=== PATIENT | female | born 1995 | race Caucasian/White ===

== ENCOUNTER 2023-03-31 14:00 | Outpatient (AMB) | payer OTHER, SELFPAY ==
--- NOTE | 2023-03-31 14:40 | AM.OFFWIN_ITS ---
Intake Vital Signs 03/31/23 15:24 Height 5 ft 2 in Weight 261 lb BMI 47.7 BP 114/70 Blood Pressure Location Lt brachial Position Sitting Pulse 96 Pulse Source Pulse Oximeter Temp 98.1 F Temp Source Temporal Artery Scan Pulse Oximetry (%) 99 Oxygen Delivery Method Room Air Intake Visit Reasons: EST/sore throat (lobby masked) Intake Note: pt is here today for sore throat started yesterday Allergies No Known Allergies Allergy (Verified 03/31/23 15:41) Medication List - Last Reconciled 03/31/23 by Bruce Mcgrath MD No Known Home Meds Do you need a note to return to daycare/school/sports/work: Yes HPI EST/sore throat (lobby masked) HPI Details Patient presents for a sick visit. Reporting symptoms of sinus congestion, sore throat and difficulty swallowing. Low-grade fever. No family member is sick. No recent travel. Patient reports symptoms of malaise and fatigue. HPI Comments History of Present Illness Details Patient is a 28-year-old female in today for a sick visit. Physical Exam Vital Signs: Last Vital Signs Temp 98.1 F 03/31/23 15:24 Pulse 96 03/31/23 15:24 BP 114/70 03/31/23 15:24 Pulse Ox 99 03/31/23 15:24 Oxygen Delivery Method Room Air 03/31/23 15:24 BMI result Body Mass Index 47.7 Const General: cooperative and healthy appearing Nutritional Appearance: well nourished Orientation/consciousness: patient oriented x3 Limitations: no limitations HEENT Head: Yes normal to inspection Eyes General: appearance normal, both eyes and all related structures Neck Neck: Yes normal visual inspection Chest Chest palpation & inspection: normal palpation of entire chest wall Resp Effort & Inspection: normal respiratory effort Neuro General: patient oriented x3 Results AMB Rapid Strep AMB Rapid Strep Negative Last Edit by SKYLER Taylor on 03/31/23 15: 52 Results Reviewed Results Reviewed: Laboratory Last Values Strep Scn [facility] Negative 03/31/23 15:51 Assessment & Plan Assessment & Plan (1) Upper respiratory tract infection: Code(s): J06.9 - Acute upper respiratory infection, unspecified Plan: Antibiotics ordered. Increase fluid intake. Tylenol for aches and pains. If symptoms worsen, follow-up here for a recheck. Orders: Orders AMB Rapid Strep Screen 03/31/23 Z13.9 - Encounter for screening, unspecified Medications: New azithromycin take 500 mg today (day 1), then 250 mg for 4 days (days 2-5) PO 6 tabs 0RF Coding Level of Care Code Est Pt Level 3 (35071) Diagnoses Upper respiratory tract infection J06.9
[2023-03-31 15:24] VITALS: BP 114/70; PULSE 96; TEMP 36.7; O2SAT 99; BMI 47.7
== END 2023-03-31 17:06 | disposition home or self-care (01) ==
PROVIDERS: Visit Provider Internal Medicine
DX: J06.9 Acute upper respiratory infection, unspecified (principal)
CPT/HCPCS: 87880; 99213

== ENCOUNTER 2023-12-17 10:24 | Outpatient (AMB) | payer OTHER, SELFPAY ==
--- NOTE | 2023-12-17 10:56 | MHC.PC.OV ---
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 Physical Exam Intake Note: New patient visit Talent Development Coordinator Required: No Allergies No Known Allergies Allergy (Verified 12/17/23 11:05) Medication List - Last Reconciled 12/17/23 by Becca Miller, [facility] albuterol sulfate 90 mcg/actuation 2 puffs inhalation Q6H PRN Tobacco use date assessed: 12/17/23 Dental Screening Dental Screen Date: 12/17/23 Did you have a dental visit in the last 12 months?: Yes Did you have a dental problem in the last 6 months where you did not have access to dental care?: No Was dental information given to patient?: Yes HPI HPI Comments History of Present Illness Details 28-year-old female with moderate persistent asthma, PCOS, morbid obesity, obstructive sleep apnea (home sleep study 05/18/2019), generalized anxiety disorder, seasonal allergies, prediabetes, hidradenitis suppurativa, fatty liver Status post appendectomy Family hx: Sister thyroid cancer 2022 age 27, Mom with MS, MGM DM, PGF COPD 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 Pediatric records reviewed prior to todays visit Sister dx w thyroid cancer 2022 HS - needs derm referral never had consult had nose bleed recently; came out left nares, + clot, lasted about 10 minutes, stopped. reports this is life long issue for her. denies signs of posterior bleeding. will be est care w new WASTEWATER T[employer]ATMENT PLANT SUPERVISOR leaving [facility] therapist in the past never been on meds, no hosp, no si/hi JETT not on CPAP, last sleep study 2019 Asthma PRN Varsha only, was active w/ pulm in the past. Declined flu Plan Routine screening labs today SBE edu provided today, do monthly on the same day as your birthday as your periods are irregular d/t PCOS Declined flu vaccine Refer to [facility] [place] endocrinology for evaluation of PCOS, prediabetes as well as for surveillance given the family history of thyroid cancer. Refer to dermatology for hidradenitis suppurativa Follow up with scale installer for routine fuel technician care Check sleep study to evaluate the degree of sleep apnea. It was mild in 2019. Not currently maintained on CPAP. Continue Varsha for asthma. Does not feel a maintenance inhaler as needed at this point. Check soft tissue ultrasound of the left lower extremity to evaluate the mass that is there. Return to the office in 6-8 weeks to follow up on labs consults and asthma, sooner as needed. This note is constructed using voice recognition software. While every effort has been made to ensure accuracy in network operations analyst, still errors may have been included Sometimes, these errors may affect the content or meaning of the given sentence . [facility] Medical History (Updated 12/18/23 @ 14:49 by Becca Miller [facility]) Anxiety IBS (irritable bowel syndrome) Asthma Surgical History (Updated 12/17/23 @ 11:10 by Patricia Reeves CMA) Hx of appendectomy Family History (Updated 12/17/23 @ 11:09 by Patricia Reeves CMA) Father HTN (hypertension) Maternal Grandmother Diabetes Mother Cancer Other Thyroid cancer Social History (Updated 12/17/23 @ 11:10 by Patricia Reeves CMA) Housing: House Patient Tobacco Use Status: Never used Tobacco e-Cigarette/Vaping Use: Never Used Second Hand Smoke Exposure: No service: No Current occupational status: employed 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 1. Little interest or pleasure in doing things: several days 2. Feeling down, depressed, or hopeless: several days 3. Trouble falling or staying asleep, or sleeping too much: more than half the days 4. Feeling tired or having little energy: several days 5. Poor appetite or overeating: not at all 6. Feeling bad about yourself - or that you are a failure or have let yourself or your family down: not at all 7. Trouble concentrating on things, such as reading the newspaper or watching television: not at all 8. Moving or speaking so slowly that other people could have noticed. Or the opposite - being so fidgety or restless that you have been moving around a lot more than usual: not at all 9. Thoughts that you would be better off or of hurting yourself in some way: not at all Total score: 5 Depression Screening Interpretation: Positive Depression Screening Done: Yes 13854 - PHQ-9 Billing: Yes Source: Developed by Drs. Avtar Tanner, Doris Akins, Raza Lobato and colleagues, with an educational viktor from [employer]. Thrive Questionnaire Date Thrive assessed: 12/17/23 I am a: Patient What is your living situation today?: I have a steady place to live Within the past 12 months, did the food you bought not last and you didn't have the money to get more?: Never true Within the past 12 months, did you worry whether your food would run out before you got money to buy more?: Never true Do you have trouble paying for medicines?: No Do you have trouble getting transportation to medical appointments?: No Do you have trouble paying your heating and electricity bill?: No Do you have trouble taking care of your child, family member or friend?: No Are you currently unemployed and looking for a job?: No Are you interested in more education?: Yes Please select the resources that you would like help with: Education Currently or been in a relationship where the following occur: No concerns reported THRIVE Score: 0 AUDIT C Alcohol Use Questionnaire (AUDIT-C) 1. How often do you have a drink containing alcohol?: Monthly or less 2. How many drinks containing alcohol do you have on a typical day when you are drinking?: 3 or 4 3. How often do you have six or more drinks on one occasion?: Never Total Score: 2 Score Reviewed/Action Taken: Yes FRANKLIN-7 AMB Questionnaire FRANKLIN-7 Date FRANKLIN - 7 assessed: 12/17/23 Feeling nervous, anxious, or on edge: 1 = Several days Not being able to stop or control worryin = Several days Worrying too much about different things: 1 = Several days Trouble relaxin = Several days Being so restless that it is hard to sit still: 0 = Not at all Becoming easily annoyed or irritable: 1 = Several days Feeling afraid as if something awful might happen: 0 = Not at all Total FRANKLIN-7 score (0-4 normal; 5-9 mild; 10-14 moderate; 15-21 severe): 5 Source: Developed by Drs. Avtar Tanner, Doris Akins, Raza Lobato and colleagues, with an educational viktor from [employer]. FRANKLIN-7 Assessment Billing FRANKLIN-7 Assessment Tool: FRANKLIN-7 Assessment 44654 ACT Questionnaire In the past 4 weeks, how much of the time did your asthma keep you from getting as much done at work, school or at home?: None of the time During the past 4 weeks, how often have you had shortness of breath?: 1-2 times a week During the past 4 weeks, how often did your asthma symptoms wake you up at night or earlier than usual in the morning?: Not at all During the past 4 weeks, how often have you had to use your rescue inhaler or nebulizer medication?: Once a week or less How would you rate your asthma control during the past 4 weeks?: Well controlled ACT Interpretation: Negative Score: 22 Review of Systems Const Details: Constitutional: Denies fever. Skin: Denies rash. Eye: Denies eye pain. ENMT: Denies sore throat and nasal congestion. Respiratory: Denies shortness of breath and cough. Gastrointestinal: Denies nausea, vomiting or abdominal pain. Cardiovascular: Denies chest pain and syncope. Genitourinary: Denies dysuria. Musculoskeletal: Denies back pain and extremity pain. Neurologic: Denies headaches, confusion, and weakness. Psychiatric: Denies suicidal thoughts and substance abuse. Allergy/ Immunologic: Denies impaired immunity. Physical exam (Primary Care) Vital Signs: Last Vital Signs Temp 98.8 F 12/17/23 11:01 Pulse 96 12/17/23 11:01 Resp 14 12/17/23 11:01 BP 108/84 12/17/23 11:01 Pulse Ox 97 12/17/23 11:01 Oxygen Delivery Method Room Air 12/17/23 11:01 BMI result Body Mass Index 47.2 BMI Assessment/Plan discussion: High BMI High, discussed plan: lifestyle Tobacco/Smoking Status: Tobacco use Status Tobacco use date assessed 12/17/23 12/17/23 11:11 Patient Tobacco Use Status Never used Tobacco 12/17/23 11:11 e-Cigarette/Vaping Use Never Used 12/17/23 11:11 PHQ-9: PHQ-9 Score PHQ-9: Total score 5 12/17/23 12:07 Depression Screening Interpretation: Positive Thrive Assessment: Date of Thrive Assessment Date Thrive assessed 12/17/23 12/17/23 11:11 Currently or been in a relationship where the following occur: No concerns reported Const Other: General: Well developed, well nourished, in no acute distress. Appears stated age. Head: Normocephalic, atraumatic. Eyes: Pupils are equal, round and reactive to light and accommodation. Conjunctivae are clear. Vision grossly normal. Ears: TMs clear AU, EACS WNL Nose: Patent, without discharge. Mouth: There are no ulcers or lesions noted. No inflammation, no post nasal drip, no plaques nor exudates. Neck: Supple, no adenopathy or thyromegaly. Acanthosis nigricans Lungs: Clear to auscultation bilaterally. No rales, rhonchi or wheeze noted. Good air flow in all kennedy. Heart: Regular rate and rhythm. No murmurs, click, rubs or gallops are noted. Abdomen: Bowel sounds present in all quadrants. The abdomen is soft, nontender, with no masses or organomegaly noted. No hernias are noted. Musculoskeletal: Joints are nontender, without swelling, redness, or effusions. Range of motion is observed to be normal. Lateral aspect of left lower extremity there is a soft mobile mass about the size of a grape. Patient states that this developed after an injury and has been there ever since. She reports that it gets larger with activity. Pulses: Peripheral pulses are equal and palpable bilaterally. Extremities: No clubbing, cyanosis nor edema is noted. Neurologic: Gait and station normal. Cranial Nerves 2-12 intact. Motor strength grossly symmetrical and intact. No sensory loss. Balance normal. Skin: No rashes, ulcers, or lesions noted. Turgor is good. Skin color is good. Hair and nails are without abnormalities. Psych: Normal eye contact, affect and mood appropriate, and normal interactions. Patient is alert and appropriate to context. Assessment and Plan Assessment & Plan (1) Encounter for general adult medical examination without abnormal findings: Code(s): Z00.00 - Encounter for general adult medical examination without abnormal findings (2) Family history of thyroid cancer: Comment: sister Code(s): Z80.8 - Family history of malignant neoplasm of other organs or systems (3) PCOS (polycystic ovarian syndrome): Code(s): E28.2 - Polycystic ovarian syndrome (4) Prediabetes: Code(s): R73.03 - Prediabetes (5) Hidradenitis suppurativa: Code(s): L73.2 - Hidradenitis suppurativa (6) JETT (obstructive sleep apnea): Code(s): G47.33 - Obstructive sleep apnea (adult) (pediatric) (7) Mass of left lower leg: Code(s): R22.42 - Localized swelling, mass and lump, left lower limb (8) Morbid obesity with BMI of 45.0-49.9, adult: Code(s): E66.01 - Morbid (severe) obesity due to excess calories; Z68.42 - Body mass index [BMI] 45.0-49.9, adult (9) Hepatic steatosis: Code(s): K76.0 - Fatty (change of) liver, not elsewhere classified (10) FRANKLIN (generalized anxiety disorder): Code(s): F41.1 - Generalized anxiety disorder (11) Moderate persistent asthma: Code(s): J45.40 - Moderate persistent asthma, uncomplicated Qualifiers: Asthma complication type: uncomplicated Qualified Code(s): J45.40 - Moderate persistent asthma, uncomplicated (12) Laboratory exam ordered as part of routine general medical examination: Code(s): Z00.00 - Encounter for general adult medical examination without abnormal findings Orders: Orders Hemoglobin A1c 12/17/23 E28.2 - Polycystic ovarian syndrome, R73.03 - Prediabetes, Z00.00 - Encounter for general adult medical examination without abnormal findings Lipid Panel 12/17/23 E28.2 - Polycystic ovarian syndrome, R73.03 - Prediabetes, Z00.00 - Encounter for general adult medical examination without abnormal findings Microalbumin, Random (w Creat) 12/17/23 E28.2 - Polycystic ovarian syndrome, R73.03 - Prediabetes, Z00.00 - Encounter for general adult medical examination without abnormal findings TSH reflex Free T4 12/17/23 E28.2 - Polycystic ovarian syndrome, R73.03 - Prediabetes, Z00.00 - Encounter for general adult medical examination without abnormal findings Vitamin B12 and Folate 12/17/23 E28.2 - Polycystic ovarian syndrome, R73.03 - Prediabetes, Z00.00 - Encounter for general adult medical examination without abnormal findings Vitamin D 1,25 dihydroxy 12/17/23 E28.2 - Polycystic ovarian syndrome, R73.03 - Prediabetes, Z00.00 - Encounter for general adult medical examination without abnormal findings Comprehensive [place]. Panel Fast 12/17/23 E28.2 - Polycystic ovarian syndrome, R73.03 - Prediabetes, Z00.00 - Encounter for general adult medical examination without abnormal findings Complete Blood Count no Diff 12/17/23 E28.2 - Polycystic ovarian syndrome, R73.03 - Prediabetes, Z00.00 - Encounter for general adult medical examination without abnormal findings RT home sleep study 12/17/23 G47.33 - Obstructive sleep apnea (adult) (pediatric) US extremity nonvascular 12/17/23 R22.42 - Localized swelling, mass and lump, left lower limb Referrals Endocrinology Referral E28.2 - Polycystic ovarian syndrome, R73.03 - Prediabetes, Z80.8 - Family history of malignant neoplasm of other organs or systems Dermatology Referral L73.2 - Hidradenitis suppurativa Medications: New albuterol sulfate 90 mcg/actuation 2 puffs inhalation Q6H PRN 8.5 grams 1RF bronchospasm Patient Instructions: Walk-In Care (Urgent Care): We Make it Easy Walk-in for urgent medical issues such as: ? Seasonal Allergies ? Insect Bites ? Cough ? Diarrhea ? Acute Asthma Attacks ? Back, Knee or Joint Pain ? Ear Infection ? Fever without a Rash ? Headaches ? Nausea ? [place], Rash or Skin Irritation ? Sore Throat ? Sports Physicals ? Vomiting Most insurances are accepted. Patients do not need to be part of the [facility] to seek care at the walk-in clinic. Locations [facility] [address], [place] [address] ? [phone] [facility] in [place] provides services to ages 18 and over. Open Wednesday-Wednesday: 8 a.m. to 5 p.m. and Wednesday: 9 a.m. to 3 p.m.* *Hours may vary due to staffing availability. To confirm Walk-In Care hours in [place], please call [phone]. [address] [place] [address] ? [phone] [facility] Walk-In Care in [place] provides services to ages 12 and over. Open Wednesday-Wednesday: 8 a.m. to 5 p.m. Hours may vary due to staffing availability. To confirm Walk-In Care hours in [place], please call [phone]. LABORATORY SERVICES: [facility] ? Primary Location [address] [place] [address] Wednesday through Wednesday 6:00 AM ? 5:00 PM Wednesday 7:00 AM ? 11:00 AM* [phone] The [facility] is centrally located near the front entrance of the [facility] for easy outpatient access. Convenient parking is provided for outpatients. *Hours may vary due to staffing availability. To confirm Laboratory hours for any location, please call [phone]. Offsite Location For your convenience, we offer offsite laboratory draw stations at the following locations: [address] [place] [address] ? [address], [address] Wednesday through Wednesday 7:30 AM ? 1:00 PM* [phone] *Hours may vary due to staffing availability. To confirm Laboratory hours for any location, please call [phone]. [place] ? [address] Wednesday through Wednesday 6:00 AM ? 3:30 PM* Wednesday 6:30 AM ? 3 PM* [phone] *Hours may vary due to staffing availability. To confirm Laboratory hours for any location, please call [phone] [place] [address] Wednesday through Wednesday 7:30 AM ? 4:00 PM* [phone] *Hours may vary due to staffing availability. To confirm Laboratory hours for any location, please call [phone] [place] [address] Wednesday through 9:00 AM ? 4:00 PM* *Hours may vary due to staffing availability. To confirm Laboratory hours for any location, please call [phone]. Appointments are not necessary. Walk-ins are welcome. Like all the departments throughout the [facility], our Lab undergoes frequent reviews to ensure the quality and accuracy of test results, and our staff takes special pride in its status as a nationally accredited facility. Patient Portal: ONE PATIENT. ONE RECORD. BETTER CARE. [facility] has a fully integrated, cutting-edge mobile electronic health information system that has revolutionized the way we care for our patients and manage our organization. This system improves communication and coordination enabling us to provide safe, higher-quality care, and an overall positive experience for staff and patients. Our first priority, as always, is to deliver the highest quality care possible. The system is running in the background supporting that priority. This portal is for all [facility] services and practices. If you are experiencing any technical difficulties with enrolling or logging into the Patient Portal please complete the [facility] Patient Portal Technical Support Form. [facility] now offers a new secure on-line interactive tool for patients to review their health information ? ?Patient Portal. This interactive web portal will enable patients and their families to take an active role in their care by providing easy, secure access to their health information via the internet. The Patient Portal provides patients with instant access to their health information, including laboratory results, medications, allergies, demographic information, visit history, and more. In addition to managing their own care, parents and health care proxies with authorized consent will appreciate the ability to access the records of those individuals for whom they provide care. Please note: if you wish to gain access (Proxy) to another patient?s portal, you will be required to come to the Medical Records Department in person at [facility]. Both the patient giving proxy access and the proxy will need to provide photo identification and complete the appropriate authorization. The Patient Portal also allows track their appointments online. The [facility] Patient Portal also saves patients time by allowing them to submit updates to their demographic and contact information prior to their visits. Portal email notifications will also alert patients to any new activity on their portal, such as test results and new appointments. In order to initially enroll in the [facility] Patient Portal, you will need to enter some required information including the following: your [facility] Medical Record number your personal home email address name date of Please note: In order to enroll in the [facility] Patient Portal, we need to have your email address on file in your electronic medical record. ?The email address needs to be specific for one person (yourself) in order for your Portal enrollment to be successful. ?You can update your email address in person with our Registration staff when you are registering for a hospital visit. ?Otherwise, you will need to come to the Health Information Management (Medical Records) Department at [facility]. ?We are open from Wednesday ? Wednesday from 7:30 a.m. ? 4:30 p.m. ?You will be required to present a photo id. Once you have successfully enrolled in the Patient Portal, you will receive a one-time user id and password for the Portal, sent to your email address. ?This will allow you to log into the Patient Portal within 99 hrs and reset your own logon id and password, and define personal security questions. ?Once your permanent login and password have been set, you can log into the [facility] Patient Portal at any time via the blue button above or from the Portal Logon button on any page of the [facility] website. [facility] and [facility] encourage all of our patients to enroll in Patient Portal as it presents a valuable opportunity for patients and their families to actively participate in their care and stay healthy Welcome to [facility]. ?We look forward to working with you. Health screenings for women You should visit your health care provider from time to time, even if you are healthy. The purpose of these visits is to: Screen for medical issues Assess your risk for future medical problems Encourage a healthy lifestyle Update vaccinations and other preventive care services Help you get to know your provider in case of an illness Information Even if you feel fine, you should still see your provider for regular checkups. These visits can help you avoid problems in the future. For example, the only way to find out if you have high blood pressure is to have it checked regularly. High blood sugar and high cholesterol levels also may not have any symptoms in the early stages. A simple blood test can check for these conditions. There are specific times when you should see your provider or receive specific health screenings. The [place] Preventive Services Task Force publishes a list of recommended screenings. Below are screening guidelines for women ages 18 to 39. BLOOD PRESSURE SCREENING Your blood pressure should be checked at least once every 3 to 5 years if: Your blood pressure is in the normal range (top number less than 120 mm Hg and bottom number less than 80 mm Hg) You don't have risk factors for high blood pressure Ask your provider if you need your blood pressure checked more often if: The top number is 120 to 129 mm Hg or the bottom number is 70 to 79 mm Hg You have diabetes, heart disease, kidney problems, are overweight, or have certain other health conditions You have a first-degree relative with high blood pressure You are Black You had high blood pressure during a If the top number is 130 mm Hg or greater or the bottom number is 80 mm Hg or greater, this is considered stage 1 hypertension. Schedule an appointment with your provider to learn how you can reduce your blood pressure. Watch for blood pressure screenings in your area. Ask your provider if you can stop in to have your blood pressure checked. BREAST CANCER SCREENING Experts do not agree about the benefits of breast self-exams in finding breast cancer or saving lives. Talk to your provider about what is best for you. A screening mammogram is not recommended for most women under age 40. Your provider may discuss and recommend mammograms, MRI scans, or ultrasounds if you have an increased risk for breast cancer, such as: A mother or sister who had breast cancer at a young age (most often starting screening earlier than the age the close relative was diagnosed) You carry a high-risk genetic marker CERVICAL CANCER SCREENING Cervical cancer screening should start at age 21 years unless your provider advises otherwise. After the first test: Women ages 21 through 29 should have a Pap test every 3 years. Exoprts do not agree on whether HPV testing is recommended for this age group. Women ages 30 through 65 should be screened with either a Pap test every 3 years or the HPV test every 5 years or both tests every 5 years (called cotesting ). Women who have been treated for precancer (cervical dysplasia) should continue to have Pap tests for 20 years after treatment or until age 65, whichever is longer. If you have had your uterus and cervix removed (total hysterectomy), and you have not been diagnosed with cervical cancer or precancer (high grade cervical neoplasia), you do not need cervical cancer screening. CHOLESTEROL SCREENING Cholesterol screening should begin at: Age 45 for women with no known risk factors for coronary heart disease Age 20 for women with known risk factors for coronary heart disease Repeat cholesterol screening should take place: Every 5 years for women with normal cholesterol levels More often if changes occur in lifestyle (including weight gain and diet) More often if you have diabetes, heart disease, kidney problems, or certain other conditions DIABETES SCREENING You should be screened for diabetes starting at age 35 and then repeated every 3 years if you have no risk factors for diabetes. Screening may need to start earlier and be repeated more often if you have other risk factors for diabetes, such as: You have a first degree relative with diabetes. You are overweight or have obesity. You have high blood pressure, prediabetes, or a history of heart disease. Screening for diabetes should be done if you are planning to become and you are overweight and have other risk factors such as high blood pressure. DENTAL EXAM Go to the dentist once or twice every year for an exam and cleaning. Your dentist will evaluate if you need more frequent visits. EYE EXAM Have an eye exam every 5 to 10 years before age 40. If you have vision problems, have an eye exam every 2 years or more often if recommended by your provider. You should have an eye exam that includes an examination of your retina (back of your eye) at least every year if you have diabetes. IMMUNIZATIONS Commonly needed vaccines include: Flu shot: get one every year. COVID-19 vaccine: ask your provider what is best for you. Tetanus-diphtheria and acellular pertussis (Tdap) vaccine: have one at or after age 19 as one of your tetanus-diphtheria vaccines if you did not receive it as an adolescent. Tetanus-diphtheria: have a booster (or Tdap) every 10 years. Varicella vaccine: receive 2 doses if you never had chickenpox or the varicella vaccine. Hepatitis B vaccine: receive 2, 3, or 4 doses, depending on your exact circumstances. Measles, mumps, and rubella (MMR) vaccine: receive 1 to 2 doses if you are not already immune to MMR. Your provider can tell you if you are immune. Ask your provider about the human papillomavirus (HPV) vaccine if: You have not received the HPV vaccine in the past You have not completed the full vaccine series (you should catch up on this shot) Ask your provider if you should receive other immunizations if you have certain health problems that increase your risk for some diseases such as pneumonia. INFECTIOUS DISEASE SCREENING Women who are sexually active should be screened for chlamydia and gonorrhea up until age 25. Women 25 years and older should be screened for chlamydia and gonorrhea if at high risk. Screening for hepatitis C: All adults ages 18 to 79 should get a one-time test for hepatitis C. people should be screened at every . Screening for human immunodeficiency virus (HIV): All people ages 15 to 65 should get a one-time test for HIV. Depending on your lifestyle and medical history, you may also need to be screened for infections such as syphilis and HIV, as well as other infections. PHYSICAL EXAM All adults should visit their provider from time to time, even if they are healthy. The purpose of these visits is to: Screen for disease Assess your risk of future medical problems Encourage a healthy lifestyle Update your vaccinations and other preventive care services Maintain a relationship with a provider in case of an illness Your height, weight, and BMI should be checked at every exam. During your exam, your provider may ask you about: Depression and anxiety Diet and exercise Alcohol and tobacco use Safety issues, such as using seat belts, smoke detectors, and intimate partner violence Your medicines and risk for interactions SKIN SELF-EXAM Your provider may check your skin for signs of skin cancer, especially if you're at high risk, such as if you: Have had skin cancer before Have close relatives with skin cancer Have a weakened immune system OTHER SCREENING Talk with your provider about colon cancer screening if you have a strong family history of colon cancer or polyps, or if you have had inflammatory bowel disease or polyps yourself. Routine bone density screening of women under 40 is not recommended. Review Flu Vaccine not done: patient reason Coding Level of Care Code New Pt Prev Care 18-39yr(52313 Diagnoses Encounter for general adult medical examination without abnormal findings Z00.00 Family history of thyroid cancer Z80.8 PCOS (polycystic ovarian syndrome) E28.2 Prediabetes R73.03 Hidradenitis suppurativa L73.2 JETT (obstructive sleep apnea) G47.33 Mass of left lower leg R22.42 Morbid obesity with BMI of 45.0-49.9, adult E66.01; Z68.42 Hepatic steatosis K76.0 FRANKLIN (generalized anxiety disorder) F41.1 Moderate persistent asthma without complication J45.40 Asthma complication type: uncomplicated Laboratory exam ordered as part of routine general medical examination Z00.00 Additional Codes FRANKLIN-7 Assessment Billing - FRANKLIN-7 Assessment Tool: FRANKLIN-7 Assessment 90297 ([id number])
[2023-12-17 11:01] VITALS: BP 108/84; PULSE 96; RESP 14; TEMP 37.1; O2SAT 97; BMI 47.2
== END 2023-12-17 11:48 | disposition home or self-care (01) ==
PROVIDERS: PCP Nurse Practitioner Family; Visit Provider Nurse Practitioner Family
DX: Z00.00 Encounter for general adult medical examination without abnormal findings (principal); E66.01 Morbid (severe) obesity due to excess calories; Z68.42 Body mass index [BMI] 45.0-49.9, adult; Z80.8 Family history of malignant neoplasm of other organs or systems; E28.2 Polycystic ovarian syndrome; R73.03 Prediabetes; L73.2 Hidradenitis suppurativa; G47.33 Obstructive sleep apnea (adult) (pediatric); R22.42 Localized swelling, mass and lump, left lower limb; K76.0 Fatty (change of) liver, not elsewhere classified; F41.1 Generalized anxiety disorder; J45.40 Moderate persistent asthma, uncomplicated
CPT/HCPCS: 99385

== ENCOUNTER 2024-01-13 12:34 | Outpatient (REF) | payer OTHER, SELFPAY ==
--- NOTE | ~2024-01-13 | US_ITS ---
EXAMINATION: US THYROID CLINICAL INFORMATION: Family history of malignant neoplasm of other organs or systems. COMPARISON: None available. TECHNIQUE: Linear transducer grayscale and color Doppler examination with attention to the region of the thyroid. FINDINGS: SIZE: Measurements of the thyroid lobes and nodules are given in sagittal, anteroposterior and transverse dimensions respectively. Right Thyroid Lobe: 5.1 x 1.9 x 2.2 cm, volume 11 mL. Parenchyma: The gland echotexture is homogeneous. Thyroid vascularity is normal. Left Thyroid Lobe: 4.9 x 1.6 x 2.0 cm, volume 8 mL. Parenchyma: The gland echotexture is homogeneous. Thyroid vascularity is normal. Isthmus: 0.3 cm in maximum AP dimension. Estimated total number of nodules greater than or equal to 1 cm: 2. Claims Vice President nodules are described as follows: 1. Location: Right mid. Size: 0.9 x 0.5 x 0.7 cm, volume 0.16 mL. Nodule characteristics: Composition: Solid (2). Echogenicity: Hypoechoic (2). Shape: Not taller than wide (0). Margins: Ill-defined (0). Echogenic Foci: None (0). ACR TI-RADS total points: 4 ACR TI-RADS category: 4 2. Location: Right inferior. Size: 1.1 x 1.2 x 1.0 cm, volume 0.8 mL. Nodule characteristics: Composition: Mixed cystic and solid (1). Echogenicity: Isoechoic (1). Shape: Not taller than wide (0). Margins: Ill-defined (0). Echogenic Foci: None (0). ACR TI-RADS total points: 5 ACR TI-RADS category: 4 3. Location: Right inferior. Size: 0.7 x 0.6 x 0.8 cm, volume 0.16 mL. Nodule characteristics: Composition: Solid/almost completely solid (2). Echogenicity: Isoechoic (1). Shape: Not taller than wide (0). Margins: Ill-defined (0). Echogenic Foci: None (0). ACR TI-RADS total points: 3 ACR TI-RADS category: 3 4. Location: Left inferior. Size: 1.3 x 0.7 x 1.1 cm, volume 0.5 mL. Nodule characteristics: Composition: Mixed cystic and solid (1). Echogenicity: Isoechoic (1). Shape: Not taller than wide (0). Margins: Ill-defined (0). Echogenic Foci: None (0). ACR TI-RADS total points: 2 ACR TI-RADS category: 2 5. Location: Left inferior. Size: 1.2 x 0.6 x 0.7 cm, volume 0.3 mL. Nodule characteristics: Composition: Solid/almost completely solid (2). Echogenicity: Isoechoic (1). Shape: Not taller than wide (0). Margins: Ill-defined (0). Echogenic Foci: None (0). ACR TI-RADS total points: 3 ACR TI-RADS category: 3 NODES: No lymphadenopathy is seen in the tissue surrounding the thyroid gland. US/US thyroid IMPRESSION: Right inferior pole 1.2 cm TI-RADS 4 nodule. Remaining nodules do not meet size criteria for follow-up. ACR TI-RADS RECOMMENDATION REFERENCE: Ultrasound-guided fine-needle aspiration, followup ultrasound, no further follow up. * TR1 (0 point) and TR2 (2 points): No FNA or follow up. * TR3 (3 points): FNA if more than or equal to 2.5 cm in maximum dimension, followup ultrasound in 1, 3 and 5 years if 1.5 to 2.4 cm in maximum dimension. * TR4 (4-6 points): FNA if more than or equal to 1.5 cm in maximum dimension, followup ultrasound in 1, 2, 3 and 5 years if 1 to 1.4 cm in maximum dimension. * TR5 (more than or equal to 7 points): FNA if more than or equal to 1 cm in maximum dimension, followup ultrasound every year for 5 years if 0.5 to 0.9 cm in maximum dimension. * TR3, TR4 or TR5 nodules that are below the size threshold for followup receive no follow up. Electronically signed by: Katheryn Loyd MD 01/24/2024 06:00 PM EDT
--- NOTE | ~2024-01-13 | US_ITS ---
EXAMINATION: ULTRASOUND SOFT TISSUES LEFT LOWER EXTREMITY CLINICAL INDICATION: Localized swelling, mass and lump left lower lobe limb. COMPARISON: None available. TECHNIQUE: Targeted ultrasound images were obtained by the narcotics detective of the area of concern as indicated by the patient in the distal lateral left calf. Radiologist was not in attendance. Images were later provided for interpretation. FINDINGS: No discrete mass or fluid collection is identified in the area of concern indicated by the patient in the distal lateral left calf. US/US extremity nonvascular IMPRESSION: No discrete mass or fluid collection is identified in the area of concern indicated by the patient in the distal lateral left calf. Decisions regarding further imaging, treatment or biopsy should be based on the clinical exam, as not all abnormalities are detectable on ultrasound studies. Electronically signed by: Petra Calderon MD 01/25/2024 01:07 PM EDT
== END 2024-01-13 12:35 | disposition home or self-care (01) ==
LOC: HO.US 12:34
PROVIDERS: PCP Nurse Practitioner Family; Visit Provider Nurse Practitioner Family
DX: R22.42 Localized swelling, mass and lump, left lower limb (principal); E01.0 Iodine-deficiency related diffuse (endemic) goiter; E28.2 Polycystic ovarian syndrome; R73.03 Prediabetes; Z80.8 Family history of malignant neoplasm of other organs or systems
CPT/HCPCS: 76536; 76882

== ENCOUNTER 2024-01-24 08:44 | Outpatient (AMB) | payer OTHER, SELFPAY ==
--- NOTE | 2024-01-24 08:45 | MHC.PC.OV ---
Vital Signs 01/24/24 08:50 01/24/24 09:33 Height 5 ft 2 in Weight 256 lb 8 oz BMI 46.9 BP 122/72 Blood Pressure Location Lt brachial Position Sitting Respiration 14 Pulse 111 H 91 Pulse Source Pulse Oximeter Auscultation Pulse Oximetry (%) 97 Oxygen Delivery Method Room Air Intake Visit Reasons: 6-8 weeks f/u on consults, labs, asthma Intake Note: follow up on labs and ultrasound Allergies No Known Allergies Allergy (Verified 01/24/24 09:13) Medication List - Last Reconciled 01/24/24 by Becca Miller, ADOBE BALL MIXER- albuterol sulfate 90 mcg/actuation 2 puffs inhalation Q6H PRN Tobacco use date assessed: 12/17/23 Dental Screening Dental Screen Date: 12/17/23 HPI HPI Comments History of Present Illness Details 28-year-old female with moderate persistent asthma, PCOS, morbid obesity, obstructive sleep apnea (home sleep study 05/18/2019), generalized anxiety disorder, seasonal allergies, prediabetes, hidradenitis suppurativa, fatty liver Status post appendectomy Family hx: Sister thyroid cancer 2022 age 27, Mom with MS, MGM DM, PGF COPD 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 Using LINDA. More so with colder weather. This does seem to help. Denies any cough at night. Plan: Start Arnuity 50mcg/dl Endo: [facility] endo referral placed, not accepting patients. US of thyroid done 01/13/24 .... Results pending at this time. Rad insurance case manager sent message for a read pending of the cause at this note PCOS: cont w irregular periods; heavy at times; has initial consult w/ [facility]ET[facility]ALL CO[facility] in Mar. Discussed today, will wait to see what happens at this consult before starting any medications. Derm: referred - out to [place], [facility] appt 06/2024. This is the only place that works w/ her insurance. Sleep study to be done at home 10.23.24 FRANKLIN: feeling anxious, worse over the last few weeks. Has never been on meds. Interested in counseling. Labs from 01/04/2024 done at [facility] and [facility] show a WBC of 11.2, MCHC 31.5, platelets 410 otherwise normal CBC, normal folate and B12, glucose 101 with a hemoglobin A1c of 5.7%, otherwise normal CMP, normal lipid profile, normal TSH and vitamin-D, normal urine microalbumin creatinine ratio Exam Awake alert oriented no acute distress Acanthosis nigricans Regular rate and rhythm Lung sounds clear to auscultation bilat Tearful when talking about mood otherwise appropriate Plan: Start Arnuity 50mcg/day, goal LINDA use < 2 x week FU with BASKETBALL COACH - let me know via portal if they wont manage the PCOS FU with Derm as scheduled, call and see if somewhere local takes you insurance, make appt and let me know via portal so i can update referral Counseling referral Start buspar 5mg po BID. titrate to effect I will send US image reports via portal once avail we can discuss sleep study results at fu appt 6 weeks 30 min, sooner PRN This note is constructed using voice recognition software. While every effort has been made to ensure accuracy in assistant program manager, still errors may have been included Sometimes, these errors may affect the content or meaning of the given sentence . Total time spent caring for the patient today was 30 minutes. This includes time spent before the visit reviewing the chart, time spent during the visit, and time spent after the visit on documentation [facility] Medical History (Updated 12/18/23 @ 14:49 by Becca Miller [facility] Anxiety IBS (irritable bowel syndrome) Asthma Surgical History (Updated 12/17/23 @ 11:10 by Patricia Reeves CMA) Hx of appendectomy Family History (Updated 12/17/23 @ 11:09 by Patricia Reeves CMA) Father HTN (hypertension) Maternal Grandmother Diabetes Mother Cancer Other Thyroid cancer Social History (Updated 12/17/23 @ 11:10 by Patricia Reeves CMA) Housing: House Patient Tobacco Use Status: Never used Tobacco e-Cigarette/Vaping Use: Never Used Second Hand Smoke Exposure: No service: No Current occupational status: employed 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 1. Little interest or pleasure in doing things: not at all 2. Feeling down, depressed, or hopeless: several days 3. Trouble falling or staying asleep, or sleeping too much: more than half the days 4. Feeling tired or having little energy: several days 5. Poor appetite or overeating: not at all 6. Feeling bad about yourself - or that you are a failure or have let yourself or your family down: several days 7. Trouble concentrating on things, such as reading the newspaper or watching television: several days 8. Moving or speaking so slowly that other people could have noticed. Or the opposite - being so fidgety or restless that you have been moving around a lot more than usual: not at all 9. Thoughts that you would be better off or of hurting yourself in some way: not at all Total score: 6 63711 - PHQ-9 Billing: Yes Source: Developed by Drs. Avtar Tanner, Doris Akins, Raza Lobato and colleagues, with an educational viktor from [employer]. Thrive Questionnaire Date Thrive assessed: 12/17/23 AUDIT C Alcohol Use Questionnaire (AUDIT-C) 2. How many drinks containing alcohol do you have on a typical day when you are drinking?: 3 or 4 3. How often do you have six or more drinks on one occasion?: Less than monthly Total Score: 2 FRANKLIN-7 AMB Questionnaire FRANKLIN-7 Date FRANKLIN - 7 assessed: 12/17/23 Feeling nervous, anxious, or on edge: 2 = More than half the days Not being able to stop or control worryin = More than half the days Worrying too much about different things: 2 = More than half the days Trouble relaxin = Several days Being so restless that it is hard to sit still: 1 = Several days Becoming easily annoyed or irritable: 2 = More than half the days Feeling afraid as if something awful might happen: 2 = More than half the days Total FRANKLIN-7 score (0-4 normal; 5-9 mild; 10-14 moderate; 15-21 severe): 12 Source: Developed by Drs. Avtar Tanner, DorisRaza Ortiz and colleagues, with an educational viktor from [employer]. FRANKLIN-7 Assessment Billing FRANKLIN-7 Assessment Tool: FRANKLIN-7 Assessment 87367 ACT Questionnaire In the past 4 weeks, how much of the time did your asthma keep you from getting as much done at work, school or at home?: None of the time During the past 4 weeks, how often have you had shortness of breath?: 1-2 times a week During the past 4 weeks, how often did your asthma symptoms wake you up at night or earlier than usual in the morning?: Not at all During the past 4 weeks, how often have you had to use your rescue inhaler or nebulizer medication?: 2-3 times a week How would you rate your asthma control during the past 4 weeks?: Somewhat controlled Score: 20 Physical exam (Primary Care) Vital Signs: Last Vital Signs Pulse 91 01/24/24 09:33 Resp 14 01/24/24 08:50 BP 122/72 01/24/24 08:50 Pulse Ox 97 01/24/24 08:50 Oxygen Delivery Method Room Air 01/24/24 08:50 BMI result Body Mass Index 46.9 Tobacco/Smoking Status: Tobacco use Status Tobacco use date assessed 12/17/23 01/24/24 08:47 Patient Tobacco Use Status Never used Tobacco 01/24/24 08:47 e-Cigarette/Vaping Use Never Used 01/24/24 08:47 PHQ-9: PHQ-9 Score PHQ-9: Total score 6 01/24/24 09:35 Thrive Assessment: Date of Thrive Assessment Date Thrive assessed 12/17/23 01/24/24 08:47 Coding Level of Care Code Est Pt Level 4 (27769) Complex EM visit Add On G2211 Diagnoses FRANKLIN (generalized anxiety disorder) F41.1 Moderate persistent asthma without complication J45.40 Asthma complication type: uncomplicated Morbid obesity with BMI of 45.0-49.9, adult E66.01; Z68.42 Mass of left lower leg R22.42 JETT (obstructive sleep apnea) G47.33 Prediabetes R73.03 PCOS (polycystic ovarian syndrome) E28.2 Additional Codes FRANKLIN-7 Assessment Billing - FRANKLIN-7 Assessment Tool: FRANKLIN-7 Assessment 78279 ([id number]) Assessment & Plan Assessment & Plan (1) FRANKLIN (generalized anxiety disorder): Code(s): F41.1 - Generalized anxiety disorder Category: Medical Plan: . (2) Moderate persistent asthma: Code(s): J45.40 - Moderate persistent asthma, uncomplicated Category: Medical Qualifiers: Asthma complication type: uncomplicated Qualified Code(s): J45.40 - Moderate persistent asthma, uncomplicated Plan: . (3) Morbid obesity with BMI of 45.0-49.9, adult: Code(s): E66.01 - Morbid (severe) obesity due to excess calories; Z68.42 - Body mass index [BMI] 45.0-49.9, adult Category: Medical Plan: . (4) Mass of left lower leg: Code(s): R22.42 - Localized swelling, mass and lump, left lower limb Category: Medical Plan: . (5) JETT (obstructive sleep apnea): Code(s): G47.33 - Obstructive sleep apnea (adult) (pediatric) Category: Medical Plan: . (6) Prediabetes: Code(s): R73.03 - Prediabetes Category: Medical Plan: . (7) PCOS (polycystic ovarian syndrome): Code(s): E28.2 - Polycystic ovarian syndrome Category: Medical Plan: . Orders: Referrals Nurse Navigator Referral F41.1 - Generalized anxiety disorder Medications: New fluticasone furoate 50 mcg/actuation (Arnuity Ellipta) 1 inh inhalation ONCE 30 ea 3RF buspirone 5 mg PO BID 60 tabs 1RF
[2024-01-24 08:50] VITALS: BP 122/72; PULSE 111; RESP 14; O2SAT 97; BMI 46.9
[2024-01-24 09:33] VITALS: PULSE 91
== END 2024-01-24 09:34 | disposition home or self-care (01) ==
PROVIDERS: PCP Nurse Practitioner Family; Visit Provider Nurse Practitioner Family
DX: F41.1 Generalized anxiety disorder (principal); J45.40 Moderate persistent asthma, uncomplicated; E66.01 Morbid (severe) obesity due to excess calories; Z68.42 Body mass index [BMI] 45.0-49.9, adult; R22.42 Localized swelling, mass and lump, left lower limb; G47.33 Obstructive sleep apnea (adult) (pediatric); R73.03 Prediabetes; E28.2 Polycystic ovarian syndrome

== ENCOUNTER → 2024-01-24 08:44 | Outpatient (BNVA) | payer OTHER, SELFPAY | PROVIDERS: PCP Nurse Practitioner Family; Visit Provider Nurse Practitioner Family | DX: F41.1 Generalized anxiety disorder (principal); J45.40 Moderate persistent asthma, uncomplicated; E66.01 Morbid (severe) obesity due to excess calories; Z68.42 Body mass index [BMI] 45.0-49.9, adult; R22.42 Localized swelling, mass and lump, left lower limb; G47.33 Obstructive sleep apnea (adult) (pediatric); R73.03 Prediabetes; E28.2 Polycystic ovarian syndrome | CPT/HCPCS: 96127; 99212 ==

== ENCOUNTER → 2024-02-02 07:51 | Outpatient (REF) | payer OTHER, SELFPAY | LOC: HO.SL 07:51 | PROVIDERS: PCP Nurse Practitioner Family; Visit Provider Nurse Practitioner Family | DX: G47.33 Obstructive sleep apnea (adult) (pediatric) (principal) | CPT/HCPCS: 95806 ==

== ENCOUNTER → 2024-02-02 08:19 | Outpatient (BNV) | payer OTHER, SELFPAY | PROVIDERS: PCP Nurse Practitioner Family; Visit Provider Internal Medicine | DX: G47.33 Obstructive sleep apnea (adult) (pediatric) (principal) | CPT/HCPCS: 95806 ==

== ENCOUNTER 2024-02-18 14:59 | Outpatient (AMB) | payer OTHER, SELFPAY ==
--- NOTE | 2024-02-18 14:54 | MHC.PC.OV ---
Intake Visit Reasons: schedule mri Intake Note: Discuss getting MRI for back and shoulder pain left side. Allergies No Known Allergies Allergy (Verified 02/18/24 16:28) Medication List - Last Reconciled 02/18/24 by Becca Miller [facility]- albuterol sulfate 90 mcg/actuation 2 puffs inhalation Q6H PRN buspirone 5 mg PO BID fluticasone furoate 50 mcg/actuation (Arnuity Ellipta) 1 inh inhalation ONCE Tobacco use date assessed: 12/17/23 Dental Screening Dental Screen Date: 12/17/23 HPI HPI Comments History of Present Illness Details 29-year-old female with moderate persistent asthma, PCOS, morbid obesity, obstructive sleep apnea (home sleep study 02/08/24), generalized anxiety disorder, seasonal allergies, prediabetes, hidradenitis suppurativa, fatty liver, family hx thyroid CA Status post appendectomy Family hx: Sister thyroid cancer 2022 age 27, Mom with MS, MGM DM, PGF COPD 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 Reports that she was in her normal state of health until 1 week ago when she developed a weird finger twitching affecting only her index finger on her left hand. This continued for 1 week and then she developed a pinched nerve sensation in her neck and into her left shoulder. She reports that when she leans her head to the left such as when trying to hold the phone on her shoulder this causes a lot of pain. Turning her head to the left also causes pain. The pain radiates from the arm into the left shoulder. As soon as pain in back started, finger twitch stopped. Has not returned. Alleviating: keeping head neutral, Tylenol taking twice per day Initially she had disruption in her sleep but this is now improved. Denies any numbness or tingling. No loss of function. Normal strength. Denies any overt trauma. Buspirone is helping w/ anxiety. The voices in head will calm down. Met w/ [facility] endo for thyroid nodules; hx of thyroid ca. Working w/ same Endo who dx her Sister. Has FNBx scheduled 03/15/24 Discuss with her different treatment options which include: watch and wait PT Chiro imaging Pt would like to watch and wait. Advised to let me know if this cont, if that is the case, will pursue PT. Use home exercises, look on the internet for things that can help cervical spine. Talk to work and see if there are any ergonomic changes that they can help with. Cont APAP BID PRN, no more than 3 gm/24 hours. Continue buspirone Continue follow up endocrinology. Please ask for reports to be forwarded to me for review. Return to the office as scheduled, sooner as needed This note is constructed using voice recognition software. While every effort has been made to ensure accuracy in drupal web developer, still errors may have been included Sometimes, these errors may affect the content or meaning of the given sentence . Total time spent caring for the patient today was 22 minutes. This includes time spent before the visit reviewing the chart, time spent during the visit, and time spent after the visit on documentation [facility] Medical History (Updated 01/26/24 @ 08:06 by Becca Miller, ADJUNCT PHLEBOTOMY INSTRUCTOR-) Anxiety IBS (irritable bowel syndrome) Asthma Surgical History (Updated 12/17/23 @ 11:10 by Patricia Reeves CMA) Hx of appendectomy Family History (Updated 12/17/23 @ 11:09 by Patricia Reeves CMA) Father HTN (hypertension) Maternal Grandmother Diabetes Mother Cancer Other Thyroid cancer Social History (Updated 12/17/23 @ 11:10 by Patricia Reeves CMA) Housing: House Patient Tobacco Use Status: Never used Tobacco e-Cigarette/Vaping Use: Never Used Second Hand Smoke Exposure: No service: No Current occupational status: employed 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 Avtar Tanner, Doris Akins, Raza Lobato and colleagues, with an educational viktor from [employer]. Physical exam (Primary Care) Tobacco/Smoking Status: Tobacco use Status Tobacco use date assessed 12/17/23 02/18/24 14:56 Patient Tobacco Use Status Never used Tobacco 02/18/24 14:56 e-Cigarette/Vaping Use Never Used 02/18/24 14:56 Thrive Assessment: Date of Thrive Assessment Date Thrive assessed 12/17/23 02/18/24 14:56 Telehealth Telehealth Telehealth Platform: [facility] Location of provider rendering services: practice address Location of patient: address on file Patient Identification confirmed using: Name, : Yes Telehealth method: voice only Patient verbally consented to treatment: Yes Patient verbally consented to billing insurance company: Yes Patient informed of any privacy concerns related to visit: Yes Minutes spent on Phone/Video with Pt.: 11 Coding Level of Care Code Tele Est Pt Level 3 (29483) Complex EM visit Add On G2211 Diagnoses Multiple thyroid nodules E04.2 Family history of thyroid cancer Z80.8 Cervical pain (neck) M54.2 Pain radiating to left shoulder M25.512 FRANKLIN (generalized anxiety disorder) F41.1 Assessment & Plan Assessment & Plan (1) Multiple thyroid nodules: Comment: 01/10/24 CLINICAL INFORMATION: Family history of malignant neoplasm of other organs or systems. COMPARISON: None available. TECHNIQUE: Linear transducer grayscale and color Doppler examination with attention to the region of the thyroid. FINDINGS: SIZE: Measurements of the thyroid lobes and nodules are given in sagittal, anteroposterior and transverse dimensions respectively. Right Thyroid Lobe: 5.1 x 1.9 x 2.2 cm, volume 11 mL. Parenchyma: The gland echotexture is homogeneous. Thyroid vascularity is normal. Left Thyroid Lobe: 4.9 x 1.6 x 2.0 cm, volume 8 mL. Parenchyma: The gland echotexture is homogeneous. Thyroid vascularity is normal. Isthmus: 0.3 cm in maximum AP dimension. Estimated total number of nodules greater than or equal to 1 cm: 2. Furniture Removalist'S Assistant nodules are described as follows: 1. Location: Right mid. Size: 0.9 x 0.5 x 0.7 cm, volume 0.16 mL. Nodule characteristics: Composition: Solid (2). Echogenicity: Hypoechoic (2). Shape: Not taller than wide (0). Margins: Ill-defined (0). Echogenic Foci: None (0). ACR TI-RADS total points: 4 ACR TI-RADS category: 4 2. Location: Right inferior. Size: 1.1 x 1.2 x 1.0 cm, volume 0.8 mL. Nodule characteristics: Composition: Mixed cystic and solid (1). Echogenicity: Isoechoic (1). Shape: Not taller than wide (0). Margins: Ill-defined (0). Echogenic Foci: None (0). ACR TI-RADS total points: 5 ACR TI-RADS category: 4 3. Location: Right inferior. Size: 0.7 x 0.6 x 0.8 cm, volume 0.16 mL. Nodule characteristics: Composition: Solid/almost completely solid (2). Echogenicity: Isoechoic (1). Shape: Not taller than wide (0). Margins: Ill-defined (0). Echogenic Foci: None (0). ACR TI-RADS total points: 3 ACR TI-RADS category: 3 4. Location: Left inferior. Size: 1.3 x 0.7 x 1.1 cm, volume 0.5 mL. Nodule characteristics: Composition: Mixed cystic and solid (1). Echogenicity: Isoechoic (1). Shape: Not taller than wide (0). Margins: Ill-defined (0). Echogenic Foci: None (0). ACR TI-RADS total points: 2 ACR TI-RADS category: 2 5. Location: Left inferior. Size: 1.2 x 0.6 x 0.7 cm, volume 0.3 mL. Nodule characteristics: Composition: Solid/almost completely solid (2). Echogenicity: Isoechoic (1). Shape: Not taller than wide (0). Margins: Ill-defined (0). Echogenic Foci: None (0). ACR TI-RADS total points: 3 ACR TI-RADS category: 3 NODES: No lymphadenopathy is seen in the tissue surrounding the thyroid gland. US/US thyroid IMPRESSION: Right inferior pole 1.2 cm TI-RADS 4 nodule. Remaining nodules do not meet size criteria for follow-up. Code(s): E04.2 - Nontoxic multinodular goiter Category: Medical Plan: . (2) Family history of thyroid cancer: Comment: sister Code(s): Z80.8 - Family history of malignant neoplasm of other organs or systems Category: Medical Plan: . (3) Cervical pain (neck): Code(s): M54.2 - Cervicalgia Plan: . (4) Pain radiating to left shoulder: Code(s): M25.512 - Pain in left shoulder Plan: . (5) FRANKLIN (generalized anxiety disorder): Code(s): F41.1 - Generalized anxiety disorder Category: Medical Plan: . Plan .
== END 2024-02-18 16:45 | disposition home or self-care (01) ==
LOC: HO.HMCFM 14:59
PROVIDERS: PCP Nurse Practitioner Family; Visit Provider Nurse Practitioner Family
DX: E04.2 Nontoxic multinodular goiter (principal); Z80.8 Family history of malignant neoplasm of other organs or systems; M54.2 Cervicalgia; M25.512 Pain in left shoulder; F41.1 Generalized anxiety disorder

== ENCOUNTER → 2024-02-18 14:59 | Outpatient (BNVA) | payer OTHER, SELFPAY | PROVIDERS: PCP Nurse Practitioner Family; Visit Provider Nurse Practitioner Family ==

== ENCOUNTER 2024-03-06 15:25 | Outpatient (AMB) | payer OTHER, SELFPAY ==
--- NOTE | 2024-03-06 15:27 | A.OFFPC_ITS ---
Vital Signs 03/06/24 15:30 Height 5 ft 2 in Weight 257 lb 6 oz BMI 47.1 BP 126/72 Blood Pressure Location Lt brachial Position Sitting Respiration 13 Pulse 94 Pulse Source Pulse Oximeter Pulse Oximetry (%) 96 Oxygen Delivery Method Room Air Intake Visit Reasons: 6wk 30 min fu FRANKLIN, start med/imaging Intake Note: follow up on med and sleep study Linux Server Engineer Required: No Allergies No Known Allergies Allergy (Verified 03/06/24 15:39) Medication List - Last Reconciled 03/06/24 by Becca Miller, [facility] albuterol sulfate 90 mcg/actuation 2 puffs inhalation Q6H PRN buspirone 5 mg PO BID fluticasone furoate 50 mcg/actuation (Arnuity Ellipta) 1 inh inhalation ONCE Tobacco use date assessed: 12/17/23 Dental Screening Dental Screen Date: 12/17/23 HPI HPI Comments History of Present Illness Details 29-year-old female with moderate persist ent asthma, PCOS, morbid obesity, obstructive sleep apnea (home sleep study 02/08/24), generalized anxiety disorder, seasonal allergies, prediabetes, hidradenitis suppurativa, fatty liver, thyroid nodules Status post appendectomy Family hx: Sister thyroid cancer 2022 age 27, Mom with MS, MGM DM, PGF COPD 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 b.i.d. to help with her generalized anxiety disorder. She is taking as directed. She was also started counseling. Counseling has been wonderful for her. Seeing her counselor weekly. The BuSpar has helped to decrease her anxiety however she continues to have severe anxiety with bouts of panic. She was also suffering some depression. Her symptoms are worse around the time of her period which continues to be very irregular. She is following up with dry wall installer next month. In regards to her asthma, she was started on Arnuity. She reports that she was taking as directed however she started to develop dizzy spells. She stopped the Arnuity and is no longer having any dizzy spells. She reports that her asthma is well controlled. Has not needed her albuterol inhaler. But does have it on hand should she need it. An ultrasound was done of her neck which confirmed thyroid nodules. Family history of thyroid cancer in her sister diagnosed in her 20s. Patient has lots of anxiety regarding this. She will undergo a biopsy in March at [facility] endocrinology. She had a home sleep study done given a history of sleep apnea. She has never been on CPAP machine. Results reviewed with her today. 02/08/24 home sleep study BAEZA 5.1, 0AI 1 .3, CARI, 0, lowest desaturation 63% Diagnosis of obstructive sleep apnea, AHI 5, most obstructive events were in the supine position with supine AHI 7.6, moderate amount of snoring about 20% of the time mild nocturnal hypoxemia with average O2 sat 93% and O2 sat below 88% for 5 minutes highest heart rate was over 200 Recommend aggressive weight reduction and position therapy, could consider CPAP She is willing to use CPAP machine. Finally I followed up on her neck pain and twitching of her hands and fingers reported at the last visit. This is no longer occurring. Exam Awake alert oriented no acute distress Acanthosis nigricans Regular rate and rhythm Lung sounds clear to auscultation bilat Tearful when talking about mood otherwise appropriate Plan Start Paxil 10 mg p.o. daily. Okay to continue buspirone however use only as needed. Continue care with counselor. Plan will be to titrate the Paxil to effect to help control anxiety and depression symptoms. Okay to continue off the Arnuity as asthma is well controlled off of it. Continue with p.r.n. Varsha. Please let me know if you are using this more than twice per week as we can we will need to consider starting you back on a daily maintenance inhaler. Continue care with [facility] endocrinology as well as dry wall installer. Please make sure these notes are CC to me. Please keep me updated via the portal. Start CPAP machine, orders will be sent to [facility]. Return to the office in 6 weeks to follow up on the above, sooner as needed. This note is constructed using voice recognition software. While every effort has been made to ensure accuracy in director inbound sales, still errors may have been included Sometimes, these errors may affect the content or meaning of the given sentence . Total time spent caring for the patient today was 45 minutes. This includes time spent before the visit reviewing the chart, time spent during the visit, and time spent after the visit on documentation [facility] Medical History (Updated 03/06/24 @ 16:08 by Becca Miller, [facility]) Anxiety IBS (irritable bowel syndrome) Asthma Surgical History (Updated 12/17/23 @ 11:10 by Patricia Reeves CMA) Hx of appendectomy Family History (Updated 12/17/23 @ 11:09 by Patricia Reeves CMA) Father HTN (hypertension) Maternal Grandmother Diabetes Mother Cancer Other Thyroid cancer Social History (Updated 12/17/23 @ 11:10 by Patricia Reeves CMA) Housing: House Patient Tobacco Use Status: Never used Tobacco e-Cigarette/Vaping Use: Never Used Second Hand Smoke Exposure: No service: No Current occupational status: employed 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 1. Little interest or pleasure in doing things: several days 2. Feeling down, depressed, or hopeless: more than half the days 3. Trouble falling or staying asleep, or sleeping too much: more than half the days 4. Feeling tired or having little energy: several days 5. Poor appetite or overeating: not at all 6. Feeling bad about yourself - or that you are a failure or have let yourself or your family down: several days 7. Trouble concentrating on things, such as reading the newspaper or watching television: several days 8. Moving or speaking so slowly that other people could have noticed. Or the opposite - being so fidgety or restless that you have been moving around a lot more than usual: not at all 9. Thoughts that you would be better off or of hurting yourself in some way: not at all Total score: 8 95881 - PHQ-9 Billing: Yes Source: Developed by Drs. Avtar Tanner, Doris Akins, Raza Lobato and colleagues, with an educational viktor from [employer]. Thrive Questionnaire Date Thrive assessed: 03/06/24 I am a: Patient What is your living situation today?: I have a steady place to live Within the past 12 months, did the food you bought not last and you didn't have the money to get more?: Never true Within the past 12 months, did you worry whether your food would run out before you got money to buy more?: Never true Do you have trouble paying for medicines?: No Do you have trouble getting transportation to medical appointments?: No Do you have trouble paying your heating and electricity bill?: No Do you have trouble taking care of your child, family member or friend?: No Do you have trouble with day-to-day activities such as bathing, preparing meals, shopping, managing finances, etc.?: No Are you currently unemployed and looking for a job?: No Are you interested in more education?: No Please select the resources that you would like help with: None Currently or been in a relationship where the following occur: No concerns reported THRIVE Score: 0 AUDIT C Alcohol Use Questionnaire (AUDIT-C) 1. How often do you have a drink containing alcohol?: Monthly or less Total Score: 1 FRANKLIN-7 AMB Questionnaire FRANKLIN-7 Date FRANKLIN - 7 assessed: 03/06/24 Feeling nervous, anxious, or on edge: 1 = Several days Not being able to stop or control worryin = Several days Worrying too much about different things: 1 = Several days Trouble relaxin = More than half the days Being so restless that it is hard to sit still: 1 = Several days Becoming easily annoyed or irritable: 1 = Several days Feeling afraid as if something awful might happen: 1 = Several days Total FRANKLIN-7 score (0-4 normal; 5-9 mild; 10-14 moderate; 15-21 severe): 8 Source: Developed by Drs. Avtar Tanner, Doris Akins, Raza Lobato and colleagues, with an educational viktor from [employer]. FRANKLIN-7 Assessment Billing FRANKLIN-7 Assessment Tool: FRANKLIN-7 Assessment 19021 Physical exam (Primary Care) Vital Signs: Last Vital Signs Pulse 94 03/06/24 15:30 Resp 13 03/06/24 15:30 BP 126/72 03/06/24 15:30 Pulse Ox 96 03/06/24 15:30 Oxygen Delivery Method Room Air 03/06/24 15:30 BMI result Body Mass Index 47.1 Tobacco/Smoking Status: Tobacco use Status Tobacco use date assessed 12/17/23 03/06/24 15:31 Patient Tobacco Use Status Never used Tobacco 03/06/24 15:31 e-Cigarette/Vaping Use Never Used 03/06/24 15:31 PHQ-9: PHQ-9 Score PHQ-9: Total score 8 03/06/24 15:31 Thrive Assessment: Date of Thrive Assessment Date Thrive assessed 03/06/24 03/06/24 15:31 Currently or been in a relationship where the following occur: No concerns reported Coding Level of Care Code Est Pt Level 5 (36174) Complex EM visit Add On G2211 Diagnoses FRANKLIN (generalized anxiety disorder) F41.1 Family history of thyroid cancer Z80.8 Moderate persistent asthma without complication J45.40 Asthma complication type: uncomplicated Multiple thyroid nodules E04.2 JETT (obstructive sleep apnea) G47.33 Mild episode of recurrent major depressive disorder F33.0 Major depression episode severity: mild Additional Codes FRANKLIN-7 Assessment Billing - FRANKLIN-7 Assessment Tool: FRANKLIN-7 Assessment 86103 ([id number]) PHQ-9 - 20119 - PHQ-9 Billing: Yes ([id number]) Assessment & Plan Assessment & Plan (1) FRANKLIN (generalized anxiety disorder): Code(s): F41.1 - Generalized anxiety disorder Category: Medical (2) Family history of thyroid cancer: Comment: sister Code(s): Z80.8 - Family history of malignant neoplasm of other organs or systems Category: Medical (3) Moderate persistent asthma: Code(s): J45.40 - Moderate persistent asthma, uncomplicated Category: Medical Qualifiers: Asthma complication type: uncomplicated Qualified Code(s): J45.40 - Moderate persistent asthma, uncomplicated (4) Multiple thyroid nodules: Comment: 01/10/24 CLINICAL INFORMATION: Family history of malignant neoplasm of other organs or systems. COMPARISON: None available. TECHNIQUE: Linear transducer grayscale and color Doppler examination with attention to the region of the thyroid. FINDINGS: SIZE: Measurements of the thyroid lobes and nodules are given in sagittal, anteroposterior and transverse dimensions respectively. Right Thyroid Lobe: 5.1 x 1.9 x 2.2 cm, volume 11 mL. Parenchyma: The gland echotexture is homogeneous. Thyroid vascularity is normal. Left Thyroid Lobe: 4.9 x 1.6 x 2.0 cm, volume 8 mL. Parenchyma: The gland echotexture is homogeneous. Thyroid vascularity is normal. Isthmus: 0.3 cm in maximum AP dimension. Estimated total number of nodules greater than or equal to 1 cm: 2. Buckler And Lacer nodules are described as follows: 1. Location: Right mid. Size: 0.9 x 0.5 x 0.7 cm, volume 0.16 mL. Nodule characteristics: Composition: Solid (2). Echogenicity: Hypoechoic (2). Shape: Not taller than wide (0). Margins: Ill-defined (0). Echogenic Foci: None (0). ACR TI-RADS total points: 4 ACR TI-RADS category: 4 2. Location: Right inferior. Size: 1.1 x 1.2 x 1.0 cm, volume 0.8 mL. Nodule characteristics: Composition: Mixed cystic and solid (1). Echogenicity: Isoechoic (1). Shape: Not taller than wide (0). Margins: Ill-defined (0). Echogenic Foci: None (0). ACR TI-RADS total points: 5 ACR TI-RADS category: 4 3. Location: Right inferior. Size: 0.7 x 0.6 x 0.8 cm, volume 0.16 mL. Nodule characteristics: Composition: Solid/almost completely solid (2). Echogenicity: Isoechoic (1). Shape: Not taller than wide (0). Margins: Ill-defined (0). Echogenic Foci: None (0). ACR TI-RADS total points: 3 ACR TI-RADS category: 3 4. Location: Left inferior. Size: 1.3 x 0.7 x 1.1 cm, volume 0.5 mL. Nodule characteristics: Composition: Mixed cystic and solid (1). Echogenicity: Isoechoic (1). Shape: Not taller than wide (0). Margins: Ill-defined (0). Echogenic Foci: None (0). ACR TI-RADS total points: 2 ACR TI-RADS category: 2 5. Location: Left inferior. Size: 1.2 x 0.6 x 0.7 cm, volume 0.3 mL. Nodule characteristics: Composition: Solid/almost completely solid (2). Echogenicity: Isoechoic (1). Shape: Not taller than wide (0). Margins: Ill-defined (0). Echogenic Foci: None (0). ACR TI-RADS total points: 3 ACR TI-RADS category: 3 NODES: No lymphadenopathy is seen in the tissue surrounding the thyroid gland. US/US thyroid IMPRESSION: Right inferior pole 1.2 cm TI-RADS 4 nodule. Remaining nodules do not meet size criteria for follow-up. Code(s): E04.2 - Nontoxic multinodular goiter Category: Medical (5) JETT (obstructive sleep apnea): Comment: 02/08/24 home sleep study BEAZA 5.1, 0AI 1.3, CARI, 0, lowest desaturation 63% Diagnosis of obstructive sleep apnea, AHI 5, most obstructive events were in the supine position with supine AHI 7.6, moderate amount of snoring about 20% of the time mild nocturnal hypoxemia with average O2 sat 93% and O2 sat below 88% for 5 minutes highest heart rate was over 200 Recommend aggressive weight reduction and position therapy, could consider CPAP Code(s): G47.33 - Obstructive sleep apnea (adult) (pediatric) Category: Medical (6) MDD (major depressive disorder), recurrent episode: Code(s): F33.9 - Major depressive disorder, recurrent, unspecified Category: Medical Qualifiers: Major depression episode severity: mild Qualified Code(s): F33.0 - Major depressive disorder, recurrent, mild Plan . Medications: New paroxetine HCl 10 mg PO DAILY 30 tabs 1RF Changed From buspirone 5 mg PO BID 60 tabs 1RF To buspirone 5 mg PO BID PRN 60 tabs 1RF anxiety Patient Instructions[facility] ? [address], [address] [facility] [address]
[2024-03-06 15:30] VITALS: BP 126/72; PULSE 94; RESP 13; O2SAT 96; BMI 47.1
== END 2024-03-06 16:02 | disposition home or self-care (01) ==
PROVIDERS: PCP Nurse Practitioner Family; Visit Provider Nurse Practitioner Family
DX: G47.33 Obstructive sleep apnea (adult) (pediatric) (principal); F41.1 Generalized anxiety disorder; F33.0 Major depressive disorder, recurrent, mild; Z80.8 Family history of malignant neoplasm of other organs or systems; J45.40 Moderate persistent asthma, uncomplicated; E04.2 Nontoxic multinodular goiter

== ENCOUNTER → 2024-03-06 15:25 | Outpatient (BNVA) | payer OTHER, SELFPAY | PROVIDERS: PCP Nurse Practitioner Family; Visit Provider Nurse Practitioner Family | DX: F41.1 Generalized anxiety disorder (principal); J45.40 Moderate persistent asthma, uncomplicated; E04.2 Nontoxic multinodular goiter; G47.33 Obstructive sleep apnea (adult) (pediatric); F33.0 Major depressive disorder, recurrent, mild; Z80.8 Family history of malignant neoplasm of other organs or systems | CPT/HCPCS: 96127; 99212 ==

== ENCOUNTER 2024-04-20 13:06 | Outpatient (AMB) | payer OTHER, SELFPAY ==
--- NOTE | 2024-04-20 13:07 | A.OFFPC_ITS ---
Vital Signs 04/20/24 13:10 Height 5 ft 2 in Weight 253 lb BMI 46.3 BP 132/72 Blood Pressure Location Rt brachial Position Sitting Respiration 13 Pulse 69 Pulse Source Pulse Oximeter Pulse Oximetry (%) 97 Oxygen Delivery Method Room Air Intake Visit Reasons: 6 weeks 30 min fu on paxil start Intake Note: 6 week follow up Mailroom Manager Required: No Allergies No Known Allergies Allergy (Verified 04/20/24 13:27) Medication List - Last Reconciled 04/20/24 by JEANA CaseyP- albuterol sulfate 90 mcg/actuation 2 puffs inhalation Q6H PRN buspirone 5 mg PO BID PRN fluticasone furoate 50 mcg/actuation (Arnuity Ellipta) 1 inh inhalation ONCE paroxetine HCl 10 mg PO DAILY Tobacco use date assessed: 12/17/23 Dental Screening Dental Screen Date: 12/17/23 HPI HPI Comments History of Present Illness Details 29-year-old female with moderate persist ent asthma, PCOS, morbid obesity, obstructive sleep apnea (home sleep study 02/08/24), generalized anxiety disorder, seasonal allergies, prediabetes, hidradenitis suppurativa, fatty liver, thyroid nodules, JETT on CPAP Status post appendectomy Family hx: Sister thyroid cancer 2022 age 27, Mom with MS, MGM DM, PGF COPD 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 She was previously started on Paxil 10 mg daily for anxiety management and has been taking it in the morning without experiencing increased tiredness. Her mood has improved, and she reports feeling less anxious. No longer taking buspar. She was recently cleared for managing her thyroid nodules with annual ultrasounds, the last biopsy being negative. For her sleep apnea, she began using a CPAP machine two weeks ago and is adjusting to the device. While initially disrupting her sleep, it has started to show improvements in nocturnal symptoms. She finds some discomfort with the face mask but has not required adjustments. Regarding her menorrhagia, she describes irregular menstrual cycles with intermittent heavy bleeding and spotting, intercourse restarts bleed, expressed distress over its impact on her quality of life. Therefore, hormonal management options were discussed. The patient also reports nausea upon waking if she delays eating, suspecting a possible gastric ulcer, though no abdominal pain was noted. 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 - Plans to participate in exercise with her cousin three times a week. Physical Exam Awake alert oriented no acute distress Acanthosis nigricans Nodular thryoid, nontender Regular rate and rhythm Lung sounds clear to auscultation bilat Mood and affect appopriate. Smiling and laughing this visit, appears brighter. Results - FNA biopsy of thyroid nodules: Ivett garza (performed in March). - CPAP usage noted. Plan - Refill Paxil 90-day supply and discont inue Buspirone as it is not being used. - Order annual ultrasound of thyroid in January. - Issue Medroxyprogesterone to manage me nstrual irregularities with follow-up needed for efficacy. - Conduct H. pylori stool antigen test t o assess nausea and potential gastric ulcer. - Arrange follow-up in 6-8 weeks with ood work to reassess overall status and check CPAP adherence. Patient was informed and verbally consented to the use of an ambient scribe for clinic note documentation during this visit. Discussion Notes I discussed maintaining Paxil for anxiety management as it is effective without adverse effects, and the discontinuation of Buspirone due to intolerable side effects. We reviewed the importance of annual ultrasounds to monitor thyroid nodules. For sleep apnea management, I emphasized adherence to CPAP therapy, noting it is monitored for insurance purposes, and comfort adjustments can be made. We discussed the choice of Medroxyprogesterone to manage the patient's menorrhagia, explaining dosing regimens and the need for reporting outcomes for future treatment adjustments. I suggested testing for H. pylori due to the symptoms suggestive of a possible ulcer. All risks, benefits, and alternative therapies were thoroughly discussed, and the patient consented to these plans. The need for future follow-up was confirmed, along with parameters for contac ting the clinic sooner if symptoms worsen. Patient Instructions - Continue taking Paxil 10 mg daily in t he morning. - Stop taking Buspirone and monitor for any changes in symptoms. - Undergo annual thyroid ultrasound in O ctober; an order will be placed for scheduling. - Begin Medroxyprogesterone as directed and report progress by day 10 via the portal. - Collect stool sample for H. pylori ondina t as instructed after blood work. - Use CPAP regularly and report any diff iculties to the company for adjustments. - Follow up in 6-8 weeks for reassessmen t, fu on labs, cPAP recert - Maintain a regular diet to help preven t nausea, and eat within an hour of waking up. - Contact the clinic if symptoms worsen or with any concerns. This note is constructed using voice recognition software. While every effort has been made to ensure accuracy in passenger interline clerk, still errors may have been included Sometimes, these errors may affect the content or meaning of the given sentence . Total time spent caring for the patient today was 30 minutes. This includes time spent before the visit reviewing the chart, time spent during the visit, and time spent after the visit on documentation [facility] Medical History (Updated 04/20/24 @ 13:54 by Becca Miller [facility]) Anxiety IBS (irritable bowel syndrome) Asthma Surgical History (Updated 12/17/23 @ 11:10 by Patricia Reeves CMA) Hx of appendectomy Family History (Updated 12/17/23 @ 11:09 by Patricia Reeves CMA) Father HTN (hypertension) Maternal Grandmother Diabetes Mother Cancer Other Thyroid cancer Social History (Updated 12/17/23 @ 11:10 by Patricia Reeves CMA) Housing: House Patient Tobacco Use Status: Never used Tobacco e-Cigarette/Vaping Use: Never Used Second Hand Smoke Exposure: No service: No Current occupational status: employed 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 1. Little interest or pleasure in doing things: not at all 2. Feeling down, depressed, or hopeless: not at all 3. Trouble falling or staying asleep, or sleeping too much: not at all 4. Feeling tired or having little energy: not at all 5. Poor appetite or overeating: not at all 6. Feeling bad about yourself - or that you are a failure or have let yourself or your family down: not at all 7. Trouble concentrating on things, such as reading the newspaper or watching television: not at all 8. Moving or speaking so slowly that other people could have noticed. Or the opposite - being so fidgety or restless that you have been moving around a lot more than usual: not at all 9. Thoughts that you would be better off or of hurting yourself in some way : not at all Total score: 0 Depression Screening Interpretation: Negative Depression Screening Done: Yes 13025 - PHQ-9 Billing: Yes Source: Developed by Drs. Avtar Tanner, Doris Akins, Raza Lobato and colleagues, with an educational viktor from [email or web address]. Thrive Questionnaire Date Thrive assessed: 04/20/24 I am a: Patient What is your living situation today?: I have a steady place to live Within the past 12 months, did the food you bought not last and you didn't have the money to get more?: Never true Within the past 12 months, did you worry whether your food would run out before you got money to buy more?: Never true Do you have trouble paying for medicines?: No Do you have trouble getting transportation to medical appointments?: No Do you have trouble paying your heating and electricity bill?: No Do you have trouble taking care of your child, family member or friend?: No Do you have trouble with day-to-day activities such as bathing, preparing meals, shopping, managing finances, etc.?: No Are you currently unemployed and looking for a job?: No Are you interested in more education?: No Please select the resources that you would like help with: None Currently or been in a relationship where the following occur: No concerns reported THRIVE Score: 0 AUDIT C Alcohol Use Questionnaire (AUDIT-C) 1. How often do you have a drink containing alcohol?: Monthly or less 2. How many drinks containing alcohol do you have on a typical day when you are drinking?: 3 or 4 3. How often do you have six or more drinks on one occasion?: Less than monthly Total Score: 3 Score Reviewed/Action Taken: Yes FRANKLIN-7 AMB Questionnaire FRANKLIN-7 Date FARNKLIN - 7 assessed: 04/20/24 Feeling nervous, anxious, or on edge: 1 = Several days Not being able to stop or control worryin = Several days Worrying too much about different things: 1 = Several days Trouble relaxin = Several days Being so restless that it is hard to sit still: 1 = Several days Becoming easily annoyed or irritable: 1 = Several days Feeling afraid as if something awful might happen: 1 = Several days Total FRANKLIN-7 score (0-4 normal; 5-9 mild; 10-14 moderate; 15-21 severe): 7 Source: Developed by Drs. Avtar Tanner, Doris Akins, Raza Lobato and colleagues, with an educational viktor from [email or web address]. FRANKLIN-7 Assessment Billing FRANKLIN-7 Assessment Tool: FRANKLIN-7 Assessment 55476 Physical exam (Primary Care) Vital Signs: Last Vital Signs Pulse 69 04/20/24 13:10 Resp 13 04/20/24 13:10 BP 132/72 04/20/24 13:10 Pulse Ox 97 04/20/24 13:10 Oxygen Delivery Method Room Air 04/20/24 13:10 BMI result Body Mass Index 46.3 BMI Assessment/Plan discussion: High BMI High, discussed plan: lifestyle Tobacco/Smoking Status: Tobacco use Status Tobacco use date assessed 12/17/23 04/20/24 13:09 Patient Tobacco Use Status Never used Tobacco 04/20/24 13:09 e-Cigarette/Vaping Use Never Used 04/20/24 13:09 Depression Screening Interpretation: Negative Thrive Assessment: Date of Thrive Assessment Date Thrive assessed 04/20/24 04/20/24 13:09 Currently or been in a relationship where the following occur: No concerns reported Coding Level of Care Code Est Pt Level 4 (84626) Complex EM visit Add On G2211 Diagnoses FRANKLIN (generalized anxiety disorder) F41.1 Mild episode of recurrent major depressive disorder F33.0 Major depression episode severity: mild Morbid obesity with BMI of 45.0-49.9, adult E66.01; Z68.42 JETT (obstructive sleep apnea) G47.33 Multiple thyroid nodules E04.2 Family history of thyroid cancer Z80.8 Moderate persistent asthma without complication J45.40 Asthma complication type: uncomplicated PCOS (polycystic ovarian syndrome) E28.2 Nausea alone R11.0 Additional Codes FRANKLIN-7 Assessment Billing - FRANKLIN-7 Assessment Tool: FRANKLIN-7 Assessment 80783 ([id number]) PHQ-9 - 53976 - PHQ-9 Billing: Yes ([id number]) Assessment & Plan Assessment & Plan (1) FRANKLIN (generalized anxiety disorder): Code(s): F41.1 - Generalized anxiety disorder Category: Medical (2) MDD (major depressive disorder), recurrent episode: Code(s): F33.9 - Major depressive disorder, recurrent, unspecified Category: Medical Qualifiers: Major depression episode severity: mild Qualified Code(s): F33.0 - Major depressive disorder, recurrent, mild (3) Morbid obesity with BMI of 45.0-49.9, adult: Code(s): E66.01 - Morbid (severe) obesity due to excess calories; Z68.42 - Body mass index [BMI] 45.0-49.9, adult Category: Medical (4) JETT (obstructive sleep apnea): Comment: 02/08/24 home sleep study BAEZA 5.1, 0AI 1.3, CARI, 0, lowest desaturation 63% Diagnosis of obstructive sleep apnea, AHI 5, most obstructive events were in the supine position with supine AHI 7.6, moderate amount of snoring about 20% of the time mild nocturnal hypoxemia with average O2 sat 93% and O2 sat below 88% for 5 minutes highest heart rate was over 200 Recommend aggressive weight reduction and position therapy, could consider CPAP On CPAP [facility] home care Code(s): G47.33 - Obstructive sleep apnea (adult) (pediatric) Category: Medical (5) Multiple thyroid nodules: Comment: *FN bx negative 03/2024. Cleared by [facility] for PCP managed annual US, due in January. 01/10/24 CLINICAL INFORMATION: Family history of malignant neoplasm of other organs or systems. COMPARISON: None available. TECHNIQUE: Linear transducer grayscale and color Doppler examination with attention to the region of the thyroid. FINDINGS: SIZE: Measurements of the thyroid lobes and nodules are given in sagittal, anteroposterior and transverse dimensions respectively. Right Thyroid Lobe: 5.1 x 1.9 x 2.2 cm, volume 11 mL. Parenchyma: The gland echotexture is homogeneous. Thyroid vascularity is normal. Left Thyroid Lobe: 4.9 x 1.6 x 2.0 cm, volume 8 mL. Parenchyma: The gland echotexture is homogeneous. Thyroid vascularity is normal. Isthmus: 0.3 cm in maximum AP dimension. Estimated total number of nodules greater than or equal to 1 cm: 2. Engraver Wood nodules are described as follows: 1. Location: Right mid. Size: 0.9 x 0.5 x 0.7 cm, volume 0.16 mL. Nodule characteristics: Composition: Solid (2). Echogenicity: Hypoechoic (2). Shape: Not taller than wide (0). Margins: Ill-defined (0). Echogenic Foci: None (0). ACR TI-RADS total points: 4 ACR TI-RADS category: 4 2. Location: Right inferior. Size: 1.1 x 1.2 x 1.0 cm, volume 0.8 mL. Nodule characteristics: Composition: Mixed cystic and solid (1). Echogenicity: Isoechoic (1). Shape: Not taller than wide (0). Margins: Ill-defined (0). Echogenic Foci: None (0). ACR TI-RADS total points: 5 ACR TI-RADS category: 4 3. Location: Right inferior. Size: 0.7 x 0.6 x 0.8 cm, volume 0.16 mL. Nodule characteristics: Composition: Solid/almost completely solid (2). Echogenicity: Isoechoic (1). Shape: Not taller than wide (0). Margins: Ill-defined (0). Echogenic Foci: None (0). ACR TI-RADS total points: 3 ACR TI-RADS category: 3 4. Location: Left inferior. Size: 1.3 x 0.7 x 1.1 cm, volume 0.5 mL. Nodule characteristics: Composition: Mixed cystic and solid (1). Echogenicity: Isoechoic (1). Shape: Not taller than wide (0). Margins: Ill-defined (0). Echogenic Foci: None (0). ACR TI-RADS total points: 2 ACR TI-RADS category: 2 5. Location: Left inferior. Size: 1.2 x 0.6 x 0.7 cm, volume 0.3 mL. Nodule characteristics: Composition: Solid/almost completely solid (2). Echogenicity: Isoechoic (1). Shape: Not taller than wide (0). Margins: Ill-defined (0). Echogenic Foci: None (0). ACR TI-RADS total points: 3 ACR TI-RADS category: 3 NODES: No lymphadenopathy is seen in the tissue surrounding the thyroid gland. US/US thyroid IMPRESSION: Right inferior pole 1.2 cm TI-RADS 4 nodule. Remaining nodules do not meet size criteria for follow-up. Code(s): E04.2 - Nontoxic multinodular goiter Category: Medical (6) Family history of thyroid cancer: Comment: sister Code(s): Z80.8 - Family history of malignant neoplasm of other organs or systems Category: Medical (7) Moderate persistent asthma: Comment: well controlled w prn LINDA only Code(s): J45.40 - Moderate persistent asthma, uncomplicated Category: Medical Qualifiers: Asthma complication type: uncomplicated Qualified Code(s): J45.40 - Mo derate persistent asthma, uncomplicated (8) PCOS (polycystic ovarian syndrome): Code(s): E28.2 - Polycystic ovarian syndrome Category: Medical (9) Nausea alone: Code(s): R11.0 - Nausea Category: Medical Plan . Orders: Orders US thyroid 01/10/25 E04.2 - Nontoxic multinodular goiter, Z80.8 - Family history of malignant neoplasm of other organs or systems H pylori Ag Stool Today R11.0 - Nausea Medications: New medroxyprogesterone If bleeding occurs before the end of the 14-day cycle, you can double the dose and restart the cycle 2.5 mg PO DIRECTED 30 tabs 0RF Refilled paroxetine HCl 10 mg PO DAILY 90 tabs 1RF
[2024-04-20 13:10] VITALS: BP 132/72; PULSE 69; RESP 13; O2SAT 97; BMI 46.3
== END 2024-04-20 13:46 | disposition home or self-care (01) ==
PROVIDERS: PCP Nurse Practitioner Family; Visit Provider Nurse Practitioner Family
DX: F41.1 Generalized anxiety disorder (principal); F33.0 Major depressive disorder, recurrent, mild; E66.01 Morbid (severe) obesity due to excess calories; Z68.42 Body mass index [BMI] 45.0-49.9, adult; G47.33 Obstructive sleep apnea (adult) (pediatric); E04.2 Nontoxic multinodular goiter; Z80.8 Family history of malignant neoplasm of other organs or systems; J45.40 Moderate persistent asthma, uncomplicated; E28.2 Polycystic ovarian syndrome; R11.0 Nausea

== ENCOUNTER → 2024-04-20 13:06 | Outpatient (BNVA) | payer OTHER, SELFPAY | PROVIDERS: PCP Nurse Practitioner Family; Visit Provider Nurse Practitioner Family | DX: F41.1 Generalized anxiety disorder (principal); F33.0 Major depressive disorder, recurrent, mild; E66.01 Morbid (severe) obesity due to excess calories; Z68.42 Body mass index [BMI] 45.0-49.9, adult; G47.33 Obstructive sleep apnea (adult) (pediatric); E04.2 Nontoxic multinodular goiter; J45.40 Moderate persistent asthma, uncomplicated; E28.2 Polycystic ovarian syndrome; R11.0 Nausea; Z80.8 Family history of malignant neoplasm of other organs or systems | CPT/HCPCS: 96127; 99212 ==

== ENCOUNTER 2024-06-03 07:34 | Outpatient (REF) | payer OTHER, SELFPAY ==
--- OUTSIDE RECORDS SUMMARY | 2024-06-03 07:36 | XMS_ITS | Encounter Summary ---
Author Organization [facility] Address [address] [place] [address] Care Team Providers Care Parish Nurse Name Role Phone Community, Pcp Unavailable Unavailable Tanja Powell MD Primary Care Prov ider Reason for Visit * Reason Onset Date Comments Sore Throat 08/03/2022 With cough Encounter Details Date Type Department Care Team Description 08/03/2022 Pt. Non Urgent Medical Question Adult Medicine [address] [id number] Tanja Powell MD [address] [place] [address] [id number] Social History Tobacco Use Types Packs/Day Years Used Date Smoking Tobacco: Never Smokeless Tobacco: Never Alcohol Use Standard Drinks/Week Comments Yes 0 (1 standard drink = 0.6 oz pur e alcohol) rare Sex Assigned at Date Recorded Not on file Job Start Date Occupation Industry Not on file Not on file Not on file documented as of this encounter Miscellaneous Notes * Telephone Encounter - Rosalind Bobo M.A. - 08/03/2022 1:08 PM EDTFrom: Jane Marcos To: India Gordon Sent: 08/03/2022 11:17 AM EDT Subject: Appointment Hello! I was wondering if I can get in somewhere tomorrow or today. I have a very soar throat and renny cough. My asthma is also acting up, and a runny nose. I did take a covid test this morning and it was negative. Might be possible strep. Please let me know. Thank you documented in this encounter Plan of Treatment Not on file documented as of this encounter Visit Diagnoses Not on filedocumented in this encounter Care Teams Parish Nurse Relationship Specialty Start Date End Date Tanja Powell MD [address] [place] [id number] PCP - General Internal Medicine 11/10/21 [facility], Pcp Internal Medicine 08/06/16 documented as of this encounter
--- OUTSIDE RECORDS SUMMARY | 2024-06-03 07:36 | XMS_ITS | Encounter Summary ---
Author Organization [facility] Address [address] [place] [address] Care Team Providers Care Power Driven Brush Maker Name Role Phone Tanya Gamboa MD Primary Care Provider [facility], Pcp Unavailable Unavailable Tanja Powell MD Primary Care Prov ider Encounter Details Date Type Department Care Team Description 03/21/2017 Pt. Non Urgent Medic al Question OBGYN - [facility] [address] [place] [address] Melchor Garcia CNM Social History Tobacco Use Types Packs/Day Years Used Date Smoking Tobacco: Never Alcohol Use Standard Drinks/Week Comments No 0 (1 standard drink = 0.6 oz pur e alcohol) Sex Assigned at Date Recorded Not on file Job Start Date Occupation Industry Not on file Not on file Not on file documented as of this encounter Progress Notes * Lisette Tapia - 03/22/2017 11:13 AM ESTFrom: Jane Marcos To: Melchor Garcia CNM Sent: 03/21/2017 9:11 AM EST Subject: Question Hello so I have an appointment on and I am currently on my period which I should not be until next week so I still want to come in and talk to you is this ok? I have a couple questions to ask you and I don't know why I'm bleeding now when I should still have a week until I start. documented in this encounter Plan of Treatment Not on file documented as of this encounter Visit Diagnoses Not on filedocumented in this encounter Care Teams Power Driven Brush Maker Relationship Specialty Start Date End Date Tanya Gamboa MD PCP - General Internal Medicine 08/06/16 11/09/21 Tanja Powell MD [address] [place] [id number] PCP - General Internal Medicine 11/10/21 [facility] Internal Medicine 08/06/16 documented as of this encounter
--- OUTSIDE RECORDS SUMMARY | 2024-06-03 07:36 | XMS_ITS | Encounter Summary ---
Author Organization [facility] Address [address] [place] [address] Care Team Providers Care Stencil Machine Operator Name Role Phone Nica Marie MD Primary Care Provider [facility], Pcp Unavailable Unavailable Tanja Powell MD Primary Care Prov ider Reason for Visit * Reason Onset Date Comments Orders Call 07/14/2021 Encounter Details Date Type Department Care Team Description 07/14/2021 Telephone Adult Medicine [address] [address] Nica Marie MD Orders Call Social History Tobacco Use Types Packs/Day Years Used Date Smoking Tobacco: Never Smokeless Tobacco: Never Alcohol Use Standard Drinks/Week Comments Yes 0 (1 standard drink = 0.6 oz pur e alcohol) rare Sex Assigned at Date Recorded Not on file Job Start Date Occupation Industry Not on file Not on file Not on file COVID-19 Exposure Response Date Recorded In the last 10 days, have yo u been in contact with someone who was confirmed or suspected to have Coronavirus/COVID-19? No / Unsure 07/01/2021 3:10 PM EDT documented as of this encounter Miscellaneous Notes * Telephone Encounter - Angelika Byrne - 07/14/2021 1:52 PM EDT L/m for pt Make appt ? Reason for evaluation: elevated bp * Telephone Encounter - Angelika Byrne - 07/14/2021 1:52 PM EDT Patient Name: JANE JEFF([id number]) Sex: Female : 1995 ?PCP: NICA MARIE ?Center: [facility] ?? Level of Service:64216 ? PREVENTIVE [id number] Types of orders made on 07/01/2021: Medications, PATHOLOGY, Procedures Order Date:07/01/2021 Ordering User:JOHN DING CNM [[id number]] Encounter Provider:John Ding CNM [[id number]] Authorizing Provider: John Ding CNM [[id number]] Supervising Provider:TRACIE MATSON [[id number]] Type of Supervision:Indirect Supervision Department:[facility][90] Order Specific Information Order: REFER TO PCP [CPT(R): 17059] ??Order #: [id number]: 1 FUTURE ?Priority: Routine ?Future Order Information ?Expires on:07/02/2022 ?Expected by:07/01/2021 ?Comment:I request an evaluation in Adult Medicine ? Reason for evaluation: elevated bp ? Priority: the patient should be seen within 3-4 weeks ?Associated Diagnoses ?R03.0 Elevated blood pressure reading Disposition: Return in 1 year (on 07/01/2022) for ANNUAL EXAM 1 YEAR. ?Priority: Routine ??Class: Normal ?Future Or brynn Information ?Expires on:07/02/2022 ?Expected by:07/01/2021 ?Comment:I request an evaluation in Adult Medicine ? Reason for evaluation: elevated bp ? Priority: the patient should be seen within 3-4 weeks ?Associated Diagnoses ?R03.0 Elevated blood pressure reading Electronic Signature documented in this encounter Plan of Treatment Not on file documented as of this encounter Visit Diagnoses Not on filedocumented in this encounter Care Teams Stencil Machine Operator Relationship Specialty Start Date End Date Nica Marie MD PCP - General Internal Medicine 08/06/16 11/09/21 Tanja Powell MD [address] [place] [id number] PCP - General Internal Medicine 11/10/21 [facility] Internal Medicine 08/06/16 documented as of this encounter
--- OUTSIDE RECORDS SUMMARY | 2024-06-03 07:36 | XMS_ITS | Encounter Summary ---
Author Organization [facility] Address [address] [place] [address] Care Team Providers Care Passenger Service Representative Name Role Phone Tanya Gamboa MD Primary Care Provider Wilber Ojeda, Pcp Unavailable Unavailable Tanja Powell MD Primary Care Prov ider Encounter Details Date Type Department Care Team Description 11/07/2021 Hospital Medical Records [address] [place] [id number] Ramonita Herrera DO Social History Tobacco Use Types Packs/Day Years Used Date Smoking Tobacco: Never Smokeless Tobacco: Never Alcohol Use Standard Drinks/Week Comments Yes 0 (1 standard drink = 0.6 oz pur e alcohol) rare Sex Assigned at Date Recorded Not on file Job Start Date Occupation Industry Not on file Not on file Not on file documented as of this encounter Plan of Treatment Not on file documented as of this encounter Visit Diagnoses Not on filedocumented in this encounter Care Teams Passenger Service Representative Relationship Specialty Start Date End Date Tanya Gamboa MD PCP - General Internal Medicine 08/06/16 11/09/21 Tanja Powell MD [address] [place] [address] [phone] PCP - General Internal Medicine 11/10/21 [facility], Pcp Internal Medicine 08/06/16 documented as of this encounter
--- OUTSIDE RECORDS SUMMARY | 2024-06-03 07:36 | XMS_ITS | Encounter Summary ---
Author Organization [facility] Address [address] [place] [address] Care Team Providers Care Electromechanical Assembly Technician Name Role Phone Tanya Gamboa MD Primary Care Provider [facility], Pcp Unavailable Unavailable Tanja Powell MD Primary Care Prov ider Reason for Visit * Reason Onset Date Comments Ear Pain 04/22/2021 Encounter Details Date Type Department Care Team Description 04/22/2021 Pt. Non Urgent Medical Question Adult Medicine [address] [address] Maria Victoria Schmidt PA-C [address] [place] [id number] Social History Tobacco Use Types Packs/Day Years [...] encounter Miscellaneous Notes * Telephone Encounter - Katlyn Amaro L.P.N. - 05/05/2021 3:40 PM EST 05/05/21 Pt. Has not called back as of this date or scheduled an apt.. Closing encounter.Katlyn Amaro L.P.N. * Telephone Encounter - Rosalind Bobo M.A. - 04/22/2021 10:31 AM ESTFrom: Jane Marcos To: Florencia Schmidt Sent: 04/22/2021 10:30 AM EST Subject: Need appointment Jeronimolo I have been having ear pain since about April 08. I think I have a possible ear infection and would like to get it looked at. Thank you documented in this encounter Plan of Treatment Not on file documented as of this encounter Visit Diagnoses Not on filedocumented in this encounter Care Teams Electromechanical Assembly Technician Relationship Specialty Start Date End Date Tanya Gamboa MD PCP - General Internal Medicine 08/06/16 11/09/21 Tanja Powell MD [address] [place] [id number] PCP - General Internal Medicine 11/10/21 [facility], [facility] Internal Medicine 08/06/16 documented as of this encounter
--- OUTSIDE RECORDS SUMMARY | 2024-06-03 07:36 | XMS_ITS | Encounter Summary ---
Author Organization [facility] Address [address] [place] [address] Care Team Providers Care Concessions Manager Name Role Phone Tanya Gamboa MD Primary Care Provider [facility], Pcp Unavailable Unavailable Tanja Powell MD Primary Care Prov ider Encounter Details Date Type Department Care Team Description 02/23/2017 Pt. Non Urgent Medic al Question OBGYN - [place] [address] [place] [id number] Melchor Garcia CNM Social History Tobacco Use [...] encounter Progress Notes * Lisette Tapia - 02/24/2017 2:09 PM ESTFrom: Jane Marcos To: Melchor Garcia CNM Sent: 02/23/2017 8:40 PM EST Subject: control question Hello so I'm taking my control and I'm starting to bleed before I get to the white pills. Is that normal or no? It's not like a lot but I can tell that it's there. And it's not when I pee just when I wipe. I just want to know if I am supposed to bleed before I get to the white pills or not? Thank you documented in this encounter Plan of Treatment Not on file documented as of this encounter Visit Diagnoses Not on filedocumented in this encounter Care Teams Concessions Manager Relationship Specialty Start Date End Date Tanya Gamboa MD PCP - General Internal Medicine 08/06/16 11/09/21 Tanja Powell MD [address] [place] [id number] PCP - General Internal Medicine 11/10/21 [facility], [facility] Internal Medicine 08/06/16 documented as of this encounter
--- OUTSIDE RECORDS SUMMARY | 2024-06-03 07:36 | XMS_ITS | Encounter Summary ---
Author Organization [facility] Address [address] [place] [address] Care Team Providers Care Personnel Analyst Name Role Phone Tanya Gamboa MD Primary Care Provider [facility], Pcp Unavailable Unavailable Tanja Powell MD Primary Care Prov ider Encounter Details Date Type Department Care Team Description 03/08/2017 Pt. Non Urgent Medic al Question OBGYN - [place] [address] [place] [address] Melchor Garcia CNM Social History Tobacco Use [...] encounter Progress Notes * Lisette Tapia - 03/09/2017 7:51 AM ESTFrom: Jane Marcos To: Melchor Garcia CNM Sent: 03/08/2017 5:17 PM EST Subject: Bleeding Hello I have a few concerns. I have been having a discharge fluid since and I don't know why. And today it started with some blood also and I haven't missed a control pill or anything and I'm getting concerned. Please let me know if I should make an appointment to make it sure everything is ok. documented in this encounter Plan of Treatment Not on file documented as of this encounter Visit Diagnoses Not on filedocumented in this encounter Care Teams Personnel Analyst Relationship Specialty Start Date End Date Tanya Gamboa MD PCP - General Internal Medicine 08/06/16 11/09/21 Tanja Powell MD [address] [place] [phone] PCP - General Internal Medicine 11/10/21 [facility] Internal Medicine 08/06/16 documented as of this encounter
--- OUTSIDE RECORDS SUMMARY | 2024-06-03 07:36 | XMS_ITS | Encounter Summary ---
Author Organization [facility] Address [address] [place] [address] Care Team Providers Care Store Operations Specialist Name Role Phone Community, Pcp Unavailable Unavailable Tanja Powell MD Primary Care Prov ider Encounter Details Date Type Department Care Team Description 04/24/2022 Pt. Non Urgent Medical Question Adult Medicine [address] [id number] Tanja Powell MD [address] [place] [address] [phone] Social History Tobacco Use Types Packs/Day Years [...] suspected to have Coronavirus/COVID-19? No / Unsure 04/24/2022 11:08 AM EST documented as of this encounter Plan of Treatment Not on file documented as of this encounter Visit Diagnoses Not on filedocumented in this encounter Care Teams Store Operations Specialist Relationship Specialty Start Date End Date Tanja Powell MD [address] [place] [address] [phone] PCP - General Internal Medicine 11/10/21 [facility], Pcp Internal Medicine 08/06/16 documented as of this encounter
--- OUTSIDE RECORDS SUMMARY | 2024-06-03 07:36 | XMS_ITS | Data Portability ---
Author Organization [facility] Address [address] [place] [address] Assessment No assessment recorded. Plan of Treatment Reminders Order Date Submit Date Provider Last Modified By Organization Details Last Modified Time Details Appointments None recorded. Lab rapid strep group A, throat 2021 [facility], [address] [place] [address], [id number], 15:22:14 streptococc us group A, culture, throat 2021 [facility], [address] [place] [address], [place], [address], 12:06:25 Referral None recorded. Procedures None recorded. Surgeries None recorded. Imaging None recorded. Medication Orders amoxicillin 500 mg capsule 2021 [id number], [address] [facility], [address], [place], [address], 15:22:15 Patient TargetsNo targets recorded. Patient Instructions Encounter Date Encounter Id Patient Instructions Last Modified By Organization Details Last Modified Time 03/17/2022 [id number] sore throat: car e instructions [email or web address] Not available 03/17/2022 15:22:14 Based on your Presentation, Exam, and Lab Testing you are being diagnosed with Pharyngitis. Your Rapid Strep Test was Negative. Most likely your sore throat is being caused by a virus, post nasal drip, or silent acid reflux. I am going to send a Throat Culture to the lab for you to make sure you don't have a different form of strep in your throat. This will take about 72 hours for that result to return. We will contact you if it positive - if for some reason you don't get a copy of your results or hear from us - please contact our office. I am going to prescribe you and antibiotic to cover this infection. Please be sure to complete the full course of this antibiotic to prevent antibiotic resistance. It is also important to complete this antibiotic because this infection is what causes Scarlet Fever/Rheumatic Heart Disease. Antibiotics will typically take 4-5 days to start to work with symptom improvement. The following are my other recommendations to help with symptoms and is important for this diagnosis: 1. Do not share any food or drinks - strep is passed through direct saliva exchange (NOT IN THE AIR) 2. Change your toothbrush in 3-4 days so that you don't re-infect yourself after you complete the antibiotic. 3. Take Ibuprofen or Tylenol if you do not have any allergies to these medications. If you take a blood thinner you should not take NSAIDS like Ibuprofen. These medication will help with the inflammation in your respiratory tract which should help the cough. (I would alternate between Tylenol 650 mg and your Ibuprofen 600 mg every 4 hours) 4. Do not take any Cold Medications that have a Decongestant in it - this will dry out your throat and make the sore throat worse. 5. Drinking Hot Tea with honey can help coat and soothe your throat. 6. You would be considered contagious for the next 24-48 hours, or until fever resolves. I would be seen again if you develop any of the following symptoms. 1. Fever > 101.0 2. Stiff neck - where you can't turn your neck 3. Trouble swallowing your saliva - drooling 4. Swelling of a lymph node in your throat that is painful to touch 5. Difficulty breathing 6. Severe Headache Thank you for using [facility] today, please feel free to contact our office if you have any questions or concerns. [email or web address] Not available 03/17/2022 15:20:48 Reason for Referral None Reported. Results Created Date Observation Date Name Description Value Unit Range Abnormal Flag Note LastModifiedBy Organization Detail LastModifiedTime 03/17/20 22 03/20/2022 BETA STREP GP A CULTU RE beta strep gp A culture Negati ve Refer ence Range : Negat carly Not Available [facility] ([facility]) [address] [facility], [place], [address], 03/20/2022 14:06:37 03/17/20 22 03/17/2022 rapid strep group A, throa t Unknown Analyte negati ve Not Available [address] [place] [address], [phone], 03/17/2022 14:56:30 03/17/20 22 03/17/2022 rapid strep group A, throa t Unknown Analyte Normal = Negati ve Not Available [address] [place] [address], [phone], 03/17/2022 14:56:30 Result Notes None recorded. Problems Name Problem SNOMED Code Status Onset Date Resolution Date Notes Provider Name and Address Organization Details Recorded Time Asthma 449804476 Active 022 VISHAL Carrasquillo - [facility] 03/17/2022 14:57:44 Problem Notes None recorded. Procedures Surgical History Date Name Laterality Status Provider Name and Address Organization Details Recorded Time Appendectomy completed DENISE Bassett [facility] 03/17/2022 14:58:23 Imaging Results None recorded. Procedure Notes None recorded. Medical Equipment None Reported. Allergies No known drug allergies Medications Name Sig Start Date Stop Date Status Note LastModified by Organization Details LastModified Time amoxicillin 500 mg capsule Take 1 capsule 3 times a day by oral route for 10 days. 022 active Not Available Not Available Not Avai lable albuterol sulfate active Not Available Not Available Not Available Vitals Date Recorded Body height Body mass index (BMI) Body weight Oxygen saturation Oxygen saturation in Arterial blood by Pulse oximetry Heart rate Respiratory rate Body temperature Systolic blood pressure Diastolic blood pressure Provider Name and Address Organization Details Last Updated DateTime 157.48 cm 45.7 kg/m2 373021. 09 g 98 % 98 % 100 /min 18 /min 98.8 [degF] 118 mm[Hg] 77 mm[Hg] DENISE RODGERS - [facility] 14:59:17 Social History Question Answer Notes LastModified by Organizat ion Details LastModified Time Tobacco Smoking Status Never Smoker VISHAL Carrasquillo - [facility] 03/17/2022 14:58:04 What Is Your Level Of Alcohol Consumption? Occasional [email or web address] Information not available 03/17/2022 Do You Use Any Illicit Or Recreational Drugs? No [email or web address] Information not available 03/17/2022 Have You Recently Traveled Abroad? No Information not available 03/17/2022 Do You Or Have You Ever Used Any Other Forms Of Tobacco Or Nicotine? No [email or web address] Information not available 03/17/2022 Sex: Unknown Functional Status None recorded. Mental Status None recorded. Family History Relationship Description Onset Age of this Age Resolved Age Notes LastModified by Organization Details LastModified Time Father No current problems or disability [email or web address] Not available 03/17 14:57:49 Mother No current problems or disability [email or web address] Not available 03/17 14:57:49 Medical History No medical history recorded. Gynecological HistoryNo gynecological history recorded. Obstetrics History GPAL:G 0 P 0 0 0 0 Past Encounters Encounter ID Performer Location Encounter Start Date Encounter Closed Date Diagnosis/Indication Diagnosis SNOMED-CT Code Diagnosis ICD10 Code Diagnosis Note [id number] [address] [place] [address] 12/19/2016 11:43:47 12/19/2016 12:58:15 [id number] [place] [address] 11/30/2016 08:59:36 11/30/2016 10:04:56 [id number] VISHAL HIGGINS [address] [address] [place] [address] 03/17/2022 13:44:09 03/17/2022 15:23:30 Acute pharyngitis 353771138 J02.9 Health Concerns Section Related Observation LastModified by Organization Detai ls LastModified Time None Recorded Concern Status LastModified by Organization Details LastModified Time None Recorded Advance Directives Directive None Recorded Payers Encounter Date Sequence Insurance Name Policy Number Policy Cyr Covered Member ID Cyr Member ID Guarantor Name 11/30/2016 1 [facility] (O) [id number] Jane Marcos [id number] Jane Marcos 12/19/2016 1 [facility] (O) [id number] Jane Marcos [id number] Jane Marcos 03/17/2022 1 [place] [facility] Jane Marcos [id number] Jane Marcos Notes Date Note Type Note Provider Name and Address Organization Details Recorded Time 2 text/html Sore throatReported bypatient.Source of patient informationInformation obtained from patient; Patient arrived at Urgent Care ambulatory Location:throat Severity:mild Onset/Timin days Associated Symptoms:sore throat;weakness;fever;hoars eness;nausea VISHAL HIGGINS [address] [place], [address], [place] - [facility] 03/18/2022 08:19:34 OBGyn Episode No OBEpisode recorded.
--- OUTSIDE RECORDS SUMMARY | 2024-06-03 07:36 | XMS_ITS | Encounter Summary ---
Author Organization [facility] Address [address] [place] [address] Care Team Providers Care Banquet Supervisor Name Role Phone Tanya Gamboa MD Primary Care Provider Wilber Ojeda, Pcp Unavailable Unavailable Tanja Powell MD Primary Care Prov ider Encounter Details Date Type Department Care Team Description 11/07/2021 Hospital Medical Records [address] [place] [id number] Ramonita Herrera DO Social History Tobacco Use [...] on filedocumented in this encounter Care Teams Banquet Supervisor Relationship Specialty Start Date End Date Tanya Gamboa MD PCP - General Internal Medicine 08/06/16 11/09/21 Tanja Powell MD [address] [place] [address] [phone] PCP - General Internal Medicine 11/10/21 [facility], Pcp Internal Medicine 08/06/16 documented as of this encounter
[2024-06-03 11:29] LABS: Hematocrit 39.3 % (37.0-47.0); Hemoglobin 12.2 g/dl (12.0-16.0); Mean Corpuscular Hemoglobin 27.2 pg (27.0-33.0); Mean Corpuscular Volume 87.5 fL (80.0-98.0); Mean Platelet Volume 9.5 fL (9.4-12.3); Platelet Count 413 X10*3/uL (160-400); Red Blood Count 4.49 X10*6/uL (4.20-5.50); White Blood Count 9.4 X10*3/uL (4.8-10.8)
[2024-06-03 11:40] LABS: Estimated Average Glucose 111 mg/dL; Hemoglobin A1C 118.4048 umol/L; Hemoglobin A1c % 5.5 % (<6.0)
[2024-06-03 12:02] LABS: Creatinine Urine 143.29 mg/dL; Microalbum/Creatinine Ratio Ur 11.1 ug/mg cr (<30)
[2024-06-03 12:02] LABS: Alanine Aminotransferase 23 U/L (0-31); Albumin Level 3.7 g/dL (3.5-5.0); Alkaline Phosphatase 67 U/L (39-117); Anion Gap 13 (12-20); Aspartate Amino Transferase 24 U/L (5-31); Bilirubin Total 0.3 mg/dL (0.0-1.0); Blood Urea Nitrogen 11 mg/dL (9-16); Calcium 8.7 mg/dL (8.4-10.2); Carbon Dioxide 24 mmol/L (22-29); Chloride 107 mmol/L (96-108); Cholesterol 150 mg/dL (<200); Estimated Glomerular Filt Rate > 60; Glucose Fasting 112 mg/dL (60-99); HDL Cholesterol 46 mg/dL (>40); LDL Cholesterol Calculated 90 mg/dL (<100); Sodium 140 mmol/L (135-145); TSH reflex Free T4 1.36 uIU/mL (0.32-4.0); Total Protein 7.6 g/dL (6.5-8.0); Triglycerides 71 mg/dL (<150)
[2024-06-03 12:12] LABS: Folate 7.1 ng/mL (> or = 4.0); Vitamin B12 410 pg/mL (200-900)
[2024-06-08 05:19] LABS: VITAMIN D (1,25 OH) D3 49 pg/mL; Vit D (1,25-Dihydroxy) Total 49 pg/mL (18-72); Vitamin D (1,25 OH) D2 <8 pg/mL
== END 2024-06-03 07:35 | disposition home or self-care (01) ==
LOC: HO.HMGCLDS 07:34
PROVIDERS: PCP Nurse Practitioner Family; Visit Provider Nurse Practitioner Family
DX: Z00.00 Encounter for general adult medical examination without abnormal findings (principal); R73.03 Prediabetes; E28.2 Polycystic ovarian syndrome
CPT/HCPCS: 36415; 80053; 80061; 82043; 82570; 82607; 82652; 82746; 83036; 84443; 85027

== ENCOUNTER 2024-06-15 12:39 | Outpatient (AMB) | payer OTHER, SELFPAY ==
--- NOTE | 2024-06-15 12:40 | MHC.PC.OV ---
Vital Signs 06/15/24 12:45 Height 5 ft 2 in Weight 255 lb 2 oz BMI 46.7 BP 118/68 Blood Pressure Location Rt brachial Position Sitting Respiration 12 Pulse 84 Pulse Source Pulse Oximeter Temp 97.2 F Temp Source Oral Pulse Oximetry (%) 96 Oxygen Delivery Method Room Air Intake Visit Reasons: routine complex fu,labs 1 week before, CPAP recert Intake Note: routine follow up and review labs Laminating Machine Operator Helper Required: No Allergies No Known Allergies Allergy (Verified 06/15/24 13:07) Medication List - Last Reconciled 06/15/24 by Becca Miller, SIGNAL APPRENTICE- albuterol sulfate 90 mcg/actuation 2 puffs inhalation Q6H PRN drospirenone-ethinyl estradiol 3-0.03 mg 1 tab PO DAILY fluticasone furoate 50 mcg/actuation (Arnuity Ellipta) 1 inh inhalation ONCE medroxyprogesterone 2.5 mg PO DIRECTED paroxetine HCl 10 mg PO DAILY Tobacco use date assessed: 06/15/24 Dental Screening Dental Screen Date: 06/15/24 Did you have a dental visit in the last 12 months?: Yes Did you have a dental problem in the last 6 months where you did not have access to dental care?: No Was dental information given to patient?: Patient has dentist HPI HPI Comments History of Present Illness Details 29-year-old female with moderate persistent asthma, PCOS, morbid obesity, obstructive sleep apnea (home sleep study 02/08/24), generalized anxiety disorder, seasonal allergies, prediabetes, hidradenitis suppurativa, fatty liver, thyroid nodules, JETT on CPAP Status post appendectomy Family hx: Sister thyroid cancer 2022 age 27, Mom with MS, MGM DM, PGF COPD 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 [employer] Health maintenance Tdap 07/09/2016 Pulmonary function test 01/07/2022 Pap smear 02/14/2018 normal Declined flu Specialists Gasateria Attendant next appt 06/2024 Dermatology - pending somewhere that takes insurance Optho wears glasses, last eye exam 2023 at [facility] at [facility] History of Present Illness - The patient is a 29-year-old female presenting with a follow-up for chronic conditions - Diagnosed with sleep apnea, currently managed with a CPAP machine with noted improvement in sleep patterns but no substantial increase in daytime energy. CPAP use reviewed. Using 6 nights per week with great compliance. - Anxiety is controlled with paroxetine. Displays a good response with no overt anxiety symptoms reported. In counseling. - Polycystic Ovary Syndrome (PCOS) management included control initiation to regularize menstrual cycle, with a follow-up in three months. FFd by MILL OPERATOR at [facility] fatty liver, prediabetes and BMI > 46 is going to start cycling at [facility] well controlled. Derm consult still pending MILL OPERATOR told her she has fungal rash in groin and under breasts. Use OTC antifungal, has not started yet Physical Exam Awake alert oriented no acute distress Acanthosis nigricans Nodular thryoid, nontender Regular rate and rhythm Lung sounds clear to auscultation bilat Abd soft, nontender Under bilat breasts cystic areas ? HS Mood and affect appopriate. Results 05/2024 labs WNL, a1c 5.5% Fasting glucose 112 Discussion Notes During the visit, we revisited the patient's management of chronic conditions including sleep apnea, anxiety, and PCOS. For sleep apnea, compliance with CPAP use is commendable, although energy levels remain suboptimal. We reviewed the effectiveness of paroxetine for anxiety, finding no indications for change. For PCOS, fatty liver, prediabetes and obesity, I introduced metformin as a potential aid for weight loss, alongside existing lifestyle measures. We discussed the importance of adhering to the correct administration to minimize gastrointestinal side effects and the intended metabolic benefits. We emphasized the need for continued follow-up regarding the effectiveness of the current regimen on menstrual cycle regulation and weight management. I acknowledged the patient's proactive steps towards personal health improvement through physical activities and monitoring of dietary intake. We also discussed options for dermatology follow-up given the recent healthcare provider changes necessitated by insurance adjustments. use OTc antifungal. Assessment and Plan 1. Sleep Apnea: The patient remains compliant with CPAP therapy, resulting in improved sleep continuity. We will adhere to the current management, monitoring as needed. 2. Anxiety Disorder: Continues with 10 mg paroxetine, which is effectively controlling symptoms. No changes are required at present. 3. Polycystic Ovary Syndrome (PCOS): Managing with oral contraceptives, we will additionally start metformin at 500 mg for weight assistance, with evaluation scheduled in three months. Patient Instructions - Continue consistent CPAP use except when unable to like on Saturdays. - Maintain daily paroxetine, report any return of anxiety symptoms. - Start metformin 500 mg with dinner daily, ensure sufficient meal intake to prevent gastrointestinal discomfort. - submit stool for h pylori brandee - Attend cycling classes and other physical activities as planned. - Schedule follow-up with mobile security architect in three months and update on progress regarding weight and cycle regulation. - Coordinate dermatology care with insurance-compliant providers. - RTO 3 months to fu on wt loss/pcos/mood sooner prn Consent Patient provided informed consent for initiation of metformin therapy. Discussed potential benefits including weight management and improved insulin sensitivity related to PCOS. I reviewed the administration protocol emphasizing the need to take with meals to avoid common side effects such as gastrointestinal upset. Patient expressed understanding and agreed with the proposed management plan. Patient was informed and verbally consented to the use of an ambient scribe for clinic note documentation during this visit. Total time spent caring for the patient today was 40 minutes. This includes time spent before the visit reviewing the chart, time spent during the visit, and time spent after the visit on documentation, reviewing laboratory results, diagnostic imaging, medications, performing a medically necessary evaluation, counseling on diagnoses, care coordination, ordering appropriate tests, ordering appropriate medications, review of tests performed by other providers, reporting test results with the patient, communication with other healthcare providers. [facility] Medical History (Updated 04/20/24 @ 13:54 by [facility] Anxiety Asthma IBS (irritable bowel syndrome) Surgical History (Updated 12/17/23 @ 11:10 by Patricia Reeves CMA) Hx of appendectomy Family History (Updated 12/17/23 @ 11:09 by Patricia Reeves CMA) Father HTN (hypertension) Maternal Grandmother Diabetes Mother Cancer Other Thyroid cancer Social History (Updated 12/17/23 @ 11:10 by Patricia Reeves CMA) Housing: House Patient Tobacco Use Status: Never used Tobacco e-Cigarette/Vaping Use: Never Used Second Hand Smoke Exposure: No service: No Current occupational status: employed 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 1. Little interest or pleasure in doing things: not at all 2. Feeling down, depressed, or hopeless: not at all 3. Trouble falling or staying asleep, or sleeping too much: not at all 4. Feeling tired or having little energy: not at all 5. Poor appetite or overeating: not at all 6. Feeling bad about yourself - or that you are a failure or have let yourself or your family down: not at all 7. Trouble concentrating on things, such as reading the newspaper or watching television: not at all 8. Moving or speaking so slowly that other people could have noticed. Or the opposite - being so fidgety or restless that you have been moving around a lot more than usual: not at all 9. Thoughts that you would be better off or of hurting yourself in some way: not at all Total score: 0 Depression Screening Interpretation: Negative Depression Screening Done: Yes 35123 - PHQ-9 Billing: Yes Source: Developed by Drs. Avtar Tanner, Doris Akins, Raza Lobato and colleagues, with an educational viktor from [employer]. Thrive Questionnaire Date Thrive assessed: 06/15/24 I am a: Patient What is your living situation today?: I have a steady place to live Within the past 12 months, did the food you bought not last and you didn't have the money to get more?: Never true Within the past 12 months, did you worry whether your food would run out before you got money to buy more?: Never true Do you have trouble paying for medicines?: No Do you have trouble getting transportation to medical appointments?: No Do you have trouble paying your heating and electricity bill?: No Do you have trouble taking care of your child, family member or friend?: No Do you have trouble with day-to-day activities such as bathing, preparing meals, shopping, managing finances, etc.?: No Are you currently unemployed and looking for a job?: No Are you interested in more education?: No Please select the resources that you would like help with: None Currently or been in a relationship where the following occur: No concerns reported THRIVE Score: 0 AUDIT C Alcohol Use Questionnaire (AUDIT-C) 1. How often do you have a drink containing alcohol?: Monthly or less 2. How many drinks containing alcohol do you have on a typical day when you are drinking?: 1 or 2 3. How often do you have six or more drinks on one occasion?: Never Total Score: 1 Score Reviewed/Action Taken: Yes FRANKLIN-7 AMB Questionnaire FRANKLIN-7 Date FRANKLIN - 7 assessed: 06/15/24 Feeling nervous, anxious, or on edge: 0 = Not at all Not being able to stop or control worryin = Not at all Worrying too much about different things: 0 = Not at all Trouble relaxin = Not at all Being so restless that it is hard to sit still: 0 = Not at all Becoming easily annoyed or irritable: 0 = Not at all Feeling afraid as if something awful might happen: 0 = Not at all Total FRANKLIN-7 score (0-4 normal; 5-9 mild; 10-14 moderate; 15-21 severe): 0 Source: Developed by Drs. Avtar Tanner, Doris Akins, Raza Lobato and colleagues, with an educational viktor from [employer]. FRANKLIN-7 Assessment Billing FRANKLIN-7 Assessment Tool: FRANKLIN-7 Assessment 64467 Physical exam (Primary Care) Vital Signs: Last Vital Signs Temp 97.2 F 06/15/24 12:45 Pulse 84 06/15/24 12:45 Resp 12 06/15/24 12:45 BP 118/68 06/15/24 12:45 Pulse Ox 96 06/15/24 12:45 Oxygen Delivery Method Room Air 06/15/24 12:45 BMI result Body Mass Index 46.7 BMI Assessment/Plan discussion: High BMI High, discussed plan: lifestyle Tobacco/Smoking Status: Tobacco use Status Tobacco use date assessed 06/15/24 06/15/24 12:46 Patient Tobacco Use Status Never used Tobacco 06/15/24 12:41 e-Cigarette/Vaping Use Never Used 06/15/24 12:41 PHQ-9: PHQ-9 Score PHQ-9: Total score 0 06/15/24 13:15 Depression Screening Interpretation: Negative Thrive Assessment: Date of Thrive Assessment Date Thrive assessed 06/15/24 06/15/24 12:41 Currently or been in a relationship where the following occur: No concerns reported Coding Level of Care Code Est Pt Level 5 (07002) Complex EM visit Add On G2211 Diagnoses JETT (obstructive sleep apnea) G47.33 FRANKLIN (generalized anxiety disorder) F41.1 Mild episode of recurrent major depressive disorder F33.0 Major depression episode severity: mild Morbid obesity with BMI of 45.0-49.9, adult E66.01; Z68.42 PCOS (polycystic ovarian syndrome) E28.2 Prediabetes R73.03 Hepatic steatosis K76.0 Hidradenitis suppurativa L73.2 Moderate persistent asthma without complication J45.40 Asthma complication type: uncomplicated Additional Codes FRANKLIN-7 Assessment Billing - FRANKLIN-7 Assessment Tool: FRANKLIN-7 Assessment 36325 ([id number]) PHQ-9 - 63445 - PHQ-9 Billing: Yes ([id number]) Assessment & Plan Assessment & Plan (1) JETT (obstructive sleep apnea): Comment: 02/08/24 home sleep study BAEZA 5.1, 0AI 1.3, CARI, 0, lowest desaturation 63% Diagnosis of obstructive sleep apnea, AHI 5, most obstructive events were in the supine position with supine AHI 7.6, moderate amount of snoring about 20% of the time mild nocturnal hypoxemia with average O2 sat 93% and O2 sat below 88% for 5 minutes highest heart rate was over 200 Recommend aggressive weight reduction and position therapy, could consider CPAP On CPAP [facility] Code(s): G47.33 - Obstructive sleep apnea (adult) (pediatric) Category: Medical (2) FRANKLIN (generalized anxiety disorder): Code(s): F41.1 - Generalized anxiety disorder Category: Medical (3) MDD (major depressive disorder), recurrent episode: Code(s): F33.9 - Major depressive disorder, recurrent, unspecified Category: Medical Qualifiers: Major depression episode severity: mild Qualified Code(s): F33.0 - Major depressive disorder, recurrent, mild (4) Morbid obesity with BMI of 45.0-49.9, adult: Code(s): E66.01 - Morbid (severe) obesity due to excess calories; Z68.42 - Body mass index [BMI] 45.0-49.9, adult Category: Medical (5) PCOS (polycystic ovarian syndrome): Code(s): E28.2 - Polycystic ovarian syndrome Category: Medical (6) Prediabetes: Code(s): R73.03 - Prediabetes Category: Medical (7) Hepatic steatosis: Code(s): K76.0 - Fatty (change of) liver, not elsewhere classified Category: Medical (8) Hidradenitis suppurativa: Code(s): L73.2 - Hidradenitis suppurativa Category: Medical (9) Moderate persistent asthma: Comment: well controlled w prn LINDA only Code(s): J45.40 - Moderate persistent asthma, uncomplicated Category: Medical Qualifiers: Asthma complication type: uncomplicated Qualified Code(s): J45.40 - Moderate persistent asthma, uncomplicated Plan . Medications: New metformin ER 500 mg PO DAILY 90 tabs 0RF
[2024-06-15 12:45] VITALS: BP 118/68; PULSE 84; RESP 12; TEMP 36.2; O2SAT 96; BMI 46.7
--- OUTSIDE RECORDS SUMMARY | 2024-06-15 15:10 | XMS_ITS | Data Portability ---
Author Organization [facility], [address] Address [address] [place] [address] Assessment No assessment recorded. Plan of Treatment Reminders Order Date Submit Date Provider Last Modified By Organization Details Last Modified Time Details Appointments None recorded. Lab rapid strep group A, throat 2021 [email or web address] [facility], [address] [place] [address], [id number], 15:22:14 streptococc us group A, culture, throat 2021 [place] [facility], [address] [place] [address], [place], [address], 12:06:25 Referral None recorded. Procedures None recorded. Surgeries None recorded. Imaging None recorded. Medication Orders amoxicillin 500 mg capsule 2021 [facility], [address], [address], [place], [address], 15:22:15 Patient TargetsNo targets recorded. Patient Instructions Encounter Date Encounter Id Patient Instructions Last Modified By Organization Details Last Modified Time 03/17/2022 [id number] sore throat: car e instructions [email or web address] Not available 03/17/2022 15:22:14 Based on your [...] 6. Severe Headache Thank you for using [employer] today, please feel free to contact our office if you have any questions or concerns. [email or web address] Not available 03/17/2022 15:20:48 Reason for Referral None Reported. Results Created Date Observation Date Name Description Value Unit Range Abnormal Flag Note LastModifiedBy Organization Detail LastModifiedTime 03/17/20 22 03/20/2022 BETA STREP GP A CULTU RE beta strep gp A culture Negati ve Refer ence Range : Negat carly Not Available [facility] ([facility]) [address], [place], [address], 03/20/2022 14:06:37 03/17/20 22 03/17/2022 rapid strep group A, throa t Unknown Analyte negati ve Not Available [address] [place] [address], [id number], 03/17/2022 14:56:30 03/17/20 22 03/17/2022 rapid strep group A, throa t Unknown Analyte Normal = Negati ve Not Available [address] [place] [address], [id number], 03/17/2022 14:56:30 Result Notes None recorded. Problems Name Problem SNOMED Code Status Onset Date Resolution Date Notes Provider Name and Address Organization Details Recorded Time Asthma [id number] Active 022 VISHAL Carrasquillo - [facility] [...] Last Updated DateTime 157.48 cm 45.7 kg/m2 644564. 09 g 98 % 98 % 100 /min 18 /min 98.8 [degF] 118 mm[Hg] 77 mm[Hg] DENISE RODGERS - [facility] 14:59:17 Social History Question Answer Notes LastModified by Organizat ion Details LastModified Time Tobacco Smoking Status Never Smoker VISHAL Carrasquillo - [facility] 03/17/2022 14:58:04 What Is Your Level Of Alcohol Consumption? Occasional [email or web address] Information not available 03/17/2022 Do You Use Any Illicit Or Recreational Drugs? No [email or web address] Information not available 03/17/2022 Have You Recently Traveled Abroad? No [email or web address] Information not available 03/17/2022 Do You Or Have You Ever Used Any Other Forms Of Tobacco Or Nicotine? No [email or web address] Information not available 03/17/2022 Sex: Unknown Functional Status None recorded. Mental Status None recorded. Family History Relationship Description Onset Age of this Age Resolved Age Notes LastModified by Organization Details LastModified Time Father No current problems or disability [email or web address] Not available 03/17 14:57:49 Mother No current problems or disability Not available 03/17 14:57:49 Medical History No medical history recorded. Gynecological HistoryNo gynecological history recorded. Obstetrics History GPAL:G 0 P 0 0 0 0 Past Encounters Encounter ID Performer Location Encounter Start Date Encounter Closed Date Diagnosis/Indication Diagnosis SNOMED-CT Code Diagnosis ICD10 Code Diagnosis Note [id number] [address] [place] [address] 12/19/2016 11:43:47 12/19/2016 12:58:15 [id number] [place] [address] 11/30/2016 08:59:36 11/30/2016 10:04:56 [id number] VISHAL HIGGINS [address] [facility] [address] [place] [address] 03/17/2022 13:44:09 03/17/2022 15:23:30 Acute pharyngitis 076866480 J02.9 Health Concerns Section Related Observation LastModified by Organization Detai ls LastModified Time None Recorded Concern Status LastModified by Organization Details LastModified Time None Recorded Advance Directives Directive None Recorded Payers Encounter Date Sequence Insurance Name Policy Number Policy Cyr Covered Member ID Cyr Member ID Guarantor Name 11/30/2016 1 [facility] (O) [id number] Jane Marcos [id number] Jane Marcos 12/19/2016 1 [facility] (O) [id number] Jane Marcos [id number] Jane Marcos 03/17/2022 1 [place] [facility] Jane Marcos [id number] Jane Marcos Notes Date Note Type Note Provider Name and Address Organization Details Recorded Time 2 text/html Sore throatReported bypatient.Source of patient informationInformation obtained from patient; Patient arrived at Urgent Care ambulatory Location:throat Severity:mild Onset/Timin days Associated Symptoms:sore throat;weakness;fever;hoars eness;nausea VISHAL HIGGINS [address] [place], [address], [place] - [facility] 03/18/2022 08:19:34 OBGyn Episode No OBEpisode recorded.
== END 2024-06-15 13:22 | disposition home or self-care (01) ==
PROVIDERS: PCP Nurse Practitioner Family; Visit Provider Nurse Practitioner Family
DX: G47.33 Obstructive sleep apnea (adult) (pediatric) (principal); F41.1 Generalized anxiety disorder; F33.0 Major depressive disorder, recurrent, mild; E66.01 Morbid (severe) obesity due to excess calories; Z68.42 Body mass index [BMI] 45.0-49.9, adult; E28.2 Polycystic ovarian syndrome; R73.03 Prediabetes; K76.0 Fatty (change of) liver, not elsewhere classified; L73.2 Hidradenitis suppurativa; J45.40 Moderate persistent asthma, uncomplicated

== ENCOUNTER → 2024-06-15 12:39 | Outpatient (BNVA) | payer OTHER, SELFPAY | PROVIDERS: PCP Nurse Practitioner Family; Visit Provider Nurse Practitioner Family | DX: G47.33 Obstructive sleep apnea (adult) (pediatric) (principal); F41.1 Generalized anxiety disorder; F33.0 Major depressive disorder, recurrent, mild; E66.01 Morbid (severe) obesity due to excess calories; Z68.42 Body mass index [BMI] 45.0-49.9, adult; E28.2 Polycystic ovarian syndrome; R73.03 Prediabetes; K76.0 Fatty (change of) liver, not elsewhere classified; L73.2 Hidradenitis suppurativa; J45.40 Moderate persistent asthma, uncomplicated | CPT/HCPCS: 96127; 99212 ==

== ENCOUNTER 2024-08-11 08:39 | Outpatient (AMB) | payer OTHER, SELFPAY ==
--- NOTE | 2024-08-11 08:42 | MHC.OFFWIV ---
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 Allergies No Known Allergies Allergy (Verified 08/11/24 08:49) Medication List - Last Reconciled 08/11/24 by Becca Miller, [facility] albuterol sulfate 90 mcg/actuation 2 puffs inhalation Q6H PRN drospirenone-ethinyl estradiol 3-0.03 mg 1 tab PO DAILY fluticasone furoate 50 mcg/actuation (Arnuity Ellipta) 1 inh inhalation ONCE medroxyprogesterone 2.5 mg PO DIRECTED metformin ER 500 mg PO DAILY paroxetine HCl 10 mg PO DAILY Do you need a note to return to daycare/school/sports/work: No HPI HPI Comments History of Present Illness Details 29-year-old female with moderate persistent asthma, PCOS, morbid obesity, obstructive sleep apnea (home sleep study 02/08/24), generalized anxiety disorder, seasonal allergies, prediabetes, hidradenitis suppurativa, fatty liver, thyroid nodules, JETT on CPAP Status post appendectomy History - The patient is a 29-year-old female presenting with loss of voice, which commenced on Wednesday. A slight sore throat was noted over the preceding weekend, which has since resolved. - No associated fever, chills, or runny nose were initially reported; however, a runny nose was noticed in the morning - A dry cough was reported, and the patient is using her inhaler, without taking any allergy-specific medications like Zyrtec. - Improvement in voice noted since it was completely lost, though hoarseness persists. - No symptoms of acid reflux were reported. Physical Exam General: Awake, alert. No apparent distress Eyes: Sclera and conjunctiva clear bilaterally Nose: Nares with clear drainage bilat, worse on L, turbinates pale and edematous, no sinus tenderness with palpation bilaterally Ears: TM intact bilat, clear on R, mild congestion on L Throat: Moist mucosa membrane, pharynx within normal limits, + PND Cardiovascular: Regular rate and rhythm Respiratory: Clear to auscultation bilaterally, dim throughout Results Strep negative Discussion Notes I discussed with the patient the possibility of allergies contributing to her symptoms. We talked about environmental triggers, such as air quality and the use of a fan or open window, potentially worsening her condition. I proposed managing her symptoms as allergic rhinitis. The potential treatment includes prescribing an antihistamine, specifically levocetirizine 5 mg, to be taken once daily. The use of Flonase, despite her discomfort with nasal sprays, and saline rinses was discussed. Saltwater gargles were recommended for throat symptom relief. I advised the patient about potential gngf-ofk-fchqkue acquisition of these medications and maintaining a routine to avoid allergens. In the worst-case scenario, I assured her that she should reach out if symptoms exacerbate. Assessment and Plan 1. Laryngitis Likely secondary to postnasal drip potentially from allergic rhinitis. Recommended saltwater gargles for symptom relief. Advised to monitor and contact if the condition worsens. 2. Allergic Rhinitis Suggested management with levocetirizine 5 mg daily, saline rinses, and Flonase for her symptoms. Ensure avoidance of potential allergens and consider [id number]-wswkygu options if required. Patient Instructions - Take levocetirizine 5 mg once a day. You can buy generic at the pharmacy. - Perform saline rinses and use Flonase as advised. - Use saltwater gargles to help with throat symptoms. - Avoid using fans or opening windows when the air quality is bad. - Rinse off after coming indoors to remove allergens from your skin and clothes. - Contact us if your symptoms get worse or don?t improve. Consent Patient was informed and verbally consented to the use of an ambient scribe for clinic note documentation during this visit. [facility] Medical History (Updated 04/20/24 @ 13:54 by NAIDA Casey) Anxiety Asthma IBS (irritable bowel syndrome) Surgical History (Updated 12/17/23 @ 11:10 by Patricia Reeves CMA) Hx of appendectomy Family History (Updated 12/17/23 @ 11:09 by Patricia Reeves CMA) Father HTN (hypertension) Maternal Grandmother Diabetes Mother Cancer Other Thyroid cancer Social History (Updated 12/17/23 @ 11:10 by PAULA Argueta Housing: House Patient Tobacco Use Status: Never used Tobacco e-Cigarette/Vaping Use: Never Used Second Hand Smoke Exposure: No service: No Current occupational status: employed 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 Current occupational exposures/hazards: No Cognitive needs: No Hearing needs: No Vision needs: No Physical Exam Vital Signs: Last Vital Signs Temp 97.3 F 08/11/24 08:45 Pulse 93 08/11/24 08:45 Resp 12 08/11/24 08:45 BP 110/70 08/11/24 08:45 Pulse Ox 96 08/11/24 08:45 Oxygen Delivery Method Simple Mask 08/11/24 08:45 BMI result Body Mass Index 46.7 Results AMB Rapid Strep AMB Rapid Strep Negative Last Edit by Donavon Fox MA on 08/11/24 09:02 Assessment & Plan Assessment & Plan (1) Nasopharyngitis: Code(s): J00 - Acute nasopharyngitis [common cold] (2) Environmental allergies: Code(s): Z91.09 - Other allergy status, other than to drugs and biological substances Plan . Orders: Orders AMB Rapid Strep Screen Today Z13.9 - Encounter for screening, unspecified Medications: New levocetirizine 5 mg PO DAILY 90 tabs 0RF fluticasone propionate 50 mcg/actuation (Flonase Allergy Relief) administer into each nostril 1 spray intranasal BID 16 grams 2RF Coding Level of Care Code Est Pt Level 4 (18125) Diagnoses Nasopharyngitis J00 Environmental allergies Z91.09
[2024-08-11 08:45] VITALS: BP 110/70; PULSE 93; RESP 12; TEMP 36.3; O2SAT 96; BMI 46.7
--- OUTSIDE RECORDS SUMMARY | 2024-08-11 09:04 | XMS_ITS ---
Author Name [facility] Organization Unknown Care Team Organization Name Specialty Phone Email Start Date End Da te [facility] ([place])
== END 2024-08-11 09:11 | disposition home or self-care (01) ==
LOC: HO.HMCFM 08:40
PROVIDERS: PCP Nurse Practitioner Family; Visit Provider Nurse Practitioner Family
DX: J00 Acute nasopharyngitis [common cold] (principal); Z91.09 Other allergy status, other than to drugs and biological substances; Z13.9 Encounter for screening, unspecified

== ENCOUNTER → 2024-08-11 08:39 | Outpatient (BNVA) | payer OTHER, SELFPAY | PROVIDERS: PCP Nurse Practitioner Family; Visit Provider Nurse Practitioner Family | DX: J45.40 Moderate persistent asthma, uncomplicated (principal); E28.2 Polycystic ovarian syndrome; E66.01 Morbid (severe) obesity due to excess calories; G47.33 Obstructive sleep apnea (adult) (pediatric); F41.9 Anxiety disorder, unspecified; R73.03 Prediabetes; K76.0 Fatty (change of) liver, not elsewhere classified; L73.2 Hidradenitis suppurativa; E04.1 Nontoxic single thyroid nodule; Z99.89 Dependence on other enabling machines and devices; Z91.09 Other allergy status, other than to drugs and biological substances | CPT/HCPCS: 87880; 99212 ==

== ENCOUNTER 2024-09-27 12:45 | Outpatient (AMB) | payer OTHER, SELFPAY ==
--- NOTE | 2024-09-27 12:48 | MHC.PC.OV ---
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: No Allergies No Known Allergies Allergy (Verified 09/27/24 12:59) Medication List - Last Reconciled 09/27/24 by Becca Miller, [facility]- albuterol sulfate 90 mcg/actuation 2 puffs inhalation Q6H PRN drospirenone-ethinyl estradiol 3-0.03 mg 1 tab PO DAILY fluticasone furoate 50 mcg/actuation (Arnuity Ellipta) 1 inh inhalation ONCE fluticasone propionate 50 mcg/actuation (Flonase Allergy Relief) 1 spray intranasal BID levocetirizine 5 mg PO DAILY medroxyprogesterone 2.5 mg PO DIRECTED paroxetine HCl 10 mg PO DAILY Tobacco use date assessed: 09/27/24 Dental Screening Dental Screen Date: 09/27/24 Did you have a dental visit in the last 12 months?: Yes Did you have a dental problem in the last 6 months where you did not have access to dental care?: No Was dental information given to patient?: Patient has dentist HPI HPI Comments History of Present Illness Details 29-year-old female with moderate persistent asthma, PCOS, morbid obesity, obstructive sleep apnea (home sleep study 02/08/24), generalized anxiety disorder, seasonal allergies, prediabetes, hidradenitis suppurativa, fatty liver, thyroid nodules, JETT on CPAP Status post appendectomy Family hx: Sister thyroid cancer 2022 age 27, Mom with MS, MGM DM, PGF COPD 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 No wt loss. Stopped Metformin thought it made her depressed. This was in August. Spinning at [employer] appt end of this month Mood is good. In counseling. Paxil is working well. No more panic. JETT on CPAP: still using as directed. Did not use while sick but back to using as directed. Helps her sleep thru night; does not affect energy during the day. Still feels tired. Asthma/Allergies: Stopped taking Arnuity as this made her dizzy. Sx are not well controlled. Wonders about alternatives. HS - still has not heard from Derm about this. Provided info for [facility], referral placed 07/2024. So tired has to snack all day long to stay awake or she can nod off. This can happen at work and at home. Results 05/2024 labs WNL, a1c 5.5% Fasting glucose 112 Physical Exam Awake alert oriented no acute distress Acanthosis nigricans Scleras nonicteric TM intact bilat, clear on R, mild erythema on L Nares + congestion, turbinates erythematous and edematous, L>R Pharynx clear Nodular thryoid, nontender Regular rate and rhythm Lung sounds clear to auscultation bilat, dim throughout Abd soft, nontender No edema BLE Mood and affect appopriate. Plan Start Combivent use QID Ok to use as rescue inhaler too Re-start flonase Cont Xyzal Refer [place] [facility] for eval and tx of chronic fatigue in the setting of treated JETT ??? Narcolepsy component. FU with [facility] for HS Labs today to eval chronic conditions and investigate fatigue cont paxil and counseling refer to [facility] wt mgmt -- NON surgical treatment for wt loss RTO January for routine fu, sooner PRN Total time spent caring for the patient today was 45 minutes. This includes time spent before the visit reviewing the chart, time spent during the visit, and time spent after the visit on documentation, reviewing laboratory results, diagnostic imaging, medications, performing a medically necessary evaluation, counseling on diagnoses, care coordination, ordering appropriate tests, ordering appropriate medications, review of tests performed by other providers, reporting test results with the patient, communication with other healthcare providers. [facility] Medical History (Updated 09/27/24 @ 13:37 by Becca Miller, [facility]) Anxiety Asthma IBS (irritable bowel syndrome) Surgical History (Updated 12/17/23 @ 11:10 by Patricia Reeves CMA) Hx of appendectomy Family History (Updated 12/17/23 @ 11:09 by Patricia Reeves CMA) Father HTN (hypertension) Maternal Grandmother Diabetes Mother Cancer Other Thyroid cancer Social History (Updated 12/17/23 @ 11:10 by Patricia Reeves CMA) Housing: House Patient Tobacco Use Status: Never used Tobacco e-Cigarette/Vaping Use: Never Used Second Hand Smoke Exposure: No service: No Current occupational status: employed 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 Current occupational exposures/hazards: No Cognitive needs: No Hearing needs: No Vision needs: No Questionnaire Thrive Questionnaire Date Thrive assessed: 04/13/24 I am a: Patient What is your living situation today?: I have a steady place to live Within the past 12 months, did the food you bought not last and you didn't have the money to get more?: Never true Within the past 12 months, did you worry whether your food would run out before you got money to buy more?: Never true Do you have trouble paying for medicines?: No Do you have trouble getting transportation to medical appointments?: No Do you have trouble paying your heating and electricity bill?: No Do you have trouble taking care of your child, family member or friend?: No Do you have trouble with day-to-day activities such as bathing, preparing meals, shopping, managing finances, etc.?: No Are you currently unemployed and looking for a job?: No Are you interested in more education?: No Please select the resources that you would like help with: None Currently or been in a relationship where the following occur: No concerns reported THRIVE Score: 0 FRANKLIN-7 AMB Questionnaire FRANKLIN-7 Date FRANKLIN - 7 assessed: 06/15/24 Source: Developed by Drs. Avtar Tanner, Doris Akins, Raza Lobato and colleagues, with an educational viktor from [employer]. ACT Questionnaire In the past 4 weeks, how much of the time did your asthma keep you from getting as much done at work, school or at home?: Some of the time During the past 4 weeks, how often have you had shortness of breath?: 3-6 times a week During the past 4 weeks, how often did your asthma symptoms wake you up at night or earlier than usual in the morning?: 2-3 nights a week During the past 4 weeks, how often have you had to use your rescue inhaler or nebulizer medication?: 2-3 times a week How would you rate your asthma control during the past 4 weeks?: Somewhat controlled ACT Interpretation: Positive ACT Branch: New medication Score: 14 Physical exam (Primary Care) Vital Signs: Last Vital Signs Temp 97.5 F 09/27/24 12:50 Pulse 64 09/27/24 12:50 Resp 12 09/27/24 12:50 BP 104/67 09/27/24 12:50 Pulse Ox 98 09/27/24 12:50 Oxygen Delivery Method Room Air 09/27/24 12:50 BMI result Body Mass Index 48.5 BMI Assessment/Plan discussion: High BMI High, discussed plan: lifestyle and weight reduction Tobacco/Smoking Status: Tobacco use Status Tobacco use date assessed 09/27/24 09/27/24 12:52 Patient Tobacco Use Status Never used Tobacco 09/27/24 12:52 e-Cigarette/Vaping Use Never Used 09/27/24 12:52 Thrive Assessment: Date of Thrive Assessment Date Thrive assessed 04/13/24 09/27/24 12:52 Currently or been in a relationship where the following occur: No concerns reported Office Procedures Office Procedure Misc Details: 15 minutes spent Discussing different forms of medications to help with weight loss. Discouraged the use of GLP-1s due to the need to use lifelong, weight gain after discontinuation, cost and cancer risk. Educated about the use of Wellbutrin which can be used in patients without a seizure history. This medication works by blocking out the reward center related to mindless eating. It also has a mild stimulating effect. The side effect profile includes mild anxiety as well as a slight dizzy sensation. Another medication used is metformin, this is a diabetic medication. This medication has GI side effects. But can be very beneficial in aiding with weight loss in patients without diabetes. Topiramate was also discussed. This is a seizure medication with side effect profile that includes need to monitor LFTs as well as blood counts. One of the side effects is weight loss. Another medication, Phentermine is a stimulant/controlled substance. This is an anorexient that is used short-term medication used. =. Finally the use of a medication called Contrave, which is Wellbutrin + naltrexone can be used. The brand name is usually not cover therefore would have to prescribe the 2 medications individually. This medication works just as the Wellbutrin; naltrexone aides in further blocking of the reward center to aide in wt loss. Finally, referral to [facility]'s weight management offices was offered. Educated about the surgical and nonsurgical approaches to weight loss. After discussion of the above, the patient wishes to proceed with: Referral to medical weight management [facility] [id number] 15 MINUTE OBESITY EDUCATION Office Procedure Billing Code: AMB Procedure Billing Code (G0449 15 MINUTE OBESITY EDUCATION) Coding Level of Care Code Est Pt Level 5 (45549) Complex EM visit Add On G2211 Diagnoses JETT (obstructive sleep apnea) G47.33 Chronic fatigue R53.82 Morbid obesity with BMI of 45.0-49.9, adult E66.01; Z68.42 PCOS (polycystic ovarian syndrome) E28.2 Prediabetes R73.03 Hepatic steatosis K76.0 FRANKLIN (generalized anxiety disorder) F41.1 Hidradenitis suppurativa L73.2 Mild episode of recurrent major depressive disorder F33.0 Major depression episode severity: mild Moderate persistent asthma without complication J45.40 Asthma complication type: uncomplicated CPT Codes Office Procedure - Office Procedure Billing Code: AMB Procedure Billing Code ([id number]) Additional Codes Asthma Control Questionnaire - ACT Interpretation: Positive ([id number]) Assessment & Plan Assessment & Plan (1) JETT (obstructive sleep apnea): Comment: 02/08/24 home sleep study BAEZA 5.1, 0AI 1.3, CARI, 0, lowest desaturation 63% Diagnosis of obstructive sleep apnea, AHI 5, most obstructive events were in the supine position with supine AHI 7.6, moderate amount of snoring about 20% of the time mild nocturnal hypoxemia with average O2 sat 93% and O2 sat below 88% for 5 minutes highest heart rate was over 200 Recommend aggressive weight reduction and position therapy, could consider CPAP On CPAP [facility] Code(s): G47.33 - Obstructive sleep apnea (adult) (pediatric) Category: Medical (2) Chronic fatigue: Code(s): R53.82 - Chronic fatigue, unspecified Category: Medical (3) Morbid obesity with BMI of 45.0-49.9, adult: Code(s): E66.01 - Morbid (severe) obesity due to excess calories; Z68.42 - Body mass index [BMI] 45.0-49.9, adult Category: Medical (4) PCOS (polycystic ovarian syndrome): Code(s): E28.2 - Polycystic ovarian syndrome Category: Medical (5) Prediabetes: Code(s): R73.03 - Prediabetes Category: Medical (6) Hepatic steatosis: Code(s): K76.0 - Fatty (change of) liver, not elsewhere classified Category: Medical (7) FRANKLIN (generalized anxiety disorder): Code(s): F41.1 - Generalized anxiety disorder Category: Medical (8) Hidradenitis suppurativa: Code(s): L73.2 - Hidradenitis suppurativa Category: Medical (9) MDD (major depressive disorder), recurrent episode: Code(s): F33.9 - Major depressive disorder, recurrent, unspecified Category: Medical Qualifiers: Major depression episode severity: mild Qualified Code(s): F33.0 - Major depressive disorder, recurrent, mild (10) Moderate persistent asthma: Code(s): J45.40 - Moderate persistent asthma, uncomplicated Category: Medical Qualifiers: Asthma complication type: uncomplicated Qualified Code(s): J45.40 - Moderate persistent asthma, uncomplicated Plan . Orders: Orders Comprehensive Met. Panel Today E28.2 - Polycystic ovarian syndrome, K76.0 - Fatty (change of) liver, not elsewhere classified, R53.82 - Chronic fatigue, unspecified, R73.03 - Prediabetes Complete Blood Count no Diff Today E28.2 - Polycystic ovarian syndrome, K76.0 - Fatty (change of) liver, not elsewhere classified, R53.82 - Chronic fatigue, unspecified, R73.03 - Prediabetes Ferritin Today E28.2 - Polycystic ovarian syndrome, K76.0 - Fatty (change of) liver, not elsewhere classified, R53.82 - Chronic fatigue, unspecified, R73.03 - Prediabetes Lipid Panel Today E28.2 - Polycystic ovarian syndrome, K76.0 - Fatty (change of) liver, not elsewhere classified, R53.82 - Chronic fatigue, unspecified, R73.03 - Prediabetes TSH reflex Free T4 Today E28.2 - Polycystic ovarian syndrome, K76.0 - Fatty (change of) liver, not elsewhere classified, R53.82 - Chronic fatigue, unspecified, R73.03 - Prediabetes Hemoglobin A1c Today E28.2 - Polycystic ovarian syndrome, K76.0 - Fatty (change of) liver, not elsewhere classified, R53.82 - Chronic fatigue, unspecified, R73.03 - Prediabetes IRON PROFILE Today E28.2 - Polycystic ovarian syndrome, K76.0 - Fatty (change of) liver, not elsewhere classified, R53.82 - Chronic fatigue, unspecified, R73.03 - Prediabetes Vitamin D 25-OH Total Today E28.2 - Polycystic ovarian syndrome, K76.0 - Fatty (change of) liver, not elsewhere classified, R53.82 - Chronic fatigue, unspecified, R73.03 - Prediabetes Vitamin B12 and Folate Today E28.2 - Polycystic ovarian syndrome, K76.0 - Fatty (change of) liver, not elsewhere classified, R53.82 - Chronic fatigue, unspecified, R73.03 - Prediabetes Referrals Medical Weight Management Referral E66.01 - Morbid (severe) obesity due to excess calories, Z68.42 - Body mass index [BMI] 45.0-49.9, adult Neurology Referral G47.33 - Obstructive sleep apnea (adult) (pediatric), R53.82 - Chronic fatigue, unspecified Medications: New ipratropium-albuterol 20-100 mcg/actuation (Combivent Respimat) space evenly during waking hours 1 puff inhalation QID 4 grams 3RF prednisone 20 mg PO DAILY 5 tabs 0RF Refilled paroxetine HCl 10 mg PO DAILY 90 tabs 1RF Discontinued fluticasone furoate 50 mcg/actuation (Arnuity Ellipta) Discontinued Reason: Patient no longer taking 1 inh inhalation ONCE 30 ea 3RF Patient Instructions: [phone] Fax
[2024-09-27 12:50] VITALS: BP 104/67; PULSE 64; RESP 12; TEMP 36.4; O2SAT 98; BMI 48.5
== END 2024-09-27 13:35 | disposition home or self-care (01) ==
LOC: HO.HMCFM 12:46
PROVIDERS: PCP Nurse Practitioner Family; Visit Provider Nurse Practitioner Family
DX: G47.33 Obstructive sleep apnea (adult) (pediatric) (principal); E66.01 Morbid (severe) obesity due to excess calories; Z68.42 Body mass index [BMI] 45.0-49.9, adult; R53.82 Chronic fatigue, unspecified; E28.2 Polycystic ovarian syndrome; R73.03 Prediabetes; K76.0 Fatty (change of) liver, not elsewhere classified; F41.1 Generalized anxiety disorder; L73.2 Hidradenitis suppurativa; F33.0 Major depressive disorder, recurrent, mild; J45.40 Moderate persistent asthma, uncomplicated

== ENCOUNTER 2024-09-27 13:28 | Outpatient (REF) | payer OTHER, SELFPAY ==
[2024-09-27 18:16] LABS: Hematocrit 37.4 % (37.0-47.0); Hemoglobin 11.7 g/dl (12.0-16.0); Mean Corpuscular HGB Conc 31.3 g/dl (31.0-35.0); Mean Corpuscular Hemoglobin 26.8 pg (27.0-33.0); Mean Corpuscular Volume 85.6 fL (80.0-98.0); Platelet Count 418 X10*3/uL (160-400); Red Blood Count 4.37 X10*6/uL (4.20-5.50); Red Cell Distribution Width 14.7 % (11.0-16.0)
[2024-09-27 18:29] LABS: Alanine Aminotransferase 9 U/L (0-31); Albumin Level 3.7 g/dL (3.5-5.0); Alkaline Phosphatase 59 U/L (39-117); Anion Gap 12 (12-20); Aspartate Amino Transferase 20 U/L (5-31); Bilirubin Total 0.2 mg/dL (0.0-1.0); Blood Urea Nitrogen 6 mg/dL (9-16); Calcium 8.7 mg/dL (8.4-10.2); Carbon Dioxide 26 mmol/L (22-29); Chloride 107 mmol/L (96-108); Cholesterol 154 mg/dL (<200); Estimated Glomerular Filt Rate > 60; Glucose Random 92 mg/dL (60-115); HDL Cholesterol 52 mg/dL (>40); Iron 25 mcg/dL (30-160); LDL Cholesterol Calculated 72 mg/dL (<100); Percent Iron Saturation 9 % (15-50); Potassium 3.9 mmol/L (3.3-5.1); Sodium 141 mmol/L (135-145); Total Iron Binding Capacity 278 mcg/dL (228-428); Total Protein 7.2 g/dL (6.5-8.0); Triglycerides 151 mg/dL (<150); Unsaturated Iron Binding 253 ug/dL
[2024-09-27 18:46] LABS: Ferritin 61 ng/mL (10-122); TSH reflex Free T4 1.23 uIU/mL (0.32-4.0); Vitamin D 25-OH Total 35.1 ng/mL (>30)
[2024-09-27 18:51] LABS: Folate 5.4 ng/mL (> or = 4.0); Vitamin B12 331 pg/mL (200-900)
[2024-09-28 07:19] LABS: Estimated Average Glucose 114 mg/dL; Hemoglobin A1c % 5.6 % (<6.0)
== END 2024-09-27 13:29 | disposition home or self-care (01) ==
LOC: HO.WFDLDS 13:28
PROVIDERS: Visit Provider Nurse Practitioner Family
DX: J45.40 Moderate persistent asthma, uncomplicated (principal); G47.33 Obstructive sleep apnea (adult) (pediatric); R53.82 Chronic fatigue, unspecified; E66.01 Morbid (severe) obesity due to excess calories; Z68.42 Body mass index [BMI] 45.0-49.9, adult; E28.2 Polycystic ovarian syndrome; R73.03 Prediabetes; K76.0 Fatty (change of) liver, not elsewhere classified; F41.1 Generalized anxiety disorder; L73.2 Hidradenitis suppurativa; F33.0 Major depressive disorder, recurrent, mild; Z99.89 Dependence on other enabling machines and devices
CPT/HCPCS: 36415; 80053; 80061; 82306; 82607; 82728; 82746; 83036; 83540; 84443; 85027; 96160; 99212

== ENCOUNTER 2024-12-05 14:33 | Outpatient (AMB) | payer OTHER, SELFPAY ==
--- NOTE | 2024-12-05 14:32 | A.OFFPC_ITS ---
Intake Visit Reasons: ADHD Medication Intake Note: Telehealth to possibly start adhd meds. 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 Required: No Allergies No Known Allergies Allergy (Verified 12/05/24 15:43) Medication List - Last Reconciled 12/05/24 by Becca Miller, [facility]- albuterol sulfate 90 mcg/actuation 2 puffs inhalation Q6H PRN drospirenone-ethinyl estradiol 3-0.03 mg 1 tab PO DAILY ferrous sulfate 325 mg PO DAILY fluticasone propionate 50 mcg/actuation (Flonase Allergy Relief) 1 spray intranasal BID ipratropium-albuterol 0.5 mg-3 mg(2.5 mg base)/3 mL 3 mL inhalation QID PRN levocetirizine 5 mg PO DAILY magnesium oxide 250 mg PO DAILY nebulizers (Altera Nebulizer System) USE QID PRN WHEEZING paroxetine HCl 10 mg PO DAILY propranolol 10 mg PO DAILY PRN Tobacco use date assessed: 12/05/24 Dental Screening Dental Screen Date: 12/05/24 Did you have a dental visit in the last 12 months?: Yes Did you have a dental problem in the last 6 months where you did not have access to dental care?: No Was dental information given to patient?: Patient has dentist HPI HPI Comments History of Present Illness Details 29-year-old female with moderate persist ent asthma, PCOS, morbid obesity, obstructive sleep apnea (home sleep study 02/08/24), generalized anxiety disorder, seasonal allergies, prediabetes, hidradenitis suppurativa, fatty liver, thyroid nodules, JETT on CPAP Status post appendectomy Family hx: Sister thyroid cancer 2022 age 27, Mom with MS, MGM DM, PGF COPD 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 Paxil is working well. No more panic. PRN propanolol with good effect. 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 Helps her sleep thru night; does not affect energy during the day. Still feels tired. So tired has to snack all day long to stay awake or she can nod off. This can happen at work and at home. Appt w/ neuro not until 02/2025. Advised to call to see if cancellations occur for sooner appt. Plan [facility] for eval and tx of chronic fatigue in the setting of treated JETT ??? Narcolepsy component. - Initiate bupropion and monitor for eff ects. Denies Hx of sz. Side effects reviewed w/ her. Can consider psych referral prn. cont paxil, propanolol and counseling RTO January for routine fu, sooner PRN Telehealth Attestation This visit was conducted via telehealth, and the documentation accurately reflects the interaction and data obtained during the session. The patient has been explained that this is an interactive (audio/video) telehealth encounter and what that consists of. The patient understands and wishes to proceed. Collect platform was used. Total time spent caring for the patient today was 21 minutes. This includes time spent before the visit reviewing the chart, time spent during the visit, and time spent after the visit on documentation, reviewing laboratory results, diagnostic imaging, medications, performing a medically necessary evaluation, counseling on diagnoses, care coordination, ordering appropriate tests, ordering appropriate medications, review of tests performed by other providers, reporting test results with the patient, communication with other healthcare providers. REPLACED BY [facility] Medical History (Updated 12/05/24 @ 15:58 by Becca Miller, [facility]) Anxiety Asthma IBS (irritable bowel syndrome) Surgical History (Updated 10/30/24 @ 14:43 by Annalisa Harris CMA) Hx of appendectomy Hx of wisdom tooth extraction Family History (Updated 12/17/23 @ 11:09 by Patricia Reeves CMA) Father HTN (hypertension) Maternal Grandmother Diabetes Mother Cancer Other Thyroid cancer Social History (Updated 10/30/24 @ 14:43 by Annalisa Harris CMA) Housing: House Alcohol intake: current Alcohol intake frequency: holidays/special occasions only Patient Tobacco Use Status: Never used Tobacco e-Cigarette/Vaping Use: Never Used Second Hand Smoke Exposure: No service: No Current occupational status: employed 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 Current occupational exposures/hazards: No Cognitive needs: No Hearing needs: No Vision needs: No Questionnaire Thrive Questionnaire Date Thrive assessed: 04/13/24 I am a: Patient What is your living situation today?: I have a steady place to live Within the past 12 months, did the food you bought not last and you didn't have the money to get more?: Never true Within the past 12 months, did you worry whether your food would run out before you got money to buy more?: Never true Do you have trouble paying for medicines?: No Do you have trouble getting transportation to medical appointments?: No Do you have trouble paying your heating and electricity bill?: No Do you have trouble taking care of your child, family member or friend?: No Do you have trouble with day-to-day activities such as bathing, preparing meals, shopping, managing finances, etc.?: No Are you currently unemployed and looking for a job?: No Are you interested in more education?: No Please select the resources that you would like help with: None Currently or been in a relationship where the following occur: No concerns reported THRIVE Score: 0 FRANKLIN-7 AMB Questionnaire FRANKLIN-7 Date FRANKLIN - 7 assessed: 06/15/24 Source: Developed by Drs. Avtar Tanner, Doris Akins, Raza Lobato and colleagues, with an educational viktor from [employer]. Physical exam (Primary Care) Tobacco/Smoking Status: Tobacco use Status Tobacco use date assessed 12/05/24 12/05/24 14:33 Patient Tobacco Use Status Never used Tobacco 12/05/24 14:33 e-Cigarette/Vaping Use Never Used 12/05/24 14:33 Thrive Assessment: Date of Thrive Assessment Date Thrive assessed 04/13/24 12/05/24 14:33 Currently or been in a relationship where the following occur: No concerns re ported Telehealth Telehealth Telehealth Platform: [facility] Location of provider rendering services: practice address Location of patient: address on file Patient Identification confirmed using: Name, : Yes Telehealth method: voice only Patient verbally consented to treatment: Yes Patient verbally consented to billing insurance company: Yes Patient informed of any privacy concerns related to visit: Yes Minutes spent on Phone/Video with Pt.: 11 Coding Level of Care Code Tele Est Pt Level 3 (15810) Complex EM visit Add On G2211 Diagnoses FRANKLIN (generalized anxiety disorder) F41.1 Mild episode of recurrent major depressive disorder F33.0 Major depression episode severity: mild JETT (obstructive sleep apnea) G47.33 Chronic fatigue R53.82 Low motivation R46.89 Assessment & Plan Assessment & Plan (1) FRANKLIN (generalized anxiety disorder): Code(s): F41.1 - Generalized anxiety disorder Category: Medical (2) MDD (major depressive disorder), recurrent episode: Code(s): F33.9 - Major depressive disorder, recurrent, unspecified Category: Medical Qualifiers: Major depression episode severity: mild Qualified Code(s): F33.0 - Major depressive disorder, recurrent, mild (3) JETT (obstructive sleep apnea): Comment: 02/08/24 home sleep study BAEZA 5.1, 0AI 1.3, CARI, 0, lowest desaturation 63% Diagnosis of obstructive sleep apnea, AHI 5, most obstructive events were in the supine position with supine AHI 7.6, moderate amount of snoring about 20% of the time mild nocturnal hypoxemia with average O2 sat 93% and O2 sat below 88% for 5 minutes highest heart rate was over 200 Recommend aggressive weight reduction and position therapy, could consider CPAP On [facility]AP [facility] Code(s): G47.33 - Obstructive sleep apnea (adult) (pediatric) Category: Medical (4) Chronic fatigue: Code(s): R53.82 - Chronic fatigue, unspecified Category: Medical (5) Low motivation: Code(s): R46.89 - Other symptoms and signs involving appearance and behavior Category: Medical Plan . Medications: New bupropion HCl XL (Wellbutrin XL) 150 mg PO QAM 30 tabs 1RF Refilled propranolol 10 mg PO DAILY PRN 30 tabs 2RF anxiety
== END 2024-12-05 16:21 | disposition home or self-care (01) ==
LOC: HO.HMCFM 14:33
PROVIDERS: PCP Nurse Practitioner Family; Visit Provider Nurse Practitioner Family
DX: F41.1 Generalized anxiety disorder (principal); F33.0 Major depressive disorder, recurrent, mild; G47.33 Obstructive sleep apnea (adult) (pediatric); R53.82 Chronic fatigue, unspecified; R46.89 Other symptoms and signs involving appearance and behavior

== ENCOUNTER 2024-12-29 08:16 | Outpatient (AMB) | payer OTHER, SELFPAY ==
--- NOTE | 2024-12-29 08:30 | A.OFFVIS_ITS ---
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 *BMI 47.7* Allergies No Known Allergies Allergy (Verified 12/29/24 08:30) Medication List - Last Reconciled 12/29/24 by Justin Alvarado MD albuterol sulfate 90 mcg/actuation 2 puffs inhalation Q6H PRN bupropion HCl XL (Wellbutrin XL) 150 mg PO QAM drospirenone-ethinyl estradiol 3-0.03 mg 1 tab PO DAILY ferrous sulfate 325 mg PO DAILY fluticasone propionate 50 mcg/actuation (Flonase Allergy Relief) 1 spray intranasal BID ipratropium-albuterol 0.5 mg-3 mg(2.5 mg base)/3 mL 3 mL inhalation QID PRN levocetirizine 5 mg PO DAILY magnesium oxide 250 mg PO DAILY nebulizers (Altera Nebulizer System) USE QID PRN WHEEZING paroxetine HCl 10 mg PO DAILY propranolol 10 mg PO DAILY PRN HPI HPI 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 *BMI 47.7*: Details: Start time: 8.15am, End time: 9am ?I spent 40 minutes speaking with the patient on the phone plus an additional 5 minutes reviewing and updating records for a total of 45 minutes HPI Comments Details: Previous weight loss efforts: self diet and exercise Wakes up: 6am, Sleeps: 10pm Breakfast: 7.30am (apple with peanut butter, Nata wrap) Lunch: 12pm (tacos, salad) Dinner: 6pm (salad, wrap) Snacks: 10am (trail mix, granola) Exercise: Stepper Beverages: Coffee/Tea: none, Soda: rarely, Juice: (1 glass of juice x4/wk), ETOH: rarely PFSH Medical History (Updated 12/29/24 @ 08:34 by Justin Alvarado MD) Hypertension Anxiety IBS (irritable bowel syndrome) Asthma Surgical History (Updated 10/30/24 @ 14:43 by Annalisa Harris CMA) Hx of wisdom tooth extraction Hx of appendectomy Family History (Updated 12/17/23 @ 11:09 by Patricia Reeves [facility]) Father HTN (hypertension) Maternal Grandmother Diabetes Mother Cancer Other Thyroid cancer Social History (Updated 10/30/24 @ 14:43 by Annalisa Harris [facility]) Housing: House Alcohol intake: current Alcohol intake frequency: holidays/special occasions only Patient Tobacco Use Status: Never used Tobacco e-Cigarette/Vaping Use: Never Used Second Hand Smoke Exposure: No service: No Current occupational status: employed 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 Current occupational exposures/hazards: No Cognitive needs: No Hearing needs: No Vision needs: No Telehealth Telehealth Telehealth Platform: Telephone Location of provider rendering services: practice address Location of patient: address on file Patient Identification confirmed using: Name, : Yes Telehealth method: voice only Patient verbally consented to treatment: Yes Patient verbally consented to billing insurance company: Yes Patient informed of any privacy concerns related to visit: Yes Minutes spent on Phone/Video with Pt.: 45 Assessment & Plan Assessment & Plan (1) Morbid obesity with BMI of 45.0-49.9, adult: Code(s): E66.01 - Morbid (severe) obesity due to excess calories; Z68.42 - Body mass index [BMI] 45.0-49.9, adult Category: Medical Plan: 1. As we discussed, based on your present BMI you are approximately 145lbs overweight. In my opinion, for any weight loss strategy to be successful should have a high probability to help you lose at least 120lbs out of 145lbs of the extra weight you carry. We discussed in detail the available therapeutic options: 1) our lifestyle intervention program that has an average weight loss of 10% in 3 months.?Some patients continue it for longer and have lost over 50lbs but this is not common. Our lifestyle program can be provided by me or by using our software wilmer, the [employer] wilmer. I will provide you with a link to use the wilmer if you choose to do so. We use protein shakes and protein bars to replace some of the meals of the day and cover your appetite better. We will decide together the exact combination. 2) Weight loss medications: these can be used in conjunction with our lifestyle program or you may choose to use them without following a lifestyle program from my program but your own. The medication I use more often is called Zepbound and is one shot per week. My office will do the authorizations and we will train you how to use it properly. The medications will not be enough to lose 100lbs or more and once they are stopped most patients regain the weight back 3) We also discussed about the lap sleeve gastrectomy. In my opinion this is the best option to solve your problem based on your situation and should be used in conjunction with the two previous options. A good strategy to make this decision to proceed with surgery, is to set some goals with the lifestyle intervention and medication options: If you don't lose at least 10lbs the first 6 weeks after starting the program or at least 10% in 3 months. ?I emphasized the importance of close follow-up, adherence to instructions and good communication. The surgery does not replace the need to change your lifestlyle which is the cause of the obesity problem. The surgery provides the motivation to try again to change your lifestyle, it reduces the appetite and make the transition to a better lifestyle easier and doubles the amount of weight you would lose compared to doing the lifestyle change without the surgery. You will need to be on a liquid diet with protein shakes for 2 weeks before surgery to maximize weight loss and boost your nutritional status to recover better from surgery and also for the first two weeks after surgery to let the stomach heal before we introduce other foods. After the first 2 weeks we will introduce protein bars and soft foods like scrambled eggs, cottage cheese and yogurt and after the 6th week will introduce meat, fish and cooked vegetables in small amounts. Over time you should be able to eat everything in small amounts. Side effects like nausea, vomiting, heartburn or abdominal pain are not common in the practice unless you are not following in the practice. This operation requires lifetime commitment to following in our practice and communication with me. You will much less weight and experience side effects if you don?t communicate or not following in the practice. Complications are rare and in our practice is about 1/10 of the national average. The patient will consider these options and get back to me with her decision.
[2024-12-29 08:39] VITALS: BMI 47.7
== END 2024-12-29 09:00 | disposition home or self-care (01) ==
LOC: HO.HBS 08:16
PROVIDERS: PCP Nurse Practitioner Family; Visit Provider Surgery
DX: E66.01 Morbid (severe) obesity due to excess calories (principal); Z68.42 Body mass index [BMI] 45.0-49.9, adult
CPT/HCPCS: 98010

== ENCOUNTER 2025-01-11 12:44 | Outpatient (AMB) | payer OTHER, SELFPAY ==
--- NOTE | 2025-01-11 12:47 | MHC.PC.OV ---
Vital Signs 01/11/25 12:50 Height 5 ft 2 in Weight 259 lb 8 oz BMI 47.5 BP 118/70 Blood Pressure Location Lt brachial Position Sitting Respiration 12 Pulse 78 Pulse Source Pulse Oximeter Temp 97.2 F Temp Source Oral Pulse Oximetry (%) 98 Oxygen Delivery Method Room Air Intake Visit Reasons: Oct 30min routine fu/possible adhd Intake Note: Routine follow up possible adhd. Veterans Adviser Required: No Allergies No Known Allergies Allergy (Verified 01/11/25 12:48) Medication List - Last Reconciled 01/11/25 by Becca Miller, [facility]- albuterol sulfate 90 mcg/actuation 2 puffs inhalation Q6H PRN bupropion HCl XL (Wellbutrin XL) 300 mg PO QAM drospirenone-ethinyl estradiol 3-0.03 mg 1 tab PO DAILY ferrous sulfate 325 mg PO DAILY fluticasone propionate 50 mcg/actuation (Flonase Allergy Relief) 1 spray intranasal BID ipratropium-albuterol 0.5 mg-3 mg(2.5 mg base)/3 mL 3 mL inhalation QID PRN levocetirizine 5 mg PO DAILY magnesium oxide 250 mg PO DAILY nebulizers (Altera Nebulizer System) USE QID PRN WHEEZING paroxetine HCl 10 mg PO DAILY propranolol 10 mg PO DAILY PRN Tobacco use date assessed: 01/11/25 Dental Screening Dental Screen Date: 01/11/25 Did you have a dental visit in the last 12 months?: Yes Did you have a dental problem in the last 6 months where you did not have access to dental care?: No HPI HPI Comments History of Present Illness Details 29-year-old female with moderate persistent asthma, PCOS, morbid obesity, obstructive sleep apnea (home sleep study 02/08/24), generalized anxiety disorder, seasonal allergies, prediabetes, hidradenitis suppurativa, fatty liver, thyroid nodules, JETT on CPAP Status post appendectomy Family hx: Sister thyroid cancer 2022 age 27, Mom with MS, MGM DM, PGF COPD 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 Paxil is working well. No more panic. PRN propanolol with good effect. Has helped ADHD like sx (no dx of ADHD) Cont w/ extreme sleepiness despite CPAP use. Compliance reviewed. She is using QHS. Nodding off while working or doing things. Neuro consult 02/2025. Would like new referral for NON-surgical wt loss. [facility] was not a good fit. Cont Spinning at [employer], will increase to twice per week. completing 25th class tonight! Initiated dietary modifications. Determined to lose weight BReathing is good; declined flu shot. Lump L leg, bothers her w/ activity, gets painful. This started after a fracture in childhood of L leg. US done and non-revealing. Exam Awake alert, NAD RRR LS CTAB, dim throughout No edema BLE, + PP, palpable and visible mass to L lower leg. Mood and affect appropriate Plan Increase wellbutrin from 150 to 300mg QD Cont all other meds & care w/ team MRI of LLE RTO 8 weeks to fu on wellbutrin increase and mRI results,sooner as needed. Total time spent caring for the patient today was 41 minutes. This includes time spent before the visit reviewing the chart, time spent during the visit, and time spent after the visit on documentation, reviewing laboratory results, diagnostic imaging, medications, performing a medically necessary evaluation, counseling on diagnoses, care coordination, ordering appropriate tests, ordering appropriate medications, review of tests performed by other providers, reporting test results with the patient, communication with other healthcare providers. [facility] Medical History (Updated 01/11/25 @ 13:09 by Becca Miller, [facility]) Anxiety Asthma Hypertension IBS (irritable bowel syndrome) Surgical History (Updated 10/30/24 @ 14:43 by Annalisa Harris CMA) Hx of appendectomy Hx of wisdom tooth extraction Family History (Updated 12/17/23 @ 11:09 by Patricia Reeves CMA) Father HTN (hypertension) Maternal Grandmother Diabetes Mother Cancer Other Thyroid cancer Social History (Updated 10/30/24 @ 14:43 by Annalisa Harris CMA) Housing: House Alcohol intake: current Alcohol intake frequency: holidays/special occasions only Patient Tobacco Use Status: Never used Tobacco e-Cigarette/Vaping Use: Never Used Second Hand Smoke Exposure: No service: No Current occupational status: employed 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 1. Little interest or pleasure in doing things: not at all 2. Feeling down, depressed, or hopeless: not at all 3. Trouble falling or staying asleep, or sleeping too much: not at all 4. Feeling tired or having little energy: not at all 5. Poor appetite or overeating: not at all 6. Feeling bad about yourself - or that you are a failure or have let yourself or your family down: not at all 7. Trouble concentrating on things, such as reading the newspaper or watching television: not at all 8. Moving or speaking so slowly that other people could have noticed. Or the opposite - being so fidgety or restless that you have been moving around a lot more than usual: not at all 9. Thoughts that you would be better off or of hurting yourself in some way: not at all Total score: 0 Depression Screening Interpretation: Negative Depression Screening Done: Yes 65367 - PHQ-9 Billing: Yes Source: Developed by Drs. Avtar Tanner, Doris Akins, Raza Lobato and colleagues, with an educational viktor from [employer]. Thrive Questionnaire Date Thrive assessed: 01/11/25 I am a: Patient What is your living situation today?: I have a steady place to live Within the past 12 months, did the food you bought not last and you didn't have the money to get more?: Never true Within the past 12 months, did you worry whether your food would run out before you got money to buy more?: Never true Do you have trouble paying for medicines?: No Do you have trouble getting transportation to medical appointments?: No Do you have trouble paying your heating and electricity bill?: No Do you have trouble taking care of your child, family member or friend?: No Do you have trouble with day-to-day activities such as bathing, preparing meals, shopping, managing finances, etc.?: No Are you currently unemployed and looking for a job?: No Are you interested in more education?: No Please select the resources that you would like help with: None Currently or been in a relationship where the following occur: No concerns reported THRIVE Score: 0 FRANKLIN-7 AMB Questionnaire FRANKLIN-7 Date FRANKLIN - 7 assessed: 01/11/25 Feeling nervous, anxious, or on edge: 0 = Not at all Not being able to stop or control worryin = Not at all Worrying too much about different things: 0 = Not at all Trouble relaxin = Not at all Being so restless that it is hard to sit still: 0 = Not at all Becoming easily annoyed or irritable: 0 = Not at all Feeling afraid as if something awful might happen: 0 = Not at all Total FRANKLIN-7 score (0-4 normal; 5-9 mild; 10-14 moderate; 15-21 severe): 0 Source: Developed by Drs. Avtar Tanner, Doris Akins, Raza Lobato and colleagues, with an educational viktor from [employer]. FRANKLIN-7 Assessment Billing FRANKLIN-7 Assessment Tool: FRANKLIN-7 Assessment 02440 Physical exam (Primary Care) Vital Signs: Last Vital Signs Temp 97.2 F 01/11/25 12:50 Pulse 78 01/11/25 12:50 Resp 12 01/11/25 12:50 BP 118/70 01/11/25 12:50 Pulse Ox 98 01/11/25 12:50 Oxygen Delivery Method Room Air 01/11/25 12:50 BMI result Body Mass Index 47.5 Tobacco/Smoking Status: Tobacco use Status Tobacco use date assessed 01/11/25 01/11/25 12:52 Patient Tobacco Use Status Never used Tobacco 01/11/25 12:52 e-Cigarette/Vaping Use Never Used 01/11/25 12:52 PHQ-9: PHQ-9 Score PHQ-9: Total score 0 01/11/25 12:52 Depression Screening Interpretation: Negative Thrive Assessment: Date of Thrive Assessment Date Thrive assessed 01/11/25 01/11/25 12:52 Currently or been in a relationship where the following occur: No concerns reported Coding Level of Care Code Est Pt Level 5 (27625) Complex EM visit Add On G2211 Diagnoses Morbid obesity with BMI of 45.0-49.9, adult E66.01; Z68.42 JETT (obstructive sleep apnea) G47.33 Influenza vaccination declined Z28.21 Mass of left lower leg R22.42 FRANKLIN (generalized anxiety disorder) F41.1 Mild episode of recurrent major depressive disorder F33.0 Major depression episode severity: mild Low motivation R46.89 Moderate persistent asthma without complication J45.40 Asthma complication type: uncomplicated Additional Codes FRANKLIN-7 Assessment Billing - FRANKLIN-7 Assessment Tool: FRANKLIN-7 Assessment 42014 ([id number]) PHQ-9 - 54679 - PHQ-9 Billing: Yes ([id number]) Assessment & Plan Assessment & Plan (1) Morbid obesity with BMI of 45.0-49.9, adult: Code(s): E66.01 - Morbid (severe) obesity due to excess calories; Z68.42 - Body mass index [BMI] 45.0-49.9, adult Category: Medical (2) JETT (obstructive sleep apnea): Comment: 02/08/24 home sleep study BAEZA 5.1, 0AI 1.3, CARI, 0, lowest desaturation 63% Diagnosis of obstructive sleep apnea, AHI 5, most obstructive events were in the supine position with supine AHI 7.6, moderate amount of snoring about 20% of the time mild nocturnal hypoxemia with average O2 sat 93% and O2 sat below 88% for 5 minutes highest heart rate was over 200 Recommend aggressive weight reduction and position therapy, could consider CPAP [facility] Compliance done 01/11/25 Code(s): G47.33 - Obstructive sleep apnea (adult) (pediatric) Category: Medical (3) Influenza vaccination declined: Code(s): Z28.21 - Immunization not carried out because of patient refusal Category: Medical (4) Mass of left lower leg: Code(s): R22.42 - Localized swelling, mass and lump, left lower limb Category: Medical (5) FRANKLIN (generalized anxiety disorder): Code(s): F41.1 - Generalized anxiety disorder Category: Medical (6) MDD (major depressive disorder), recurrent episode: Code(s): F33.9 - Major depressive disorder, recurrent, unspecified Category: Medical Qualifiers: Major depression episode severity: mild Qualified Code(s): F33.0 - Major depressive disorder, recurrent, mild (7) Low motivation: Code(s): R46.89 - Other symptoms and signs involving appearance and behavior Category: Medical (8) Moderate persistent asthma: Code(s): J45.40 - Moderate persistent asthma, uncomplicated Category: Medical Qualifiers: Asthma complication type: uncomplicated Qualified Code(s): J45.40 - Moderate persistent asthma, uncomplicated Plan . Orders: Orders MR Tibia/Fib LT wo Contrast Today R22.42 - Localized swelling, mass and lump, left lower limb Referrals Medical Weight Management Referral E66.01 - Morbid (severe) obesity due to excess calories, Z68.42 - Body mass index [BMI] 45.0-49.9, adult Medications: New bupropion HCl XL (Wellbutrin XL) 300 mg PO QAM 90 tabs 0RF Discontinued bupropion HCl XL (Wellbutrin XL) Discontinued Reason: Patient Completed Course 150 mg PO QAM 30 tabs 1RF
[2025-01-11 12:50] VITALS: BP 118/70; PULSE 78; RESP 12; TEMP 36.2; O2SAT 98; BMI 47.5
== END 2025-01-11 13:23 | disposition home or self-care (01) ==
LOC: HO.HMCFM 12:45
PROVIDERS: PCP Nurse Practitioner Family; Visit Provider Nurse Practitioner Family
DX: E66.01 Morbid (severe) obesity due to excess calories (principal); Z68.42 Body mass index [BMI] 45.0-49.9, adult; G47.33 Obstructive sleep apnea (adult) (pediatric); Z28.21 Immunization not carried out because of patient refusal; R22.42 Localized swelling, mass and lump, left lower limb; F41.1 Generalized anxiety disorder; F33.0 Major depressive disorder, recurrent, mild; R46.89 Other symptoms and signs involving appearance and behavior; J45.40 Moderate persistent asthma, uncomplicated

== ENCOUNTER → 2025-01-11 12:44 | Outpatient (BNVA) | payer OTHER, SELFPAY | PROVIDERS: PCP Nurse Practitioner Family; Visit Provider Nurse Practitioner Family | DX: G47.33 Obstructive sleep apnea (adult) (pediatric) (principal); E66.01 Morbid (severe) obesity due to excess calories; R22.42 Localized swelling, mass and lump, left lower limb; F41.1 Generalized anxiety disorder; F33.0 Major depressive disorder, recurrent, mild; J45.40 Moderate persistent asthma, uncomplicated; Z28.21 Immunization not carried out because of patient refusal; Z68.42 Body mass index [BMI] 45.0-49.9, adult | CPT/HCPCS: 96127; 99212 ==

== ENCOUNTER 2025-02-15 13:27 | Outpatient (AMB) | payer OTHER, SELFPAY ==
--- NOTE | 2025-02-15 13:38 | A.OFFVIS_ITS ---
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 Thus, last year, she underwent HST, which showed sleep apnea, and she was started on PAP tx in Apr. However, she continues to have excessive daytime sleepiness. She states she usually wakes up refreshed, but then becomes very sleepy after 9-10 am. Sleep history questionnaire: Have you ever been diagnosed with a sleep disorder? yes, mild JETT Have you ever had a sleep study in the past? 02/02/2024, HST: AHI 5.1 per hour, O2 timoteo 63%, SpO2 under 88% for 5 minutes and under 90% for 12 minutes of study time, and average SpO2 93%. Snoring was present for 20% of study time. Have you ever been treated for a sleep disorder? Currently using PAP tx. Has never tried a sleep or weight promoting medication. Do you take medications/supplements for a sleep disorder? none. Does take Buproprion in the am for her mood. Current sleep symptom questionnaire: Pt reports she wakes up refreshed, but then becomes sleepy around 9-10 am and can easily falls asleep when inactive. Pt reports prior to starting PAP tx, she had snoring, nocturnal gasping, witnessed apneas, but this has all resolved since starting PAP tx. Pt reports she is prone to nocturnal leg cramps, but this has been better lately. Endorses a history of RLS symptoms, but more so before starting iron supplementation. Pt reports vivid dreams even with her CPAP. Denies PTSD, sleep behaviors, parasomnias?, sleep paralysis, nocturnal enuresis, sleep terrors, hypnagogic hallucination, hallucinations, early onset REM sleep, sudden episodes of weakness, sudden episodes of weakness triggered by strong emotions, or drop attacks. 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 Electronic use in bedroom: Phone a little bit before bedtime Exercise: Regular exercise: spin class at 5 pm 1-2 x's per week, gym once a week Caffeine or other stimulants: rarely takes a celsisus energy drink in the am. tries to avoid soda intake. does not drink coffee. Compliance Report Respiratory company: [facility] 30-day compliance report: 01/15/2025 - 02/13/2025 Overall usage: 73 % Usage greater than 4 hours: 70% Average usage on days used: 7 hours and 19 minutes [employer] 11 AutoSet Serial number [id number] Mode AutoSet Min Pressure 8-20 cmH2O EPR 2 Response * Maximum pressure 11.9 cm H2O Leaks: * Median leaks 0 L/min * Maximum leaks: 11.9 year per minute Residual events per hour: * AHI 0.3 per hour PFSH Medical History (Updated 03/02/25 @ 12:[address] Cheema) Hypertension Anxiety IBS (irritable bowel syndrome) Asthma Surgical History (Updated 10/30/24 @ 14:43 by Annalisa Harris CMA) Hx of wisdom tooth extraction Hx of appendectomy Family History (Updated 12/17/23 @ 11:09 by Patricia Reeves CMA) Father HTN (hypertension) Maternal Grandmother Diabetes Mother Cancer Other Thyroid cancer Social History (Updated 10/30/24 @ 14:43 by Annalisa Harris CMA) Housing: House Alcohol intake: current Alcohol intake frequency: holidays/special occasions only Patient Tobacco Use Status: Never used Tobacco e-Cigarette/Vaping Use: Never Used Second Hand Smoke Exposure: No service: No Current occupational status: employed 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 Current occupational exposures/hazards: No Cognitive needs: No Hearing needs: No Vision needs: No Physical Exam Vital Signs: Last Vital Signs Pulse 94 02/15/25 13:39 BP 120/84 02/15/25 13:39 Pulse Ox 94 02/15/25 13:39 Oxygen Delivery Method Room Air 02/15/25 13:39 BMI result Body Mass Index 47.5 Const General: no acute distress Orientation/consciousness: patient oriented x3 HEENT Other: Mallampati stage Resp Effort & Inspection: normal respiratory effort and able to speak in complete sentences Neuro Other: Binocular diplopia elicited in a left superior lateral visual field and on convergence Negative bilateral Tinel, Phalen and medial carpal tunnel compression test General: patient oriented x3 and moves all extremities Cranial nerves: Yes CN's II-XII intact bilaterally Motor exam (neuro): 5/5 motor strength present throughout Psych Mental Status: mental status grossly normal Speech and movement: Clear speech present Attitude: cooperative Assessment & Plan Assessment & Plan (1) JETT (obstructive sleep apnea): Comment: 02/08/24 home sleep study BAEZA 5.1, 0AI 1.3, CARI, 0, lowest desaturation 63% Diagnosis of obstructive sleep apnea, AHI 5, most obstructive events were in the supine position with supine AHI 7.6, moderate amount of snoring about 20% of the time mild nocturnal hypoxemia with average O2 sat 93% and O2 sat below 88% for 5 minutes highest heart rate was over 200 Recommend aggressive weight reduction and position therapy, could consider CPAP [facility] Compliance done 01/11/25 Code(s): G47.33 - Obstructive sleep apnea (adult) (pediatric) Category: Medical (2) Chronic fatigue: Code(s): R53.82 - Chronic fatigue, unspecified Category: Medical (3) Hypersomnia, persistent: Code(s): G47.10 - Hypersomnia, unspecified Category: Medical Plan * Patient is advised to undergo a follow-up in-lab PAP titration sleep study, to identify optimal PAP treatment settings, as well as to assess for any indications of residual periodic limb movement of sleep-as she continues to have significant hypersomnia despite consistent PAP therapy use. * We will request ENT consult to assess for alternative interventions for snoring * Check vitamin-D level * Continue iron supplementation, in a person with RLS symptoms, ferritin level is at least 100 * In the meantime, continue APAP 8-20 cm H2O with EPR 2. * Clean CPAP machine and supplies routinely. * Change CPAP supplies routinely. * Use distilled water in CPAP water reservoir. * Pt to contact us or respiratory company with any questions or concerns. * Additionally, continue simple strategies to improve sleep quality by optimizing sleep hygiene such as avoiding caffeine at least 6-8 hours before bedtime, going to bed when tired, maintaining a routine bedtime and wake-up schedule, engaging in regular physical activity. * We will further address her chronic diplopia and hand tingling symptoms and follow-up. Will follow-up upon review of above and patient to follow-up in clinic in 3-6 months or sooner prn. Coding Level of Care Code New Pt Level 4 (10992) Diagnoses JETT (obstructive sleep apnea) G47.33 Chronic fatigue R53.82 Hypersomnia, persistent G47.10
[2025-02-15 13:39] VITALS: BP 120/84; PULSE 94; O2SAT 94; BMI 47.5
--- OUTSIDE RECORDS SUMMARY | 2025-02-15 16:22 | XMS_ITS | Data Portability ---
Author Organization VISHAL Matos [facility], [address] Address [address] [place] [address] Assessment No assessment recorded. Plan of Treatment Reminders Order Date Submit Date Provider Last Modified By Organization Details Last Modified Time Details Appointments None recorded. Lab rapid strep group A, throat 2021 [facility], [address] [place] [address], [place], [address], 15:22:14 streptococc us group A, culture, throat 2021 [place] [facility], [address] [place] [address], [place], [address], 12:06:25 Referral None recorded. Procedures None recorded. Surgeries None recorded. Imaging None recorded. Medication Orders amoxicillin 500 mg capsule 2021 [facility], [address] [facility], [address], [place], [address], 15:22:15 Patient TargetsNo targets recorded. Patient Instructions Encounter Date Encounter Id Patient Instructions Last Modified By Organization Details Last Modified Time 03/17/2022 [id number] sore throat: car e instructions [email or web address] Not available 03/17/2022 15:22:14 Based on your [...] 6. Severe Headache Thank you for using [facility] today, please feel free to contact our office if you have any questions or concerns. Not available 03/17/2022 15:20:48 Reason for Referral None Reported. Results Created Date Observation Date Name Description Value Unit Range Abnormal Flag Note LastModifiedBy Organization Detail LastModifiedTime 03/17/20 22 03/20/2022 BETA STREP GP A CULTU RE beta strep gp A culture Negati ve Refer ence Range : Negat carly Not Available [facility] ([facility]) [address] [facility], [place], [address], 03/20/2022 14:06:37 03/17/20 22 03/17/2022 rapid strep group A, throa t Unknown Analyte negati ve Not Available [address], [address], 03/17/2022 14:56:30 03/17/20 22 03/17/2022 rapid strep group A, throa t Unknown Analyte Normal = Negati ve Not Available [address] [place] [address], [address], 03/17/2022 14:56:30 Result Notes None recorded. Problems Name Problem SNOMED Code Status Onset Date Resolution Date Notes Provider Name and Address Organization Details Recorded Time Asthma [id number] Active DENISE perla PA - [facility] 03/17/2022 14:57:44 Problem Notes None recorded. Procedures Surgical History Date Name Laterality Status Provider Name and Address Organization Details Recorded Time Appendectomy completed DENISE RODGERS - [facility] 03/17/2022 14:58:23 Imaging Results None [...] Heart rate Respiratory rate Body temperature Systolic And Diastolic Provider Name and Address Organization Details Last Updated DateTime 157.48 cm 45.7 kg/m2 750451. 09 g 98 % 98 % 100 /min 18 /min 98.8 [degF] 118/77 mm[Hg] DENISE SWEENEY PA - [facility] 14:59:17 Social History Question Answer Notes LastModified by Organizat ion Details LastModified Time Tobacco Smoking Status Never Smoker VISHAL Carrasquillo - [facility] 03/17/2022 14:58:04 Have You Recently Traveled Abroad? No [email or web address] Information not available 03/17/2022 Sex: Unknown Functional Status Question Answer Note LastModified by Organizat ion Details LastModified Time Do you use any illicit or recreational drugs? No [email or web address] Information not available 03/17/2022 Do you or have you ever used any other forms of tobacco or nicotine? No [email or web address] Information not available 03/17/2022 What is your level of alcohol consumption? Occasional [email or web address] Information not available 03/17/2022 Mental Status None recorded. Family History Relationship Description Onset Age of this Age Resolved Age Notes LastModified by Organization Details LastModified Time Father No current problems or disability Not available 03/17 14:57:49 Mother No current problems or disability [email or web address] Not available 03/17 14:57:49 Medical History No medical history recorded. Gynecological HistoryNo gynecological history recorded. Obstetrics History GPAL:G 0 P 0 0 0 0 Past Encounters Encounter ID Performer Location Encounter Start Date Encounter Closed Date Diagnosis/Indication Diagnosis SNOMED-CT Code Diagnosis ICD10 Code Diagnosis IMO Codes Diagnosis Note [id number] [address] [place] [address] 12/19/2016 11:43:47 12/19/2016 12:58:15 [id number] [address] [place] [address] 11/30/2016 08:59:36 11/30/2016 10:04:56 [id number] VISHAL HIGGINS [address] [address] 03/17/2022 13:44:09 03/17/2022 15:23:30 Acute pharyngitis 296033180 J02.9 Health Concerns Section Related Observation LastModified by Organization Detai ls LastModified Time None Recorded Concern Status LastModified by Organization Details LastModified Time None Recorded Advance Directives Directive None Recorded Payers Insurance Date Sequence Insurance Name Policy Number Policy Cyr Covered Member ID Cyr Member ID Guarantor Name 05/18/2022 1 [employer] (PPO) [id number] Jane Rubios [id number] Jane Ackerman Hemant 05/18/2022 1 [place]: [facility] Jane Everettyes [id number] Jane Ackerman Hemant 05/18/2022 1 UMR (PPO) [id number] Jane Ackerman Hemant [id number] Pandatrina Meka Marcos Notes Date Note Type Note Provider Name and Address Organization Details Recorded Time 03/17/2022 text/html Sore throatRepor neida by PatientSore ThroatFor associated symptoms, patient reportssore throat,weakness,fever,h oarseness, andnausea. For source of patient information, patient reportsinformation obtained from patientandpatient arrived at urgent care ambulatory. For location, patient reportsthroat. For severity, patient reportsmild. For onset/timing, patient reports3 days. VISHAL HIGGINS [facility] [place], [address], [place] - [facility] 03/18/2022 08:19:34 OBGyn Episode No OBEpisode recorded.
== END 2025-02-15 14:49 | disposition home or self-care (01) ==
LOC: HO.HSMS 13:28
PROVIDERS: PCP Nurse Practitioner Family; Visit Provider Nurse Practitioner Family
DX: G47.33 Obstructive sleep apnea (adult) (pediatric) (principal); R53.82 Chronic fatigue, unspecified; G47.10 Hypersomnia, unspecified
CPT/HCPCS: 99204

== ENCOUNTER → 2025-02-15 13:27 | Outpatient (BNVA) | payer OTHER, SELFPAY | PROVIDERS: PCP Nurse Practitioner Family; Visit Provider Nurse Practitioner Family | DX: G47.33 Obstructive sleep apnea (adult) (pediatric) (principal); R53.82 Chronic fatigue, unspecified; G47.10 Hypersomnia, unspecified; Z99.89 Dependence on other enabling machines and devices | CPT/HCPCS: 99202 ==

== ENCOUNTER → 2025-03-19 15:47 | Outpatient (BNV) | payer OTHER, SELFPAY | PROVIDERS: Visit Provider Radiology Diagnostic Radiology | DX: R22.42 Localized swelling, mass and lump, left lower limb (principal) | CPT/HCPCS: 73720 ==

== ENCOUNTER 2025-03-19 15:50 | Outpatient (REF) | payer OTHER, SELFPAY ==
--- NOTE | ~2025-03-19 | MR_ITS ---
EXAM: MR Tibia/fib Lt Wo/w Contrast TECHNIQUE: Multiplanar - multisequence imaging through the tibia/fibula was performed without and with IV contrast. IV contrast: 10 mL Gadavist INDICATION: Lump, odd growth on lateral side of fibula, pain with prolonged walking PRIOR: Ultrasound on 01/13/2024 FINDINGS: 2 fiducial markers placed, one above and another below the region of the patient's complaint. BONES/MARROW: No marrow replacing lesions. Bone marrow signal is physiologic. NEUROVASCULAR: No abnormalities are present along the major neurovascular bundles. SOFT TISSUES: There is no discrete mass. There is fatty replacement of peroneus longus muscle superficial to the myotendinous junction in the lower leg. There is also fatty replacement of the extensor digitorum longus muscle along its superficial margin. Between the markers, the overlying fascia appears focally discontinuous with very mild bulging of the adjacent fatty replaced extensor digitorum longus muscle. The area of fascial discontinuity is very small, 2-3 mm. There is no muscle edema. There is no fatty streaking of musculature otherwise. Fluid signal mildly reticulates the subcutaneous soft tissues consistent with mild edema. MR/MR Tibia/Fib LT wo/w Contrast IMPRESSION: No discrete mass. There is a possible 2-3 mm focal area of discontinuity in the fascia in the region where the patient complains of a lump. There is no discrete herniation. There is subtle bulging of underlying extensor digitorum longus muscle which demonstrates superficial fatty replacement of the muscle. Also incidentally noted is fatty replacement of the peroneus longus muscle superficial to the myotendinous junction. Electronically signed by: Osman Watt MD 03/19/2025 05:20 PM [facility]
--- OUTSIDE RECORDS SUMMARY | 2025-03-20 01:33 | XMS_ITS | Clinical Summary ---
Author Organization 175 [facility] Address [address] [place] [address] Phone Care Team Providers Care Instructional Technology Teacher Name Role Phone Becca Miller Primary Care Provider Allergies No known active allergies Active Problems Problem Noted Date Diagnosed Date PCOS (polycystic ovarian syndrome) 07/01/2021 Obstructive sleep apnea 05/26/2019 Overview (04/13/2024): [facility] Home Sleep Apnea Test: Date 05/18/2019; Wt 230#; BMI 42; LIZZETH 6, AI 0; HI 6; Unclassified apneas 0; Obstructive apneas 1; Central apneas 0; Mixed apneas 0; hypopneas 38; average oxygen saturation 96% (lowest 81% without saturations <88% for 5% or more of study) - Obstructive Sleep Apnea - mild; mostly hypopneas; without sleep related hypoventilation by 2019 home sleep apnea test. Influenza A 04/26/2018 Anxiety 11/24/2016 Asthma, mild intermittent 11/24/2016 Leg mass 11/24/2016 Immunizations Immunization Administration Dates Next Due DTaP (Infanrix) 6wks to less than 7yo ,08/20/1997,1996,06/12,1996 [id number]-HEL-WNS (Pentacel) 2mo to less than 5yo 05/18/1997,1996,1996,04/14 Hepatitis B Pediatric (Enger ix B; Recombivax HB) to less than 20 yo 1996,1996,1996 IPV Inactivated polio (Ipol) 6wks and older 08/13/2000,1996,1996,04/14 MMR, measles mumps and rubel la Live (Priorix; M-M-R II) 12mo and older 08/13/2000,1997 Meningococcal MCV4P 03/06/2014,08/23/2007 Td Tetanus diptheria (Tdvax) 7yo and older 08/10/2011 Tdap Tetanus diptheria acell ular pertussis (Boostrix; Adacel) 7yo and older 07/09/2006 Varicella live (Varivax) 12m o and older 08/23/2007,1997 Surgical History Surgery Date Site/Laterality Comments APPENDECTOMY 10/28/2021 PROCEDURE: HISTORICAL APPENDECTOMY; COMMENT: [facility] Medical History Medical History Date Comments Anxiety 11/24/2016 DX:Anxiety Asthma, mild intermittent 11/24/2016 DX:Ast hma, mild intermittent Leg mass 11/24/2016 DX:Leg mass Family History Medical History Relation Name Comments Multiple sclerosis Mother Breast cancer Neg Hx Colon cancer Neg Hx Ovarian cancer Neg Hx Relation Name Status Comments Mother Social History Tobacco Use Types Packs/Day Years Used Date Smoking Tobacco: Never Smokeless Tobacco: Never Alcohol Use Standard Drinks/Week Comments Yes 0 (1 standard drink = 0.6 oz pur e alcohol) Comments Unknown Sex and Gender Information Value Date Recorded Sex Assigned at Not on file Legal Sex Female 4:17 AM EST Gender Identity Not on file Sexual Orientation Not on file Last Filed Vital Signs Vital Sign Reading Time Taken Comments Blood Pressure 112/74 08/17/2022 8:24 AM EDT Pulse 98 08/17/2022 8:24 AM EDT Temperature - - Respiratory Rate - - Oxygen Saturation - - Inhaled Oxygen Concentration - - Weight 117 kg (257 lb) 08/17/2022 8:24 AM EDT Height 157.5 cm (5' 2 ) 01/07/2022 3:45 PM EDT Body Mass Index 47.01 01/07/2022 3:45 PM EDT Plan of Treatment Upcoming Encounters Date Type Department Care Team (Late st Contact Info) Description 07/26/2025 1:30 PM EDT Office Visit Bariatric Surgery - [address] [address] Silvia Kunz MD [facility] [place] [address] Health Maintenance Due Date Last Done Comments Pneumococcal Vaccine: Pediatrics (0 to 5 Years) and At-Risk Patients (6 to 49 Years) (1 of 2 - PCV) 02/11/2015 DTaP,Tdap,and Td Vaccines (8 - Td or Tdap) 08/09/2021 08/10/2011, 07/09/2006, 08/13/2000, Additional history exists HIV Screening 03/21/2022 Hepatitis C Screening 03/21/2022 Social Influencers of Health Screening 03/21/2022 HPV Vaccines (1 - 3-dose SCDM series) 02/11/2023 Depression Screening 04/12/2024 Cervical Cancer Screening: Pap Smear 07/01/2024 07/01/2021, 07/01/2021, 02/14/2018 COVID-19 Vaccine ( season) 2024 10/08/2020, 09/16/2020 Influenza Vaccine (#1) 2024 RSV Immunization Adult Patients (1 - 1-dose 75+ series) 02/11/2071 Hepatitis B Vaccines Completed 1996, 1996, 1996 HIB Vaccines Completed 05/18/1997, 09/1996, 1996, Additional history exists IPV Vaccines Completed 08/13/2000, 09/1997, 1996, Additional history exists MMR Vaccines Completed 08/13/2000, 1997 Varicella Vaccines Completed 08/23/2007, 1997 Meningococcal ACWY Vaccine Completed 03/06/2014, Hepatitis A Vaccines Aged Out No long er eligible based on patient's age to complete this topic Meningococcal B Vaccine Aged Out No l onger eligible based on patient's age to complete this topic RSV Immunization Patients Under 20 months Aged Out No longer eligible based on patient's age to complete this topic Procedures Procedure Name Priority Date/Time Associated Diagnosis Comments PAP SMEAR Routine 07/01/2021 from Last 3 Months or Most Recently Relevant to Health Maintenance Results * Pap smear (07/01/2021) 07/01/2021 Narrative HISTORICAL TESTING LAB RESULTING AGENCY - 07/11/2021 3:50 PM EDT [id number] THINPREP PAP, IMAGED: NEGATIVE FOR SQUAMOUS INTRAEPITHELIAL LESION AND MALIGNANCY. NOTE: THE PAP TEST IS A SCREENING TEST WITH AN INHERENT FALSE NEGATIVE RATE. AUTOMATED PRESCREENING OF ALL LIQUID BASED SPECIMENS IS PERFORMED BY THE THINPREP IMAGING SYSTEM UNLESS OTHERWISE STATED. GRIFFIN ERNST(ASCP) (CASE ELECTRONICALLY SIGNED 07 11 2021) ADEQUACY: SATISFACTORY ENDOCERVICAL/TRANSFORMATION ZONE COMPONENT PRESENT. SOURCE: THINPREP PAP HPV IF ASCUS, CERVICAL, IMAGED CLINICAL INFORMATION: HPV IF DIAGNOSIS OF ASCUS. Z12.4 us Josee [facility] CYTOLOGY ORDERABLES Final R esult HISTORICAL TESTING LAB RESULTING AGENCY from Last 3 Months or Most Recently Relevant to Health Maintenance Insurance [facility] Care Teams Instructional Technology Teacher Relationship Specialty Start Date End Date Becca Miller FNP [address] [place] [address] [place] [address] PCP - General Nurse Practitioner 01/18/25
--- OUTSIDE RECORDS SUMMARY | 2025-03-20 01:33 | XMS_ITS | Data Portability ---
Author Organization VISHAL Matos [facility], [address] Address [address] [place] [address] Assessment No assessment recorded. Plan of Treatment Reminders Order Date Submit Date Provider Last Modified By Organization Details Last Modified Time Details Appointments None recorded. Lab rapid strep group A, throat 2021 [email or web address], [address] [place] [address], [place], [address], 15:22:14 streptococc us group A, culture, throat 2021 [facility], [address] [place] [address], [place], [address], 12:06:25 Referral None recorded. Procedures None recorded. Surgeries None recorded. Imaging None recorded. Medication Orders amoxicillin 500 mg capsule 2021 [facility], [address] [facility], [address], [place], [address], 15:22:15 Patient TargetsNo targets recorded. Patient Instructions Encounter Date Encounter Id Patient Instructions Last Modified By Organization Details Last Modified Time 03/17/2022 [id number] sore throat: car e instructions [email or web address] Not available 03/17/2022 15:22:14 Based on your [...] 6. Severe Headache Thank you for using [facility] today, please feel free to contact our office if you have any questions or concerns. [email or web address] Not available 03/17/2022 15:20:48 Reason for Referral None Reported. Results Created Date Observation Date Name Description Value Unit Range Abnormal Flag Note LastModifiedBy Organization Detail LastModifiedTime 03/17/20 22 03/20/2022 BETA STREP GP A CULTU RE beta strep gp A culture Negati ve Refer ence Range : Negat carly Not Available [facility] ([facility]) [address] [facility], [place], [address], 03/20/2022 14:06:37 03/17/20 22 03/17/2022 rapid strep group A, throa t Unknown Analyte negati ve Not Available [address] ne[address], [address], 03/17/2022 14:56:30 03/17/20 22 03/17/2022 rapid strep group A, throa t Unknown Analyte Normal = Negati ve Not Available [facility] [address], [address], 03/17/2022 14:56:30 Result Notes None recorded. Problems Name Problem SNOMED Code Status Onset Date Resolution Date Notes Provider Name and Address Organization Details Recorded Time Asthma [id number] Active VISHAL Carrasquillo [facility] 03/17/2022 14:57:44 Problem Notes None [...] mass index (BMI) Body weight Oxygen saturation Heart rate Respiratory rate Body temperature Systolic And Diastolic Provider Name and Address Organization Details Last Updated DateTime 157.48 cm 45.7 kg/m2 845881. 09 g 98 % 100 /min 18 /min 98.8 [degF] 118/77 mm[Hg] DENISE RODGERS - [facility] 12/06/202 2 14:59:17 Social History Question Answer Notes LastModified by Organizat [facility] Details LastModified Time Tobacco Smoking Status Never Smoker VISHAL Carrasquillo - [facility] 03/17/2022 14:58:04 Have You Recently Traveled Abroad? No [email or web address] Information not available 03/17/2022 Sex: Unknown Functional Status Question Answer Note LastModified by Organizat [facility] Details LastModified Time Do you use any illicit or recreational drugs? No Information not available 03/17/2022 Do you or have you ever used any other forms of tobacco or nicotine? No [email or web address] Information not available 03/17/2022 What is your level of alcohol consumption? Occasional [email or web address] Information not available 03/17/2022 Mental Status None recorded. Family History Relationship Description Onset Age of this Age Resolved Age Notes LastModified by Organization Details LastModified Time Father No current problems or disability [email or web address] Not available 03/17 14:57:49 Mother No current problems or disability [email or web address] Not available 03/17 14:57:49 Medical History No medical history recorded. Gynecological HistoryNo gynecological history recorded. Obstetrics History GPAL:G 0 P 0 0 0 0 Past Encounters Encounter ID Performer Location Encounter Start Date Encounter Closed Date Diagnosis/Indication Diagnosis SNOMED-CT Code Diagnosis ICD10 Code Diagnosis IMO Codes Diagnosis Note [id number] [address] [place] [address] 12/19/2016 11:43:47 12/19/2016 12:58:15 [id number] [address] [place] [address] 11/30/2016 08:59:36 11/30/2016 10:04:56 [id number] VISHAL HIGGINS [address] [facility] [facility] [address] [place] [address] 03/17/2022 13:44:09 03/17/2022 15:23:30 Acute pharyngitis 441324848 J02.9 Health Concerns Section Related Observation LastModified by Organization Rodrigoai ls LastModified Time None Recorded Concern Status LastModified by Organization Details LastModified Time None Recorded Advance Directives Directive None Recorded Payers Insurance Date Sequence Insurance Name Policy Number Policy Cyr Covered Member ID Cyr Member ID Guarantor Name 05/18/2022 1 [employer] (PPO) [id number] Jane Ackerman Hemant [id number] Jane Meka Marcos 05/18/2022 1 [place] [facility] Jane Meka Marcos [id number] Pandatrina Meka Marcos 05/18/2022 1 UMR (PPO) [id number] Jane Meka Marcos [id number] Pandatrina Meka Marcos Notes Date Note Type Note Provider Name and Address Organization Details Recorded Time 03/17/2022 text/html Sore throatRepor neida by PatientSore ThroatFor associated symptoms, patient reportssore throat,weakness,fever,h oarseness, andnausea. For source of patient information, patient reportsinformation obtained from patientandpatient arrived at urgent care ambulatory. For location, patient reportsthroat. For severity, patient reportsmild. For onset/timing, patient reports3 days. VISHAL HIGGINS [address] [place], [address], [place] - [facility] 03/18/2022 08:19:34 OBGyn Episode No OBEpisode recorded.
== END 2025-03-19 15:51 | disposition home or self-care (01) ==
LOC: HO.MRI 15:50
PROVIDERS: Visit Provider Nurse Practitioner Family
DX: R22.42 Localized swelling, mass and lump, left lower limb (principal)
CPT/HCPCS: 73720; A9585

== ENCOUNTER 2025-03-20 15:17 | Outpatient (REF) | payer OTHER, SELFPAY ==
--- NOTE | ~2025-03-20 | US_ITS ---
EXAMINATION: US THYROID CLINICAL INFORMATION: Z 80.8. Family history of malignant neoplasm of other organs or cisterns. COMPARISON: January 14, 2024. TECHNIQUE: Linear transducer grayscale and color Doppler examination with attention to the region of the thyroid. FINDINGS: SIZE: Measurements of the thyroid lobes and nodules are given in sagittal, anteroposterior and transverse dimensions respectively. Right Thyroid Lobe: 5.1 x 1.7 x 1.3 cm, volume 6.0 mL. Previous: 5.1 x 1.9 x 2.2 cm, volume: 11 cc. Parenchyma: The gland echotexture is heterogeneous. Thyroid vascularity is normal. Left Thyroid Lobe: 5.7 x 1.9 x 2.3 cm, volume 13.2 mL. Previous: 4.9 x 1.6 x 2.0 cm, volume: 8.0 cc. Parenchyma: The gland echotexture is heterogeneous. Thyroid vascularity is normal. Isthmus: 0.59 cm in maximum AP dimension. Previous: 0.3 Estimated total number of nodules greater than or equal to 1 cm: 4. [employer] nodules are described as follows: 1. Location: Lower pole, right lobe. Size: 1.6 x 0.91 x 1.1 cm, volume 0.86 mL. Previous: 1.1 x 1.2 x 1.0 cm, volume: 0.86 cc. Nodule characteristics: Composition: Undetermined (2) Echogenicity: Very hypoechoic (3). Shape: Not taller than wide (0). Margins: Smooth (0). Echogenic Foci: None (0). ACR TI-RADS total points: 5 ACR TI-RADS category: 4 2. Location: Lower pole right lobe. Size: 1.5 x 1.0 x 1.2 cm, volume 0.91 mL. Previous: 0.7 x 0.6 x 0.8 cm, volume: 0.16 cc. Nodule characteristics: Composition: Mixed cystic and solid (1). Echogenicity: Very hypoechoic (3). Shape: Not taller than wide (0). Margins: Smooth (0). Echogenic Foci: None (0). ACR TI-RADS total points: 4 ACR TI-RADS category: 4 3. Location: Lower pole left lobe. Size: 1.2 x 0.9 x 1.3 cm, volume 0.7 mL. Previous: 1.3 x 1.1 x 0.7 cm, volume: 0.52 cc. Nodule characteristics: Composition: Mixed cystic and solid (1). Echogenicity: Very hypoechoic (3). Shape: Not taller than wide (0). Margins: Smooth (0). Echogenic Foci: None (0). ACR TI-RADS total points: 4 ACR TI-RADS category: 4 4. Location: Lower pole left lobe. Size: 1.4 x 0.75 x 1.0 cm, volume 0.53 mL. Previous: 1.2 x 0.74 x 0.6 cm, volume: 0.3 cc. Nodule characteristics: Composition: Mixed cystic and solid (1). Echogenicity: Very hypoechoic (3). Shape: Not taller than wide (0). Margins: Smooth (0). Echogenic Foci: None (0). ACR TI-RADS total points: 4 ACR TI-RADS category: 4 NODES: No lymphadenopathy is seen in the tissue surrounding the thyroid gland. US/US thyroid IMPRESSION: ACR TI RADS category 4. ACR TI-RADS RECOMMENDATION REFERENCE: Ultrasound-guided fine-needle aspiration, followup ultrasound, no further follow up. * TR1 (0 point) and TR2 (2 points): No FNA or follow up. * TR3 (3 points): FNA if more than or equal to 2.5 cm in maximum dimension, followup ultrasound in 1, 3 and 5 years if 1.5 to 2.4 cm in maximum dimension. * TR4 (4-6 points): FNA if more than or equal to 1.5 cm in maximum dimension, followup ultrasound in 1, 2, 3 and 5 years if 1 to 1.4 cm in maximum dimension. * TR5 (more than or equal to 7 points): FNA if more than or equal to 1 cm in maximum dimension, followup ultrasound every year for 5 years if 0.5 to 0.9 cm in maximum dimension. * TR3, TR4 or TR5 nodules that are below the size threshold for followup receive no follow up. Electronically signed by: Wilder Charles MD 03/20/2025 03:58 PM [facility]
--- OUTSIDE RECORDS SUMMARY | 2025-03-20 21:40 | XMS_ITS | Clinical Summary ---
Author Organization 175 [facility] Address [address] [place] [address] Phone Care Team Providers Care Assembler Gold Frame Name Role Phone Becca Miller Primary Care Provider [phone] Allergies No known active allergies Active Problems Problem Noted Date Diagnosed Date PCOS (polycystic ovarian syndrome) 07/01/2021 Obstructive sleep apnea 05/26/2019 Overview (04/13/2024): [facility] Sleep Apnea Test: Date 05/18/2019; Wt [...] (Infanrix) 6wks to less than 7yo ,08/20/1997,1996,06/12,1996 [id number] (Pentacel) 2mo to less than 5yo 05/18/1997,1996,1996,04/14 [...] Comments APPENDECTOMY 10/28/2021 PROCEDURE: HISTORICAL APPENDECTOMY; COMMENT: [facility] Medical History Medical History Date Comments Anxiety [...] PM EDT Office Visit Bariatric Surgery - [address] [address] Silvia Kunz MD [facility] [place] [address] Health Maintenance Due Date Last [...] RESULTING AGENCY - 07/11/2021 3:50 PM EDT [id number] THINPREP PAP, IMAGED: NEGATIVE FOR SQUAMOUS INTRAEPITHELIAL [...] Most Recently Relevant to Health Maintenance Insurance [facility] Care Teams Assembler Gold Frame Relationship Specialty Start Date End Date Becca Miller FNP [address] [place] [address] [place] [address] PCP - General Nurse Practitioner 01/18/25
== END 2025-03-20 15:18 | disposition home or self-care (01) ==
LOC: HO.HMGCX 15:17
PROVIDERS: PCP Nurse Practitioner Family; Visit Provider Nurse Practitioner Family
DX: E04.2 Nontoxic multinodular goiter (principal); Z80.8 Family history of malignant neoplasm of other organs or systems
CPT/HCPCS: 76536

== ENCOUNTER → 2025-03-20 15:21 | Outpatient (BNV) | payer OTHER, SELFPAY | PROVIDERS: PCP Nurse Practitioner Family; Visit Provider Radiology Diagnostic Radiology | DX: E04.2 Nontoxic multinodular goiter (principal); Z80.8 Family history of malignant neoplasm of other organs or systems | CPT/HCPCS: 76536 ==

== ENCOUNTER 2025-03-22 12:51 | Outpatient (AMB) | payer OTHER, SELFPAY ==
--- NOTE | 2025-03-22 12:59 | A.OFFPC_ITS ---
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: No Allergies No Known Allergies Allergy (Verified 03/22/25 13:43) Medication List - Last Reconciled 03/22/25 by Becca Miller, [facility]- albuterol sulfate 90 mcg/actuation 2 puffs inhalation Q6H PRN bupropion HCl XL (Wellbutrin XL) 300 mg PO QAM drospirenone-ethinyl estradiol 3-0.03 mg 1 tab PO DAILY ferrous sulfate 325 mg PO DAILY fluticasone propionate 50 mcg/actuation (Flonase Allergy Relief) 1 spray intranasal BID ipratropium-albuterol 0.5 mg-3 mg(2.5 mg base)/3 mL 3 mL inhalation QID PRN levocetirizine 5 mg PO DAILY magnesium oxide 250 mg PO DAILY nebulizers (Altera Nebulizer System) USE QID PRN WHEEZING paroxetine HCl 10 mg PO DAILY propranolol 10 mg PO DAILY PRN Tobacco use date assessed: 03/22/25 Dental Screening Dental Screen Date: 01/11/25 HPI HPI Comments History of Present Illness Details 30-year-old female with moderate persist ent asthma, PCOS, morbid obesity, obstructive sleep apnea (home sleep study 02/08/24), generalized anxiety disorder, seasonal allergies, prediabetes, hidradenitis suppurativa, fatty liver, thyroid nodules, JETT on CPAP, Fhx MS in Mom Status post appendectomy Family hx: Sister thyroid cancer 2022 age 27, Mom with MS, MGM DM, PGF COPD 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 Tibial mass: - The patient has a discrete mass on her left tibia, which was investigated with an MRI. - The MRI results are consistent with an old childhood injury - This condition limits her ability to w alk long distances due to pain and swelling in the mass area. - She has not had physical therapy for t his issue. - She reports that spin classes do not b other the leg, but she experienced a strange, persistent spasm in her ankle area the previous night. - She denies symptoms of nerve pain, tho ugh chronic nerve entrapment can be associated with this condition. Thyroid Nodules: - The patient has a history of thyroid n odules and a family history of thyroid cancer, necessitating annual ultrasound monitoring. - She underwent a biopsy last year. - The recent annual ultrasound showed th at she now has four nodules, all of which are classified as TI-RADS 4, an increase from one previously. - Her sister also has thyroid issues and was seen at the same facility, [facility]. - During her previous biopsy, she experi enced a severe panic attack. Anxiety and Depression: - The patient is being treated for anxie ty and depression, with a recent increas e in her Wellbutrin (bupropion) dosage. - She reports that her anxiety has been rough lately due to the stress of a home buying process. - Apart from situational stress, she fee ls the medication has been helping. - She continues to use propranolol as ne eded. - Her paroxetine is due for a refill. - She has lost weight since last visit w / wellbutrin; cont to exercise Neurological Symptoms and Family History of MS: - The patient has a family history of mu ltiple sclerosis (MS); her mother, uncle, and aunt have the condition. - Her mother's initial MS symptom was co mplete numbness on the left side of her body. - She reports symptoms including chronic fatigue, paresthesia with numbness in her hands, restless legs, and being exhausted all the time. - She rarely gets headaches. - She saw a neurologist @ [facility], for these symptoms, but felt the visit was unproductive as the neurologist seemed to think she was there for chronic migraines. Note reviewed. - The neurologist's plan included a foll ow-up PAP titration study, an ENT consultation, checking a vitamin D level, and continuing iron supplementation. - The neurologist mentioned a possible M RI to rule out MS but did not order it. Past Medical History - Childhood trauma to the left leg - Thyroid biopsy (last year) - Anxiety and depression - Family history of thyroid cancer - Family history of multiple sclerosis ( mother, uncle, aunt) Review of Systems - General: Reports chronic fatigue and e xhaustion. - Neurological: Reports hand numbness/ti ngling, restless legs, and chronic double vision. Denies frequent headaches. - Musculoskeletal: Reports a mass on the left tibia that causes pain and swelling with walking. Reports a recent ankle spasm in the left leg. - Psychiatric: Reports increased anxiety and stress related to home buying. Reports claustrophobia. Physical Exam General: Well developed, well nourished, in no acute distress. Appears stated age. Head: Normocephalic, atraumatic. Eyes: Pupils are equal, round and reactive to light and accommodation. Conjunctivae are clear. Neck: nodular nontender thyroid Lungs: Clear to auscultation bilaterally. No rales, rhonchi or wheeze noted. Good air flow in all kennedy. Heart: Regular rate and rhythm. No murmurs, click, rubs or gallops are noted. Musculoskeletal: Joints are nontender, without swelling, redness, or effusions. Palpable mass L anterior lower leg Pulses: Peripheral pulses are equal and palpable bilaterally. Extremities: No clubbing, cyanosis nor edema is noted. Psych: Mood and affect appropriate, but patient reports increased anxiety due to home buying process and thyroid concerns. Results See below Medical Decision Making The patient presented for follow-up on three main issues: left tibial mass, thyroid nodules, and anxiety/depression. The MRI of her left leg revealed a chronic deformity of the muscle consistent with an old traumatic injury, not a neoplastic process. Given her symptoms of pain on ambulation and potential ankle instability, physical therapy to focus on ankle stability exercises is a reasonable first step rather than a surgical consult with orthopedics, as this is not typically a surgical case. The thyroid ultrasound showed interval growth and an increase in the number of nodules to four, all now classified as TI-RADS 4. Given the changes and family history of thyroid cancer, a repeat fine-needle aspiration is warranted. An urgent referral back to the endocrinology group at [facility], where she was previously seen, is being placed to ensure continuity of care and prompt evaluation. Her anxiety and depression are partially managed with bupropion, which is reportedly helping, and propranolol as needed. Her current regimen will be continued. To address her significant procedural anxiety, particularly for the upcoming biopsy and MRI, Ativan will be prescribed for anxiolysis. Finally, given her neurological symptoms (paresthesia, fatigue) and strong family history of multiple sclerosis, an MRI of the brain and cervical spine is being ordered to rule out MS. This is being ordered urgently to attempt completion before her insurance plan changes at the start of the year. Plan 1. Tibial Mass, Left - The MRI findings were reviewed, confir akila the mass is a chronic deformity from a childhood trauma and not cancerous. - Physical therapy was discussed to impr ove ankle stability and pain, however, the patient opted to defer and will perform ankle stability exercises at home for now. - Consultation with orthopedics and EMG for nerve entrapment were discussed as options but declined at this time. - The patient was advised to follow up i f symptoms worsen. 2. Multiple Thyroid Nodules - The recent thyroid ultrasound results were reviewed, noting an increase to f our TI-RADS 4 nodules, which now require repeat FNA. - An urgent referral will be placed to [facility] at [facility] for evaluation and repeat biopsy, ensuring continuity of care. - The patient will be responsible for ca talia to schedule her appointment. - Ativan will be prescribed for procedur al anxiety, with instructions on dosing for the biopsy based on her experience with the MRI. 3. Anxiety And Depression - The patient reports that bupropion is helping with her mood and has led to some weight loss. - Will continue current medications: bup ropion and paroxetine daily, and propranolol as needed. - A refill for paroxetine will be sent t o the pharmacy. - Will prescribe four tablets of Ativan (lorazepam) for use as needed for procedural anxiety (MRI, thyroid biopsy). 4. Neurological Symptoms And Rule Out Mu ltiple Sclerosis - Due to a strong family history of MS a nd symptoms of chronic fatigue, paresthesia, and hand tingling, an MRI of the brain and cervical spine with contrast will be ordered to rule out multiple sclerosis. - The order will be placed as urgent to attempt to have the scan completed before the end of the year, prior to her insurance change. - Prescribed Ativan to manage claustroph obia during the MRI. - The patient will book a physical exam in April to follow up on the MRI results and the status of the thyroid biopsy. Patient Instructions - Your left leg mass is from an old chil dhood injury and is not cancer. For now, you can try doing ankle stability exercises at home. Let me know if the pain gets worse. - Your recent thyroid ultrasound shows t hat your thyroid nodules have changed. You need to see a specialist for another evaluation and likely another biopsy. We will send a referral to the endocrinology group at [facility], but you should call them to make your appointment. - Continue taking your bupropion (Wellbu shirley), paroxetine, and propranolol as prescribed. I am sending a refill for your paroxetine. - I am ordering an MRI of your brain and neck to check for multiple sclerosis (MS) because of your family history and symptoms. Please try to get this done before the end of the year for insurance reasons. - I am prescribing Ativan (lorazepam) to help with anxiety and claustrophobia before your MRI and thyroid procedure. Take one tablet about 30 minutes before your MRI. You must have someone drive you. Based on how you feel, you can consider taking one or two tablets before your thyroid biopsy, but make sure to tell the doctor performing the procedure that you have taken it. - Please schedule your annual physical f or April to review the results of your MRI and the plan for your thyroid. Consent Patient was informed and verbally consented to the use of an ambient scribe for clinic note documentation during this visit. Total time spent caring for the patient today was 40 minutes. This includes time spent before the visit reviewing the chart, time spent during the visit, and time spent after the visit on documentation, reviewing laboratory results, diagnostic imaging, medications, performing a medically necessary evaluation, counseling on diagnoses, care coordination, ordering appropriate tests, ordering appropriate medications, review of tests performed by other providers, reporting test results with the patient, communication with other healthcare providers. [facility] Medical History (Updated 03/22/25 @ 14:53 by NAIDA Casey) Anxiety Asthma Hypertension IBS (irritable bowel syndrome) Surgical History Hx of appendectomy Hx of wisdom tooth extraction Family History Father HTN (hypertension) Maternal Grandmother Diabetes Mother Cancer Other Thyroid cancer Social History (Updated 03/22/25 @ 13:06 by Patricia Reeves CMA) Housing: House Alcohol intake: current Alcohol intake frequency: holidays/special occasions only Patient Tobacco Use Status: Never used Tobacco e-Cigarette/Vaping Use: Never Used Second Hand Smoke Exposure: No service: No Current occupational status: employed 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 Current occupational exposures/hazards: No Cognitive needs: No Hearing needs: No Vision needs: No Questionnaire Thrive Questionnaire Date Thrive assessed: 04/13/24 I am a: Patient What is your living situation today?: I have a steady place to live Within the past 12 months, did the food you bought not last and you didn't have the money to get more?: Never true Within the past 12 months, did you worry whether your food would run out before you got money to buy more?: Never true Do you have trouble paying for medicines?: No Do you have trouble getting transportation to medical appointments?: No Do you have trouble paying your heating and electricity bill?: No Do you have trouble taking care of your child, family member or friend?: No Do you have trouble with day-to-day activities such as bathing, preparing meals, shopping, managing finances, etc.?: No Are you currently unemployed and looking for a job?: No Are you interested in more education?: No Please select the resources that you would like help with: None Currently or been in a relationship where the following occur: No concerns reported THRIVE Score: 0 AUDIT C Alcohol Use Questionnaire (AUDIT-C) 1. How often do you have a drink containing alcohol?: Never 3. How often do you have six or more drinks on one occasion?: Never Total Score: 0 FRANKLIN-7 AMB Questionnaire FRANKLIN-7 Date FRANKLIN - 7 assessed: 01/11/25 Source: Developed by Drs. Avtar Tanner, Doris Akins, Raza Lobato and colleagues, with an educational viktor from [employer]. Physical exam (Primary Care) Vital Signs: Last Vital Signs Temp 98.8 F 03/22/25 13:00 Pulse 100 03/22/25 13:00 Resp 14 03/22/25 13:00 BP 112/84 03/22/25 13:00 Pulse Ox 98 03/22/25 13:00 Oxygen Delivery Method Room Air 03/22/25 13:00 BMI result Body Mass Index 46.3 Tobacco/Smoking Status: Tobacco use Status Tobacco use date assessed 03/22/25 03/22/25 13:06 Patient Tobacco Use Status Never used Tobacco 03/22/25 13:06 e-Cigarette/Vaping Use Never Used 03/22/25 13:06 Thrive Assessment: Date of Thrive Assessment Date Thrive assessed 04/13/24 03/22/25 13:06 Currently or been in a relationship where the following occur: No concerns re ported Results Reviewed Results Reviewed: 03/2025Patient: Jane Marcos MR#: [id number] : 1995 Acct:[id number] Age/Sex: 30 / F ADM Date: 03/20/25 Loc: HO.HMGCX Attending Dr: Becca PASCAL Ordering Physician: Becca Miller Date of Service: 03/20/25 Procedure(s): US thyroid Accession Number(s): [id number] cc: Becca Miller~ Reason for Exam: Z80.8 - Family history of malignant neoplasm of other organs or systems EXAMINATION: US THYROID CLINICAL INFORMATION: Z 80.8. Family history of malignant neoplasm of other organs or cisterns. COMPARISON: January 14, 2024. TECHNIQUE: Linear transducer grayscale and color Doppler examination with attention to the region of the thyroid. FINDINGS: SIZE: Measurements of the thyroid lobes and nodules are given in sagittal, anteroposterior and transverse dimensions respectively. Right Thyroid Lobe: 5.1 x 1.7 x 1.3 cm, volume 6.0 mL. Previous: 5.1 x 1.9 x 2.2 cm, volume: 11 cc. Parenchyma: The gland echotexture is heterogeneous. Thyroid vascularity is normal. Left Thyroid Lobe: 5.7 x 1.9 x 2.3 cm, volume 13.2 mL. Previous: 4.9 x 1.6 x 2.0 cm, volume: 8.0 cc. Parenchyma: The gland echotexture is heterogeneous. Thyroid vascularity is normal. Isthmus: 0.59 cm in maximum AP dimension. Previous: 0.3 Estimated total number of nodules greater than or equal to 1 cm: 4. Carpenter'S Assistant nodules are described as follows: 1. Location: Lower pole, right lobe. Size: 1.6 x 0.91 x 1.1 cm, volume 0.86 mL. Previous: 1.1 x 1.2 x 1.0 cm, volume: 0.86 cc. Nodule characteristics: Composition: Undetermined (2) Echogenicity: Very hypoechoic (3). Shape: Not taller than wide (0). Margins: Smooth (0). Echogenic Foci: None (0). ACR TI-RADS total points: 5 ACR TI-RADS category: 4 2. Location: Lower pole right lobe. Size: 1.5 x 1.0 x 1.2 cm, volume 0.91 mL. Previous: 0.7 x 0.6 x 0.8 cm, volume: 0.16 cc. Nodule characteristics: Composition: Mixed cystic and solid (1). Echogenicity: Very hypoechoic (3). Shape: Not taller than wide (0). Margins: Smooth (0). Echogenic Foci: None (0). ACR TI-RADS total points: 4 ACR TI-RADS category: 4 3. Location: Lower pole left lobe. Size: 1.2 x 0.9 x 1.3 cm, volume 0.7 mL. Previous: 1.3 x 1.1 x 0.7 cm, volume: 0.52 cc. Nodule characteristics: Composition: Mixed cystic and solid (1). Echogenicity: Very hypoechoic (3). Shape: Not taller than wide (0). Margins: Smooth (0). Echogenic Foci: None (0). ACR TI-RADS total points: 4 ACR TI-RADS category: 4 4. Location: Lower pole left lobe. Size: 1.4 x 0.75 x 1.0 cm, volume 0.53 mL. Previous: 1.2 x 0.74 x 0.6 cm, volume: 0.3 cc. Nodule characteristics: Composition: Mixed cystic and solid (1). Echogenicity: Very hypoechoic (3). Shape: Not taller than wide (0). Margins: Smooth (0). Echogenic Foci: None (0). ACR TI-RADS total points: 4 ACR TI-RADS category: 4 NODES: No lymphadenopathy is seen in the tissue surrounding the thyroid gland. US/US thyroid IMPRESSION: ACR TI RADS category 4. ACR TI-RADS RECOMMENDATION REFERENCE: Ultrasound-guided fine-needle aspiration, followup ultrasound, no further follow up. * TR1 (0 point) and TR2 (2 points): No FNA or follow up. * TR3 (3 points): FNA if more than or equal to 2.5 cm in maximum dimension, followup ultrasound in 1, 3 and 5 years if 1.5 to 2.4 cm in maximum dimension. * TR4 (4-6 points): FNA if more than or equal to 1.5 cm in maximum dimension, followup ultrasound in 1, 2, 3 and 5 years if 1 to 1.4 cm in maximum dimension. * TR5 (more than or equal to 7 points): FNA if more than or equal to 1 cm in maximum dimension, followup ultrasound every year for 5 years if 0.5 to 0.9 cm in maximum dimension. * TR3, TR4 or TR5 nodules that are below the size threshold for followup receive no follow up. Electronically signed by: Wilder Charles MD 03/20/2025 03:58 PM [facility] tient: Jane Marcos MR#: [id number] : 1995 Acct:[id number] Age/Sex: 30 / F ADM Date: 03/19/25 Loc: .MRI Attending Dr: Becca HILLSPJUNG Ordering Physician: Becca Miller Date of Service: 03/19/25 Procedure(s): MR Tibia/Fib LT wo/w Contrast Accession Number(s): [id number] cc: Becca Miller~ Reason for Exam: R22.42 - Localized swelling, mass and lump, left lower limb EXAM: MR Tibia/fib Lt Wo/w Contrast TECHNIQUE: Multiplanar - multisequence imaging through the tibia/fibula was performed without and with IV contrast. IV contrast: 10 mL Gadavist INDICATION: Lump, odd growth on lateral side of fibula, pain with prolonged walking PRIOR: Ultrasound on 01/13/2024 FINDINGS: 2 fiducial markers placed, one above and another below the region of the patient's complaint. BONES/MARROW: No marrow replacing lesions. Bone marrow signal is physiologic. NEUROVASCULAR: No abnormalities are present along the major neurovascular bundles. SOFT TISSUES: There is no discrete mass. There is fatty replacement of peroneus longus muscle superficial to the myotendinous junction in the lower leg. There is also fatty replacement of the extensor digitorum longus muscle along its superficial margin. Between the markers, the overlying fascia appears focally discontinuous with very mild bulging of the adjacent fatty replaced extensor digitorum longus muscle. The area of fascial discontinuity is very small, 2-3 mm. There is no muscle edema. There is no fatty streaking of musculature otherwise. Fluid signal mildly reticulates the subcutaneous soft tissues consistent with mild edema. MR/MR Tibia/Fib LT wo/w Contrast IMPRESSION: No discrete mass. There is a possible 2-3 mm focal area of discontinuity in the fascia in the region where the patient complains of a lump. There is no discrete herniation. There is subtle bulging of underlying extensor digitorum longus muscle which demonstrates superficial fatty replacement of the muscle. Also incidentally noted is fatty replacement of the peroneus longus muscle superficial to the myotendinous junction. Electronically signed by: Osman Watt MD 03/19/2025 05:20 PM EST Coding Level of Care Code Est Pt Level 5 (87723) Add On Problem Visit Only Diagnoses Family history of thyroid cancer Z80.8 Multiple thyroid nodules E04.2 Mass of left lower leg R22.42 Chronic fatigue R53.82 Family history of MS (multiple sclerosis) Z82.0 Paresthesia of both hands R20.2 FRANKLIN (generalized anxiety disorder) F41.1 Mild episode of recurrent major depressive disorder F33.0 Major depression episode severity: mild Assessment & Plan Assessment & Plan (1) Family history of thyroid cancer: Comment: sister Code(s): Z80.8 - Family history of malignant neoplasm of other organs or systems Category: Medical (2) Multiple thyroid nodules: Comment: *FN bx negative 03/2024. Cleared by [facility] for PCP managed annual US, due in January. 01/10/24 CLINICAL INFORMATION: Family history of malignant neoplasm of other organs or systems. COMPARISON: None available. TECHNIQUE: Linear transducer grayscale and color Doppler examination with attention to the region of the thyroid. FINDINGS: SIZE: Measurements of the thyroid lobes and nodules are given in sagittal, anteroposterior and transverse dimensions respectively. Right Thyroid Lobe: 5.1 x 1.9 x 2.2 cm, volume 11 mL. Parenchyma: The gland echotexture is homogeneous. Thyroid vascularity is normal. Left Thyroid Lobe: 4.9 x 1.6 x 2.0 cm, volume 8 mL. Parenchyma: The gland echotexture is homogeneous. Thyroid vascularity is normal. Isthmus: 0.3 cm in maximum AP dimension. Estimated total number of nodules greater than or equal to 1 cm: 2. Carpenter'S Assistant nodules are described as follows: 1. Location: Right mid. Size: 0.9 x 0.5 x 0.7 cm, volume 0.16 mL. Nodule characteristics: Composition: Solid (2). Echogenicity: Hypoechoic (2). Shape: Not taller than wide (0). Margins: Ill-defined (0). Echogenic Foci: None (0). ACR TI-RADS total points: 4 ACR TI-RADS category: 4 2. Location: Right inferior. Size: 1.1 x 1.2 x 1.0 cm, volume 0.8 mL. Nodule characteristics: Composition: Mixed cystic and solid (1). Echogenicity: Isoechoic (1). Shape: Not taller than wide (0). Margins: Ill-defined (0). Echogenic Foci: None (0). ACR TI-RADS total points: 5 ACR TI-RADS category: 4 3. Location: Right inferior. Size: 0.7 x 0.6 x 0.8 cm, volume 0.16 mL. Nodule characteristics: Composition: Solid/almost completely solid (2). Echogenicity: Isoechoic (1). Shape: Not taller than wide (0). Margins: Ill-defined (0). Echogenic Foci: None (0). ACR TI-RADS total points: 3 ACR TI-RADS category: 3 4. Location: Left inferior. Size: 1.3 x 0.7 x 1.1 cm, volume 0.5 mL. Nodule characteristics: Composition: Mixed cystic and solid (1). Echogenicity: Isoechoic (1). Shape: Not taller than wide (0). Margins: Ill-defined (0). Echogenic Foci: None (0). ACR TI-RADS total points: 2 ACR TI-RADS category: 2 5. Location: Left inferior. Size: 1.2 x 0.6 x 0.7 cm, volume 0.3 mL. Nodule characteristics: Composition: Solid/almost completely solid (2). Echogenicity: Isoechoic (1). Shape: Not taller than wide (0). Margins: Ill-defined (0). Echogenic Foci: None (0). ACR TI-RADS total points: 3 ACR TI-RADS category: 3 NODES: No lymphadenopathy is seen in the tissue surrounding the thyroid gland. US/US thyroid IMPRESSION: Right inferior pole 1.2 cm TI-RADS 4 nodule. Remaining nodules do not meet size criteria for follow-up. 03/2025 Patient: Jane Marcos MR#: [id number] : 1995 Acct:[id number] Age/Sex: 30 / F ADM Date: 03/20/25 Loc: HO.HMGCX Attending Dr: Becca PASCAL Ordering Physician: Becca Miller Date of Service: 03/20/25 Procedure(s): US thyroid Accession Number(s): [id number] cc: Becca Miller~ Reason for Exam: Z80.8 - Family history of malignant neoplasm of other organs or systems EXAMINATION: US THYROID CLINICAL INFORMATION: Z 80.8. Family history of malignant neoplasm of other organs or cisterns. COMPARISON: January 14, 2024. TECHNIQUE: Linear transducer grayscale and color Doppler examination with attention to the region of the thyroid. FINDINGS: SIZE: Measurements of the thyroid lobes and nodules are given in sagittal, anteroposterior and transverse dimensions respectively. Right Thyroid Lobe: 5.1 x 1.7 x 1.3 cm, volume 6.0 mL. Previous: 5.1 x 1.9 x 2.2 cm, volume: 11 cc. Parenchyma: The gland echotexture is heterogeneous. Thyroid vascularity is normal. Left Thyroid Lobe: 5.7 x 1.9 x 2.3 cm, volume 13.2 mL. Previous: 4.9 x 1.6 x 2.0 cm, volume: 8.0 cc. Parenchyma: The gland echotexture is heterogeneous. Thyroid vascularity is normal. Isthmus: 0.59 cm in maximum AP dimension. Previous: 0.3 Estimated total number of nodules greater than or equal to 1 cm: 4. [employer] nodules are described as follows: 1. Location: Lower pole, right lobe. Size: 1.6 x 0.91 x 1.1 cm, volume 0.86 mL. Previous: 1.1 x 1.2 x 1.0 cm, volume: 0.86 cc. Nodule characteristics: Composition: Undetermined (2) Echogenicity: Very hypoechoic (3). Shape: Not taller than wide (0). Margins: Smooth (0). Echogenic Foci: None (0). ACR TI-RADS total points: 5 ACR TI-RADS category: 4 2. Location: Lower pole right lobe. Size: 1.5 x 1.0 x 1.2 cm, volume 0.91 mL. Previous: 0.7 x 0.6 x 0.8 cm, volume: 0.16 cc. Nodule characteristics: Composition: Mixed cystic and solid (1). Echogenicity: Very hypoechoic (3). Shape: Not taller than wide (0). Margins: Smooth (0). Echogenic Foci: None (0). ACR TI-RADS total points: 4 ACR TI-RADS category: 4 3. Location: Lower pole left lobe. Size: 1.2 x 0.9 x 1.3 cm, volume 0.7 mL. Previous: 1.3 x 1.1 x 0.7 cm, volume: 0.52 cc. Nodule characteristics: Composition: Mixed cystic and solid (1). Echogenicity: Very hypoechoic (3). Shape: Not taller than wide (0). Margins: Smooth (0). Echogenic Foci: None (0). ACR TI-RADS total points: 4 ACR TI-RADS category: 4 4. Location: Lower pole left lobe. Size: 1.4 x 0.75 x 1.0 cm, volume 0.53 mL. Previous: 1.2 x 0.74 x 0.6 cm, volume: 0.3 cc. Nodule characteristics: Composition: Mixed cystic and solid (1). Echogenicity: Very hypoechoic (3). Shape: Not taller than wide (0). Margins: Smooth (0). Echogenic Foci: None (0). ACR TI-RADS total points: 4 ACR TI-RADS category: 4 NODES: No lymphadenopathy is seen in the tissue surrounding the thyroid gland. US/US thyroid IMPRESSION: ACR TI RADS category 4. ACR TI-RADS RECOMMENDATION REFERENCE: Ultrasound-guided fine-needle aspiration, followup ultrasound, no further follow up. * TR1 (0 point) and TR2 (2 points): No FNA or follow up. * TR3 (3 points): FNA if more than or equal to 2.5 cm in maximum dimension, followup ultrasound in 1, 3 and 5 years if 1.5 to 2.4 cm in maximum dimension. * TR4 (4-6 points): FNA if more than or equal to 1.5 cm in maximum dimension, followup ultrasound in 1, 2, 3 and 5 years if 1 to 1.4 cm in maximum dimension. * TR5 (more than or equal to 7 points): FNA if more than or equal to 1 cm in maximum dimension, followup ultrasound every year for 5 years if 0.5 to 0.9 cm in maximum dimension. * TR3, TR4 or TR5 nodules that are below the size threshold for followup receive no follow up. Electronically signed by: Wilder Charles MD 03/20/2025 03:58 PM [facility] Code(s): E04.2 - Nontoxic multinodular goiter Category: Medical (3) Mass of left lower leg: Comment: MRI 03/19/25 BONES/MARROW: No marrow replacing lesions. Bone marrow signal is physiologic. NEUROVASCULAR: No abnormalities are present along the major neurovascular bundles. SOFT TISSUES: There is no discrete mass. There is fatty replacement of peroneus longus muscle superficial to the myotendinous junction in the lower leg. There is also fatty replacement of the extensor digitorum longus muscle along its superficial margin. Between the markers, the overlying fascia appears focally discontinuous with very mild bulging of the adjacent fatty replaced extensor digitorum longus muscle. The area of fascial discontinuity is very small, 2-3 mm. There is no muscle edema. There is no fatty streaking of musculature otherwise. Fluid signal mildly reticulates the subcutaneous soft tissues consistent with mild edema. MR/MR Tibia/Fib LT wo/w Contrast IMPRESSION: No discrete mass. There is a possible 2-3 mm focal area of discontinuity in the fascia in the region where the patient complains of a lump. There is no discrete herniation. There is subtle bulging of underlying extensor digitorum longus muscle which demonstrates superficial fatty replacement of the muscle. Also incidentally noted is fatty replacement of the peroneus longus muscle superficial to the myotendinous junction. Code(s): R22.42 - Localized swelling, mass and lump, left lower limb Category: Medical (4) Chronic fatigue: Code(s): R53.82 - Chronic fatigue, unspecified Category: Medical (5) [place] history of [place] (multiple [place] [facility] [place]): Z82.0 - Family history of epilepsy and other diseases of the nervous system Category: Medical (6) Paresthesia of both hands: Code(s): R20.2 - Paresthesia of skin Category: Medical (7) FRANKLIN (generalized anxiety disorder): Code(s): F41.1 - Generalized anxiety disorder Category: Medical (8) MDD (major depressive disorder), recurrent episode: Code(s): F33.9 - Major depressive disorder, recurrent, unspecified Category: Medical Qualifiers: Major depression episode severity: mild Qualified Code(s): F33.0 - Major depressive disorder, recurrent, mild Plan . Orders: Orders MR head/brain wo/w con Today R20.2 - Paresthesia of skin, R22.42 - Localized swelling, mass and lump, left lower limb, R53.82 - Chronic fatigue, unspecified, Z82.0 - Family history of epilepsy and other diseases of the nervous system MR cervical spine wo/w con Today R20.2 - Paresthesia of skin, R22.42 - Localized swelling, mass and lump, left lower limb, R53.82 - Chronic fatigue, unspecified, Z82.0 - Family history of epilepsy and other diseases of the nervous system Referrals Endocrinology Referral E04.2 - Nontoxic multinodular goiter, Z80.8 - Family history of malignant neoplasm of other organs or systems Medications: New lorazepam (Ativan) TAKE 30 MIN BEFORE PROCEDURE PRN ANXIETY 1 mg PO DIRECTED PRN 4 tabs 0RF anxiety Refilled bupropion HCl XL (Wellbutrin XL) 300 mg PO QAM 90 tabs 0RF paroxetine HCl 10 mg PO DAILY 90 tabs 1RF
[2025-03-22 13:00] VITALS: BP 112/84; PULSE 100; RESP 14; TEMP 37.1; O2SAT 98; BMI 46.3
== END 2025-03-22 14:01 | disposition home or self-care (01) ==
LOC: HO.HMCFM 12:52
PROVIDERS: PCP Nurse Practitioner Family; Visit Provider Nurse Practitioner Family
DX: E04.2 Nontoxic multinodular goiter (principal); F33.0 Major depressive disorder, recurrent, mild; F41.1 Generalized anxiety disorder; R22.42 Localized swelling, mass and lump, left lower limb; R20.2 Paresthesia of skin; Z82.0 Family history of epilepsy and other diseases of the nervous system; Z80.8 Family history of malignant neoplasm of other organs or systems

== ENCOUNTER → 2025-03-22 12:51 | Outpatient (BNVA) | payer OTHER, SELFPAY | PROVIDERS: PCP Nurse Practitioner Family; Visit Provider Nurse Practitioner Family | DX: Z71.2 Person consulting for explanation of examination or test findings (principal); E04.2 Nontoxic multinodular goiter; R22.42 Localized swelling, mass and lump, left lower limb; F41.1 Generalized anxiety disorder; F33.0 Major depressive disorder, recurrent, mild; Z82.0 Family history of epilepsy and other diseases of the nervous system; Z80.8 Family history of malignant neoplasm of other organs or systems | CPT/HCPCS: 99212 ==